=== PATIENT | male | born 1950 | race Caucasian/White ===

== ENCOUNTER 2017-06-11 06:19 | Day surgery (SDC) | payer MEDICARE ==
[2017-06-10 15:34] VITALS: BMI 42.7
[2017-06-11] MEDS ORDERED: CEFAZOLIN/Water 2 GM/20 ML SYRINGE ONE (08:14)
[2017-06-11 08:38] LABS: #Eosinphils 0.1 thou/uL (0.0-0.7); #Monocytes 0.7 thou/uL (0.11-0.59); #Neutrophils 8.6 thou/uL (1.40-6.50); %Basophils 0.1 % (0.0-1.0); %Eosinophils 1.2 % (0.0-10.0); %Monocytes 6.8 % (0.0-10.0); Hematocrit 22.7 % (42.0-52.0); Mean Platelet Volume 6.7 fL (7.4-10.4); Red Blood Cell (RBC) Count 2.61 mill/uL (4.70-6.10); White Blood Cell (WBC) Count 10.4 thou/uL (4.8-10.8)
[2017-06-11 08:41] LABS: Bilirubin Negative (Negative); Blood, Urine Moderate (Negative); Glucose, Urine (Dipstick) Negative (Negative); Ketone, Urine Trace mg/dL (Negative); Nitrite Negative (Negative); Protein, Urine (Dipstick) 100 mg/dL (Neg-Trace); Urobilinogen 0.2 mg/dL (0.2-1.0)
[2017-06-11 08:45] LABS: PTT 30.2 SEC (22.9-36.1); Prothrombin Time 15.7 SEC (12.0-14.7)
[2017-06-11 08:50] LABS: Anion Gap 12 mmol/L (10-20); BUN (Urea Nitrogen) 44 mg/dL (8.4-25.7); Calc. Creatinine Clearance 51 mL/min (70-130); Calcium 8.3 mg/dL (7.8-10.44); Carbon Dioxide 28 mmol/L (23-31); Chloride 105 mmol/L (98-107); Estimated GFR-MDRD 22
[2017-06-11] MEDS ORDERED: Promethazine HCl 25 MG/ML VIAL ONE (08:58)
[2017-06-11] MEDS ORDERED: Fentanyl 100 MCG/2 ML VIAL ONE (08:58)
[2017-06-11] MEDS ORDERED: Sodium Chloride 0.9% 10 ML ONE (08:59)
[2017-06-11 09:09] LABS: Bacteria/HPF 1+ HPF (None Seen); Hyaline Casts/LPF NONE SEEN LPF (0-3 Hyaline); RBC/HPF 0-3 HPF (0-3); Squamous Epithelial 0-3 HPF (0-3); WBC/HPF 0-3 HPF (0-3)
[2017-06-11] MEDS ORDERED: Glycopyrrolate 0.2 MG/ML 5 ML SYRINGE ONE (09:37)
[2017-06-11] MEDS ORDERED: ePHEDrine/0.9% NaCl/PF SYRINGE 50 mg/10 ml ONE (09:37)
[2017-06-11] MEDS ORDERED: Lidocaine 1% PF 5 ML VIAL ONE (09:37)
[2017-06-11] MEDS ORDERED: Ondansetron HCl/PF 4 MG/2 ML Vial ONE (09:37)
[2017-06-11] MEDS ORDERED: PHENYLEPHRINE-NS 100 MCG/ML 10 ML SYRINGE ONE (09:37)
[2017-06-11] MEDS ORDERED: Propofol 200 MG/20 ML VIAL ONE (09:37)
--- NOTE | 2017-06-11 09:45 | RAD ---
CHEST ONE VIEW: HISTORY: Preop. COMPARISON: 02/25/2017 FINDINGS: The cardiac silhouette is magnified and at the upper limits of normal in size. Pulmonary vasculatur e is at the upper limits of normal and accentuated by shallow inspiration. Mediastinum is midline w ith postoperative changes evident. Opacity at each costophrenic angle, greater on the right, has th e appearance of pleural fluid. IMPRESSION: Borderline pulmonary vascular congestion with small bilateral pleural effusions. POS: [facility]
[2017-06-11] MEDS ORDERED: Nystatin Cream 30 GM TUBE TOP SCH (10:00)
[2017-06-11] MEDS ORDERED: Bacitracin Zinc Ointment 30 gm TUBE ONE (10:10)
[2017-06-11] MEDS ORDERED: Furosemide 20 MG/2 ML VIAL ONE (10:37)
[2017-06-11] MEDS ORDERED: HYDROcodone/Acetaminophen 5/325 mg Tablet ONE (13:34)
--- NOTE | 2017-06-11 14:33 | OP ---
DATE OF SURGERY: 06/11/2017 PREOPERATIVE DIAGNOSIS: Right patellar tendon, 2 cm open wound with exposed tendon. FINDINGS: 1. Right patellar tendon, 2 cm open wound with exposed tendon. No gross infection. 2. Multiple fungal infection areas, perineum and distal two-thirds of the leg. COMPLICATIONS: None. TOURNIQUET TIME: None. ESTIMATED BLOOD LOSS: Less than or equal to 5 mL. PROCEDURE: 1. Debridement of wound. 2. Patellar tendon tenotomy. 3. Application of Integra graft, 2 inch x 2 inch to cover what really was a 1.5 inch diameter wound rectangular shaped. 4. Application of nystatin ointment to all the fungal areas of the right leg and the perineum at th e end of the procedure. COMPLICATIONS: At the end of the procedure after we had placed the dressings on the fungal portions of the leg and the patella operation, the patient began to have copious bowel movements requiring c hanges of dressing and perineal care. This occurred in the operating room. ANESTHESIA: Anesthesia by [facility]. PROCEDURE IN DETAIL: The limb prepped and draped. Timeout was done appropriately. The patient was large and had to be placed on the bed using a HoverMatt. HoverMatt had been deflated. We did tie lower extremity completely prepped and draped the ankle and foot covered with a sterile s tockinette, we then began a debridement. We used a tenotomy scissor, 11 blade knife, Adson's, and a curet. We debrided the wound edges down to include the fascia and patellar tendon. I then perform ed patellar tenotomy approximately 1-1.5 mm stick accomplished to get to fresh tendon as the remaini ng tendon seen was already exposed to the air. We then dissected around the tissue between the tend on and the subcutaneous tissue and the tendon and deep and we did not find a joint infection, both v isible or expressible. We irrigated the area with 500 mL normal saline. We obtained hemostasis. We then placed Integra gr aft on the wound, stapled it down appropriately, including stapled in the center. It was then bolst ered with bacitracin under Adaptic under soaked salt mineral oil cotton balls. All was stapled. Th ere was no gross motion at the bolstered area. This would be with the knee flexed 90 degrees, but t he patient does not ambulate. We then placed bacitracin on the patient's leg from the edge of the patella tendon dressing to the m edial malleolus and cover that with a Kerlix, and then placed [place] wrap on both. When we tried to pr epare the patient to leave the bed, he began to have a bowel movement described above which required cleaning, and eventually had to place him in a diaper. He left; however, with this cleaned with ev idence of an external hemorrhoid. Bacitracin was also applied in the scrotal area where he had some fungus as well. The patient went to recovery room without evidence of anesthetic or operative complication.
--- NOTE | 2017-06-11 16:13 | EKG ---
Test Reason : PREOP Blood Pressure : / mmHG Vent. Rate : 106 BPM Atrial Rate : 106 BPM P-R Int : 000 ms QRS Dur : 086 ms QT Int : 350 ms P-R-T Axes : 065 017 160 degrees QTc Int : 464 ms Sinus tachycardia Low voltage QRS Possible Inferior infarct (cited on or before 05-NOV-1996) Abnormal ECG When compared with ECG of 23-JAN-2017 09:43, Vent. rate has increased BY 44 BPM T wave inversion more evident in Lateral leads Confirmed by DR. Teetee VALDIVIA ([id number]) on 06/11/2017 4:13:02 PM Referred By: TAMI Confirmed By:DR. Teetee VALDIVIA
== END 2017-06-11 13:55 | disposition home or self-care (01) ==
LOC: SDC 06:19
PROVIDERS: ATTEND Orthopaedic Surgery Hand Surgery
DX: T81.4XXA Infection following a procedure, initial encounter (principal); S82.191G Other fracture of upper end of right tibia, subsequent encounter for closed fracture with delayed healing; E11.40 Type 2 diabetes mellitus with diabetic neuropathy, unspecified; E11.319 Type 2 diabetes mellitus with unspecified diabetic retinopathy without macular edema; E11.21 Type 2 diabetes mellitus with diabetic nephropathy; E78.5 Hyperlipidemia, unspecified; I11.0 Hypertensive heart disease with heart failure; I50.9 Heart failure, unspecified; I25.10 Atherosclerotic heart disease of native coronary artery without angina pectoris; K21.9 Gastro-esophageal reflux disease without esophagitis; E03.9 Hypothyroidism, unspecified; E66.9 Obesity, unspecified; Z88.2 Allergy status to sulfonamides; Z98.890 Other specified postprocedural states
CPT/HCPCS: 15273; 71010; 80048; 81001; 82962; 85025; 85610; 85730; 93005; C9363; 36416; 93010; A4216; J1170; J1940; J2001; J2405; J2550; J2704; J3010; J3490

== ENCOUNTER 2017-08-10 19:12 | Inpatient (IN) | payer MEDICARE ==
[2017-08-10 20:18] LABS: #Eosinphils 0.2 thou/uL (0.0-0.7); #Lymphocytes 1.3 thou/uL (1.20-3.40); #Monocytes 0.8 thou/uL (0.11-0.59); %Eosinophils 2.1 % (0.0-10.0); %Lymphocytes 12.4 % (21.0-51.0); %Monocytes 8.1 % (0.0-10.0); %Neutrophils 77.5 % (42.0-75.0); Hemoglobin 7.3 g/dL (14.0-18.0); Mean Corpuscular HGB CONC 31.6 g/dL (32.0-36.0); Mean Corpuscular Volume 88.6 fl (80.0-94.0); Mean Platelet Volume 6.5 fL (7.4-10.4); Platelet Count 440 thou/uL (130-400); RBC Distribution Width 15.8 % (11.5-14.5); Red Blood Cell (RBC) Count 2.62 mill/uL (4.70-6.10); White Blood Cell (WBC) Count 10.3 thou/uL (4.8-10.8)
[2017-08-10 20:42] LABS: ALT (SGPT) 16 U/L (8-55); AST (SGOT) 21 U/L (5-34); Albumin 2.6 g/dL (3.4-4.8); Alkaline Phosphatase 120 U/L (40-150); Anion Gap 15 mmol/L (10-20); BUN (Urea Nitrogen) 72 mg/dL (8.4-25.7); Bilirubin, Total 0.3 mg/dL (0.2-1.2); Calc. Creatinine Clearance 0 mL/min (70-130); Calcium 8.9 mg/dL (7.8-10.44); Carbon Dioxide 25 mmol/L (23-31); Chloride 102 mmol/L (98-107); Estimated GFR-MDRD 18; Globulin 4.6 g/dL (2.4-3.5); Glucose 144 mg/dL (80-115); Potassium 4.5 mmol/L (3.5-5.1); Protein, Total 7.2 g/dL (5.8-8.1); Sodium 137 mmol/L (136-145)
[2017-08-10] MEDS ORDERED: Fentanyl 100 MCG/2 ML VIAL ONE (21:14)
[2017-08-10 22:33] LABS: Bilirubin Negative (Negative); Blood, Urine Moderate (Negative); Clarity CLOUDY (Clear); Glucose, Urine (Dipstick) Negative (Negative); Leukocyte Moderate (Negative); Nitrite Positive (Negative); Protein, Urine (Dipstick) 300 mg/dL (Neg-Trace); Specific Gravity, Urine 1.014 (1.002-1.036); Urobilinogen 0.2 mg/dL (0.2-1.0)
[2017-08-10 22:34] LABS: Bacteria/HPF 1+ HPF (None Seen); Hyaline Casts/LPF 0-3 HYALINE CAST LPF (0-3 Hyaline); Pathc Cast-AUWi Flag 0.13 (0-2.49); RBC/HPF 21-50 HPF (0-3); Squamous Epithelial None Seen HPF (0-3)
--- NOTE | 2017-08-10 23:40 | RAD ---
EXAM: RIGHT KNEE THREE VIEWS 08/10/17 HISTORY: Cellulitis. COMPARISON: None. FINDINGS: There is a fracture and irregularity involving the proximal tibial extensive sclerosis is identified. The possibility of an incompletely healed fracture is raised. An underlying infectious process canno t be excluded. Extensive enthesopathic change and bony hypertrophy is noted. Incompletely evaluated internal fixation hardware is present. There is evidence of a suprapatellar effusion. IMPRESSION: Incompletely healed fracture. Acute fracture or osteomyelitis cannot be excluded. Comparison with tonja or radiographs would be beneficial. The only prior radiography available is a two views right tibia/f ibula on 01/23/17 at the time of fracture. POS: [facility]
--- NOTE | 2017-08-11 00:18 | ULT ---
EXAM: RIGHT LOWER EXTREMITY VENOUS ULTRASOUND AND DOPPLER HISTORY: Cellulitis. Pain. COMPARISON: 02/04/2017 TECHNIQUE: Bolanos scale, color flow, Doppler imaging, and spectral wave form analysis performed of the right lower extremity venous system. FINDINGS: There is compressibility, presence of flow and augmentation in the common femoral vein, femoral vein, and popliteal vein. There is flow in the greater saphenous veins, profunda vein, and posterior tibi al vein. In the region of the common femoral vein and greater saphenous vein, there is a mildly enlarged lymph node with a preserved fatty hilum measuring 1.5 x 0.9 cm. In the posterior medial right knee, there is a complex echotexture collection measuring 5.1 x 3.7 x 9 .4 cm. The possibility of a complex fluid collection cannot be excluded. Better interrogation with MRI may be beneficial. IMPRESSION: 1. No evidence of thrombus in the right lower extremity deep venous system. 2. Enlarged right lower extremity lymph nodes, presumably reactive. 3. Complex fluid in the right lower extremity is suspected. Better interrogation with MRI is recomme nded. POS: [facility]
[2017-08-11] MEDS ORDERED: hydrALAZINE 20 MG/ML VIAL SLOW IVP PRN (01:14)
[2017-08-11] MEDS ORDERED: Dextrose 50% Abboject 50 ML SYRINGE SLOW IVP PRN (01:14)
[2017-08-11] MEDS ORDERED: Ondansetron ODT 4 MG TAB PO PRN (01:14)
[2017-08-11] MEDS ORDERED: Dextrose 5% in Water 1,000 ML IV PRN (01:14)
[2017-08-11] MEDS ORDERED: Ondansetron HCl/PF 4 MG/2 ML Vial IVP PRN (01:14)
--- NOTE | 2017-08-11 02:37 | HP ---
PRIMARY CARE PHYSICIAN: Vince Morales MD CHIEF COMPLAINT: "My legs have been becoming more sore for the last 3 days." HISTORY OF PRESENT ILLNESS: Mr. Snow is a pleasant 66-year-old gentleman who has a history of di abetes mellitus as well as hypertension. The patient recently had surgery on his right knee in which he had some rods and pins placed as well as had some infected hardware removed. He was treated in [facility] facility and placed on vancomycin and cefepime in which he took until the end of March. He says that he was doing fine until about 3-4 days ago when he noticed that his right leg was becoming more and more sore. He lives at [facility] and the nurse there noted some drainage from the knee as we ll. He says he is unable to tell whether or not there was more redness because he is unable to look down to see his legs, but because of the drainage and the soreness, he was sent to the emergency room at the [facility]. He was evaluated and then transferred to our facility for further evaluation due to concern for cellulitis and possible infected joints. The patient denies any fevers or chills. No other significant complaints. He is basically nonambulatory, but says he was able to do some transferring in and out of bed on his own, but he says this has become more difficult due to the pain. REVIEW OF SYSTEMS: Constitutional: He denies any fevers or chills, no night sweats or weight loss. HEENT: No headaches, no dizziness, no visual changes, no sore throat, no rhinorrhea, neck pain, no adenopathy. Pulmonary: No hemoptysis, no cough, no wheezing. Cardiovascular: He denies any chest pain, no shortness of breath, no PND, no orthopnea. Gastrointestinal: No abdominal pain, no nausea, no vomiting, no change in bowels. Genitourinary: No urinary frequency, hematuria, no hesitancy. N eurologic: No focal weakness, numbness, no seizures. Psychiatric: No symptoms of anxiety or depres royer. Skin and Integument: As the history of present illness. PAST MEDICAL HISTORY: Significant for diabetes mellitus type 1. He says he has been diabetic for 50 years, chronic kidney disease stage 4, hypertension, and coronary artery disease. PAST SURGICAL HISTORY: He has had coronary artery bypass surgery, left ankle surgery, right elbow bruce rgery, fifth toe on the right foot amputated, as well as the knee surgery, and hardware removal. SOCIAL HISTORY: He resides at [facility]. He is a nonsmoker, nondrinker. He has 2 children. He is . His surrogate decision maker is Mr. Edison Rivera and he would like to be a FULL CODE . FAMILY HISTORY: Significant for diabetes in his mother as well as coronary artery disease in his fat her. ALLERGIES: SULFA. MEDICATIONS: Taken from the records from [facility] and include aspirin 81 mg daily, Lipitor 40 m g daily, bumetanide 0.5 mg twice a day, calcium acetate 667 mg 2 tablets t.i.d., docusate 100 mg p.r. n., Cymbalta 60 mg daily, fentanyl patch 25 mcg every 3 days, Gas-X p.r.n., hydralazine 25 mg q.i.d., Humalog insulin 5 units t.i.d. with meals, [place] 5/325 q.4 p.r.n., omeprazole 20 mg daily, Lantus in sulin 35 units twice a day, Zofran 4 mg p.r.n., MiraLax 17 grams daily, Synthroid 25 mcg daily, Floma x 0.4 mg daily, Xanax 0.5 mg as needed, vitamin C daily, and Crestor 20 mg daily. PHYSICAL EXAMINATION: GENERAL: He is alert and oriented. He appears to be in no acute distress. VITAL SIGNS: Blood pressure was 111/48, heart rate 91, respiratory rate of 16, temperature is 98.2. HEENT: Pupils are equal, round, and reactive. Extraocular muscles are intact. Sclerae are anicteri c. Throat: There is no erythema, no exudates. NECK: No adenopathy, no bruits. LUNGS: Clear. There is no wheezing, no rales. CARDIOVASCULAR: He has normal S1, S2. I did not appreciate an S3 or S4. No murmurs, clicks, or rub s. ABDOMEN: Obese, it is soft, it is nontender, nondistended. Positive for bowel sounds. No rebound o r guarding. EXTREMITIES: He has got chronic venous stasis changes bilaterally. On his right knee, he has some s erous drainage. There are approximately four ryanne that are still in place. The skin is thickened . He has got some scaling there on most of the calf as well as some erythema and mild warmth. His f ifth toes amputated on the right foot, he has got diminished, but palpable dorsalis pedis pulses. Al so, on the left leg, there is some excoriation and some erythema as well. NEUROLOGICALLY: The exam is grossly nonfocal. SIGNIFICANT LABORATORY: White blood cell count 10.3, hemoglobin 7.3, hematocrit is 23.2, platelet co unt is 440. Sodium 137, potassium 4.5, chloride is 102, CO2 is 25, BUN of 72, creatinine 3.41, gluco se is 144. C-reactive protein is elevated at 18.81. ASSESSMENT AND PLAN: 1. This is a pleasant 66-year-old gentleman who has developed some pain as well as redness and drain age from the right knee as well as an area that appears to be cellulitis in the right lower extremity . It is possible that he has recrudescence of the infection that he had treated back in March. The plan will be to place him in the hospital and we will start him on IV antibiotics. We will place jhony hawk on the antibiotics that he had been treated on his prior hospitalization and this included vancomyc in and cefepime. We will consult Infectious Disease for aid in antibiotic choice and length of thera py and we will also consult Orthopedic Surgery in the event that the joint is infected. 2. Diabetes mellitus. We will go ahead and continue his usual medications as well as sliding scale insulin. 3. Chronic kidney disease, stage 4. He appears to have some degree of acute renal failure on top of chronic kidney disease. This could be related to the infection. We will continue to monitor his cr eatinine and consult Nephrology if needed. 4. Coronary artery disease. This appears to be clinically stable. We will continue his medications regarding coronary artery disease. 5. The patient will be placed on deep venous thrombosis and gastrointestinal prophylaxis.
[2017-08-11] MEDS: Levothyroxine Sodium 25 MCG TAB PO SCH (06:04)
[2017-08-11] MEDS: Cefepime 1 GM, Admixture Fee 1 EACH in Sterile Water 10 ML SLOW IVP SCH (06:06)
[2017-08-11] MEDS: HYDROcodone/Acetaminophen 5/325 mg Tablet PO PRN ×4 (06:10→20:53)
[2017-08-11 06:34] LABS: #Eosinphils 0.2 thou/uL (0.0-0.7); #Monocytes 0.7 thou/uL (0.11-0.59); #Neutrophils 7.7 thou/uL (1.40-6.50); %Basophils 0.4 % (0.0-1.0); %Lymphocytes 10.1 % (21.0-51.0); %Monocytes 7.5 % (0.0-10.0); Hemoglobin 7.7 g/dL (14.0-18.0); Mean Corpuscular Hemoglobin 28.5 pg (27.0-31.0); Mean Platelet Volume 6.9 fL (7.4-10.4); Platelet Count 432 thou/uL (130-400); RBC Distribution Width 15.5 % (11.5-14.5); White Blood Cell (WBC) Count 9.6 thou/uL (4.8-10.8)
[2017-08-11 06:51] LABS: Anion Gap 16 mmol/L (10-20); BUN (Urea Nitrogen) 69 mg/dL (8.4-25.7); Calc. Creatinine Clearance 38 mL/min (70-130); Calcium 8.8 mg/dL (7.8-10.44); Carbon Dioxide 22 mmol/L (23-31); Chloride 104 mmol/L (98-107); Estimated GFR-MDRD 19; Glucose 182 mg/dL (80-115); Potassium 4.7 mmol/L (3.5-5.1); Sodium 137 mmol/L (136-145)
--- NOTE | 2017-08-11 08:47 | CON ---
DATE OF CONSULTATION: 08/11/2017 ORTHOPEDIC CONSULTATION REQUESTING PHYSICIAN: Dr. Kip Will. CONSULTING PHYSICIAN: Dr. Clem Hussein. REASON FOR CONSULTATION: Left knee recurrent cellulitis. BRIEF CLINICAL HISTORY: Rashad is a 66-year-old white male well known to our service for a closed red uction with intramedullary nail fixation of a proximal tibia fracture in 01/2017. The patient underw ent hardware removal in February of last year as well for skin breakdown and a wound infection. He was t reated aggressively with intravenous antibiotics and subsequent infection did resolve. Dr. Ordoñez took the patient back to surgery in 06/11/2017 where he underwent a patellar tendon graft using the I ntegra patch, then a primary closure of his knee wound which was the entry site for his original nail fixation. Since then, apparently patient lost to follow up. He lives at [facility] and I do not see any record of him returning to Dr. Ordoñez's clinic for subsequent evaluation and followup. Pl ain radiographs obtained in the emergency room yesterday showed hardware to be intact and he has good bony callus formation at the meta-diaphyseal fracture site, but also noted on this view was #7 stain less steel ryanne present, presumably these have replaced in June as I have read Dr. Ordoñez's operative report. He was admitted to Medicine Service, started on antibiotics. Our service was cons ulted for evaluation of the cellulitis and hardware status. Also of note, on his prior admission in February he had polymicrobial infection of the wound to include Staph epidermidis MRSA as well. Subjectively, the patient has been doing relatively well in the last couple of months. He has been a mbulating and transferring, but he does very short distances and requires maximal assist to do so. He has been essentially pain free until about 4 days ago when he started to have swelling and discomf ort in the right knee. He tells me that several people have enquired about ryanne in his right knee , but I believe his vision is poor and he is unaware of these. On exam, visual inspection of the right knee demonstrates him to have erythema extending down the kne e, circumferential all the way down to the foot. He has +1 to 2 pitting edema and this is chronic fo r him. He is neurovascularly intact, but his knee is stiff. He cannot fully extend and this is new for him. IMAGING STUDIES: Three views of right knee demonstrates intramedullary nail with some lysis noted ar ound both proximal screws. He also has some joint line changes consistent with periarticular erosion s best appreciated on AP view. A large callus formation is noted at meta-diaphyseal fracture site. LABORATORY DATA: White blood cell count was 9.6 this morning, it was 10.3 yesterday. Hemoglobin 7.7 , hematocrit 24.1, consistent with chronic anemia secondary to chronic renal disease. BUN 69, and cr eatinine is 3.24. C-reactive protein is 18.81. IMPRESSION: 1. Right knee and leg cellulitis secondary to retained chronic ryanne. 2. Chronic renal insufficiency. 3. Diabetes type 2. 4. Hyperglycemia. 5. Retained hardware tibia in the form of intramedullary nail. As to whether or not the joint itsel f is involved is unknown, this may be just a severe cellulitis in superficial. PLAN: 1. Treat conservatively with antibiotics. 2. Squires will be removed today. 3. We will follow along with medicine, but as to whether or not to explore the joint and explant the hardware, we will decide later this evening. No operative plans have been made at this point, but marlene cheung may post him for a later date if his cellulitis does not improve and his knee pain amplifies.
[2017-08-11] MEDS ORDERED: Cefepime 1 GM in Sodium Chloride 0.9% 100 ML IVPB SCH (09:00)
[2017-08-11] MEDS: Calcium Acetate 667 MG CAP PO SCH ×3 (09:55→17:36)
[2017-08-11] MEDS: Docusate 100 MG CAP PO SCH ×2 (09:56→20:54)
[2017-08-11] MEDS: Bumetanide 1 MG TAB PO SCH (09:56)
[2017-08-11] MEDS: Aspirin 81 mg Enteric Coated Tablet PO SCH (09:56)
[2017-08-11] MEDS: DULoxetine 60 MG CAP PO SCH (09:57)
[2017-08-11] MEDS: Famotidine 20 MG TAB PO SCH (09:57)
[2017-08-11] MEDS: hydrALAZINE 25 MG TAB PO SCH ×4 (09:57→20:55)
[2017-08-11] MEDS: Heparin 5,000 UNITS/ML VIAL SC SCH ×3 (09:58→20:56)
[2017-08-11] MEDS: Rosuvastatin 20 MG TAB PO SCH (09:58)
[2017-08-11] MEDS: Insulin Detemir 100 UNITS/ML 35 UNITS in Pre-Filled Syringe 1 EACH SC SCH ×2 (10:04→20:56)
[2017-08-11] MEDS: Polyethylene Glycol 3350 17 GM Packet PO SCH (10:05)
--- NOTE | 2017-08-11 10:34 | PDOC.PN ---
- Subjective Encounter Start Date: 08/11/17 Encounter Start Time: 09:30 -: old records requested/rev Patient seen and examined. No new complaints. No overnight events - Objective Resuscitation Status: Resuscitation Status FULL:Full Resuscitation MAR Reviewed: Yes Vital Signs & Weight: Vital Signs (12 hours) Temp Pulse Resp BP Pulse Ox 08/11/17 09:57 89 08/11/17 08:33 98.4 F 89 19 98/49 L 97 08/11/17 01:14 98.2 F 96 20 117/55 L 100 Weight Weight 264 lb 8.875 oz I&O: 08/10/17 08/11/17 08/12/17 06:59 06:59 06:59 Intake Total 450 Output Total 620 Balance -170 Result Diagrams: 08/11/17 06:03 08/11/17 06:03 Additional Labs: Accuchecks 08/11/17 06:20 POC Glucose 185 H Phys Exam - Physical Examination Constitutional: NAD HEENT: PERRLA, moist MMs, sclera anicteric Neck: no JVD, supple Respiratory: no wheezing, no rales, no rhonchi Cardiovascular: RRR, no significant murmur, no rub Gastrointestinal: soft, non-tender, no distention, positive bowel sounds Musculoskeletal: pulses present right leg cellulitis Neurological: non-focal, normal sensation Psychiatric: normal affect Skin: no rash, normal turgor Dx/Plan (1) Cellulitis of right lower extremity Code(s): L03.115 - CELLULITIS OF RIGHT LOWER LIMB Status: Acute (2) Anemia of renal disease Code(s): D63.1 - ANEMIA IN CHRONIC KIDNEY DISEASE Status: Chronic (3) CAD (coronary artery disease) Code(s): I25.10 - ATHSCL HEART DISEASE OF [place] CORONARY ARTERY W/O ANG PCTRS Status: Chronic Qualifiers: (4) DM2 (diabetes mellitus, type 2) Status: Chronic Qualifiers: (5) HTN (hypertension) Code(s): I10 - ESSENTIAL (PRIMARY) HYPERTENSION Status: Chronic (6) Neuropathy Code(s): G62.9 - POLYNEUROPATHY, UNSPECIFIED Status: Chronic (7) Obesity (BMI 30-39.9) Code(s): E66.9 - OBESITY, UNSPECIFIED Status: Chronic - Plan cont current plan of care, continue antibiotics * skin care * continue iv antibiotics as per below * ortho help appreciated * ryanne removed * medication reviewed as below * symptomatic treatment Review of Systems - Review of Systems Constitutional: negative: fever, chills, sweats, weakness, malaise, other ENT: negative: Ear Pain, Ear Discharge, Nose Pain, Nose Discharge, Nose Congestion, Mouth Pain, Mouth Swelling, Throat Pain, Throat Swelling, Other Respiratory: negative: Cough, Dry, Shortness of Breath, Hemoptysis, SOB with Excertion, Pleuritic Pain, Sputum, Wheezing Cardiovascular: negative: chest pain, palpitations, orthopnea, paroxysmal nocturnal dyspnea, edema, light headedness, other Gastrointestinal: negative: Nausea, Vomiting, Abdominal Pain, Diarrhea, Constipation, Melena, Hematochezia, Other Genitourinary: negative: Dysuria, Frequency, Incontinence, Hematuria, Retention , Other Musculoskeletal: Leg Pain. negative: Neck Pain, Shoulder Pain, Arm Pain, Back Pain, Hand Pain, Foot Pain, Other - Medications/Allergies Allergies/Adverse Reactions: Allergies Allergy/AdvReac Type Severity Reaction Status Date / Time Sulfa (Sulfonamide Allergy Verified 06/10/17 15:34 Antibiotics) Medications: Current Medications Acetaminophen (Tylenol) 650 mg PO Q4H PRN PRN Reason: Headache/Fever or Pain Hydrocodone Bitart/Acetaminophen ([place] 5/325) 1 tab PO Q4H PRN PRN Reason: Moderate Pain (4-6) Last Admin: 08/11/17 09:53 Dose: 1 tab Aspirin (Ecotrin) 81 mg PO DAILY [facility] Last Admin: 08/11/17 09:56 Dose: 81 mg Bumetanide (Bumex) 0.5 mg PO DAILY [facility] Last Admin: 08/11/17 09:56 Dose: 0.5 mg Calcium Acetate (Phoslo) 1,334 mg PO TID-[facility] Last Admin: 08/11/17 09:55 Dose: 1,334 mg Dextrose/Water (Dextrose 50%) 25 gm SLOW IVP PRN PRN PRN Reason: Hypoglycemia Docusate Sodium (Colace) 100 mg PO BID [facility] Last Admin: 08/11/17 09:56 Dose: 100 mg Duloxetine HCl (Cymbalta) 60 mg PO DAILY [facility] Last Admin: 08/11/17 09:57 Dose: 60 mg Famotidine (Pepcid) 20 mg PO DAILY [facility] Last Admin: 08/11/17 09:57 Dose: 20 mg Glucagon (Glucagon) 1 mg IM PRN PRN PRN Reason: Hypoglycemia Heparin Sodium (Porcine) (Heparin) 5,000 units SC TID [facility] Last Admin: 08/11/17 09:58 Dose: 5,000 units Hydralazine HCl (Apresoline) 10 mg SLOW IVP Q4H PRN PRN Reason: Systolic BP > 180 Hydralazine HCl (Apresoline) 25 mg PO QID [facility] Last Admin: 08/11/17 09:57 Dose: 25 mg Dextrose/Water (D5w) 1,000 mls @ 0 mls/hr IV .Q0M PRN; As Directed PRN Reason: Hypoglycemia Insulin Detemir 35 units/ (Miscellaneous Medication) 0.35 mls @ 0 mls/hr SC HS CROW Insulin Detemir 35 units/ (Miscellaneous Medication) 0.35 mls @ 0 mls/hr SC QAM [facility] Last Admin: 08/11/17 10:04 Dose: 0.35 mls Vancomycin HCl 1.25 gm/ Sodium (Chloride) 250 mls @ 166.667 mls/hr IVPB 2000 [facility] Cefepime HCl 1 gm/Miscellaneous Medication 1 each/ Sterile Water 10 mls @ 120 mls/hr SLOW IVP 0600 [facility] Last Admin: 08/11/17 06:06 Dose: 10 mls Insulin Human Lispro (Humalog) 0 units SC .BEDTIME SLIDING SC PRN PRN Reason: Bedtime Correctional Scale Insulin Human Lispro (Humalog) 0 units SC .MODERATE SLIDING SC PRN PRN Reason: Moderate Correctional Scale Levothyroxine Sodium (Synthroid) 25 mcg PO 0600 [facility] Last Admin: 08/11/17 06:04 Dose: Not Given Magnesium Hydroxide (Milk Of Magnesium) 30 ml PO DAILYPRN PRN PRN Reason: Constipation Miscellaneous Medication (Pharmacy To Dose) 1 each IVPB PRN PRN PRN Reason: Pharmacy to dose Ondansetron HCl (Zofran Odt) 4 mg PO Q6H PRN PRN Reason: Nausea/Vomiting Ondansetron HCl (Zofran) 4 mg IVP Q6H PRN PRN Reason: Nausea/Vomiting Polyethylene Glycol (Miralax) 17 gm PO DAILY [facility] Last Admin: 08/11/17 10:05 Dose: 17 gm Rosuvastatin Calcium (Crestor) 20 mg PO QAM CROW Last Admin: 08/11/17 09:58 Dose: 20 mg Sodium Chloride (Flush - Normal Saline) 10 ml IVF Q12HR CROW Last Admin: 08/11/17 06:06 Dose: 10 ml Sodium Chloride (Flush - Normal Saline) 10 ml IVF PRN PRN PRN Reason: Saline Flush Tamsulosin HCl (Flomax) 0.4 mg PO HS CROW
--- NOTE | 2017-08-11 12:54 | CON ---
DATE OF CONSULTATION: 08/11/2017 REASON FOR CONSULTATION: Inflammatory process of right lower extremity. HISTORY OF PRESENT ILLNESS: A 66-year-old whom I had seen at end of January last year when he presented with a history of type 2 diabetes, hypertension, stage III renal insufficiency who sustained a fall and had a tibia fibula fracture in January of last year. The patient had intramedullary nailing with lo cking screws and then he was given Omnicef for some indication probably cellulitis, then developed in flammatory changes in the right leg with pain, admitted with hypotension. Patient was given IV vanco mycin. At that time, Pseudomonas mendocina was isolated from the site and he was continued on vancom ycin and cefepime. Because of concern with deeper infection, he was continued on cefepime and vancom ycin till the end of March. In June of last year, he had a procedure to manage nonhealing wound in the right patellar tendon area with an area of exposed tendon and he underwent debridement of wou nd in patellar tenotomy application of a skin graft. At that point, we do not have any microbiology information. At this time, patient was brought in because of worsening inflammatory changes in the r ight lower extremity around the knee and some drainage in the anterior segment associated with rednes s. Initial laboratory data includes; white cell count of 10.3, hemoglobin 7.3, MCV 88, platelets 440 wit h 77% neutrophils and C-reactive protein was 18.81 and creatinine was a little bit higher than baseli ne at 3.41. There is x-ray of the knee, which showed incompletely healed fracture with irregularity involving the proximal tibial with extensive sclerosis identified. Currently, Mr. Rivera is awake. He does not have a lot of sensation in the right lower extremity. No headaches, no sore throat, marcos nophagia, dysphagia, no dyspnea, no cough or chest pain, no abdominal pain or diarrhea. He is able t o void without difficulty. PAST MEDICAL HISTORY: Includes obesity, type 2 diabetes, renal insufficiency stage 3, hypertension, neuropathy, fracture right lower extremity with open reduction and internal fixation which had to be removed, protracted treatment with cefepime and vancomycin and then a skin graft for persistent wound area in the right patellar region on the right side. ALLERGIES: SULFA DRUGS with rash. CURRENT MEDICATIONS: Includes Tylenol, Neoga, Ecotrin, Bumex, PhosLo, cefepime, dextrose, Cymbalta, Pepcid, glucagon, Apresoline, insulin, levothyroxine, ondansetron, Crestor, tamsulosin, and vancomyci n. FAMILY HISTORY: Noncontributory. PHYSICAL EXAMINATION: VITAL SIGNS: Essentially normal. SKIN: Examination shows the areas of venous insufficiency, stasis dermatitis, hyperkeratosis in the legs. An area of erythema in the circumferential distribution with the epicenter right in the anteri or knee area, there is a depression at the center of the prepatellar region. A little bit of dried b lood. No purulence. The erythema extends from that area towards the entire anterior prepatellar reg ion extending almost circumferentially around the knee and lower to the upper segment of the right le g. The patient has peripheral IV access and no Knight catheter. No lymphadenopathy. HEENT: Ocular movements are conjugate. Patient has only a few remaining teeth in marked decay. NECK: Supple, no jugular vein distention. LUNGS: With symmetric clear breath sounds. HEART: S1, S2. No S3 or S4. ABDOMEN: Soft, not distended or tender. No ascites. No bladder distention. EXTREMITIES: Pulses are faintly palpable in dorsalis pedis. Capillary refill was normal. He has qu ite a bit of mobility impairment in lower extremities with stiffness, weakness. Plantar responses ar e indifferent in the upper extremities. He is able to move a little bit better, but he does have atr ophy of the interosseous muscles in the right hand, which is a chronic finding. NEUROLOGIC: His cognitive function is about the same. He is awake, follows commands. Fairly decent recollection. LABORATORY DATA: The latest creatinine down to 3.24, glucose 185, CO2 22. Liver profile normal. Al bumin 2.6 and again reviewing the cultures from February last year with MRSA from tibia tissue, Staph epi dermides, Staph aureus, MRSA, vancomycin MUSTAPHA was 1. ASSESSMENT: Diabetes type 2, renal insufficiency stage 4, hypertension, coronary artery disease, fra ctured right tibia and knee now with inflammatory process, removal of hardware and protracted treatme nt with antimicrobial therapy, now with recrudescence of inflammatory process following June proc edu. DISCUSSION: The concern is with osteomyelitis of the tibia including the possibility of chronic oste omyelitis versus a more superficial process. We will proceed with an MRI without contrast and contin ue antimicrobial therapy. We may need to request Orthopedic Surgery assistance to biopsy the area fo r cultures. It is likely that the same organisms involved in Denice process would be involved. We cou ld therefore potentially treat empirically as well. I believe blood cultures have been submitted. Fidel cheung will follow those.
[2017-08-11] MEDS: HumaLOG 300 UNITS/3 ML VIAL SC PRN (12:57)
[2017-08-11] MEDS: Acetaminophen 325 MG TAB PO PRN (17:37)
[2017-08-11] MEDS: Vancomycin HCl 1.25 GM in Sodium Chloride 0.9% 250 ML 250 ML IVPB SCH (20:51)
[2017-08-11] MEDS: Nystatin Ointment 15 GM TUBE TOP SCH (20:52)
[2017-08-11] MEDS: Tamsulosin HCl 0.4 MG CAP PO SCH (20:53)
[2017-08-12 05:19] VITALS: BMI 37.8
[2017-08-12] MEDS: HumaLOG 300 UNITS/3 ML VIAL SC PRN (06:26)
[2017-08-12] MEDS: Levothyroxine Sodium 25 MCG TAB PO SCH (06:28)
[2017-08-12] MEDS: HYDROcodone/Acetaminophen 5/325 mg Tablet PO PRN ×4 (06:28→20:09)
[2017-08-12] MEDS: Cefepime 1 GM, Admixture Fee 1 EACH in Sterile Water 10 ML SLOW IVP SCH (06:29)
[2017-08-12] MEDS: Calcium Acetate 667 MG CAP PO SCH ×3 (09:42→16:04)
[2017-08-12] MEDS: Rosuvastatin 20 MG TAB PO SCH (09:42)
[2017-08-12] MEDS: Docusate 100 MG CAP PO SCH ×2 (09:42→19:59)
[2017-08-12] MEDS: hydrALAZINE 25 MG TAB PO SCH ×4 (09:42→20:01)
[2017-08-12] MEDS: Famotidine 20 MG TAB PO SCH (09:42)
[2017-08-12] MEDS: DULoxetine 60 MG CAP PO SCH (09:42)
[2017-08-12] MEDS: Insulin Detemir 100 UNITS/ML 35 UNITS in Pre-Filled Syringe 1 EACH SC SCH ×2 (09:43→19:59)
[2017-08-12] MEDS: Acetaminophen 325 MG TAB PO PRN (09:43)
[2017-08-12] MEDS: Aspirin 81 mg Enteric Coated Tablet PO SCH (09:43)
[2017-08-12] MEDS: Bumetanide 1 MG TAB PO SCH (09:46)
[2017-08-12] MEDS: Heparin 5,000 UNITS/ML VIAL SC SCH ×3 (09:46→19:59)
[2017-08-12] MEDS: Nystatin Ointment 15 GM TUBE TOP SCH ×2 (09:46→09:47)
[2017-08-12] MEDS: Polyethylene Glycol 3350 17 GM Packet PO SCH (09:47)
--- NOTE | 2017-08-12 10:22 | PDOC.PN ---
- Subjective Encounter Start Date: 08/12/17 Encounter Start Time: 09:10 Patient seen and examined. No new complaints. No overnight events pt is adament about going for MRI, as he has back pain and he can not tolerate MRI - Objective Resuscitation Status: Resuscitation Status FULL:Full Resuscitation MAR Reviewed: Yes Vital Signs & Weight: Vital Signs (12 hours) Temp Pulse Resp BP Pulse Ox 08/12/17 09:42 85 08/12/17 07:35 98.5 F 85 20 112/61 99 08/12/17 03:45 98.0 F 80 16 104/60 100 08/12/17 00:09 97.9 F 78 16 108/62 98 Weight Admit Weight 264 lb 8.864 oz Weight 264 lb I&O: 08/11/17 08/12/17 08/13/17 06:59 06:59 06:59 Intake Total 450 600 Output Total 620 Balance -170 600 Result Diagrams: 08/11/17 06:03 08/11/17 06:03 Additional Labs: Accuchecks 08/12/17 08/11/17 08/11/17 05:36 21:01 12:10 POC Glucose 165 H 225 H 219 H Phys Exam - Physical Examination Constitutional: NAD HEENT: PERRLA, moist MMs, sclera anicteric Neck: no JVD, supple Respiratory: no wheezing, no rales, no rhonchi Cardiovascular: RRR, no significant murmur, no rub Gastrointestinal: soft, non-tender, no distention, positive bowel sounds right lower extrimity swelling Neurological: non-focal, normal sensation Psychiatric: normal affect, A&O x 3 Skin: no rash, normal turgor Dx/Plan (1) Cellulitis of right lower extremity Code(s): L03.115 - CELLULITIS OF RIGHT LOWER LIMB Status: Acute (2) Anemia of renal disease Code(s): D63.1 - ANEMIA IN CHRONIC KIDNEY DISEASE Status: Chronic (3) CAD (coronary artery disease) Code(s): I25.10 - ATHSCL HEART DISEASE OF [place] CORONARY ARTERY W/O ANG PCTRS Status: Chronic Qualifiers: (4) DM2 (diabetes mellitus, type 2) Status: Chronic Qualifiers: (5) HTN (hypertension) Code(s): I10 - ESSENTIAL (PRIMARY) HYPERTENSION Status: Chronic (6) Neuropathy Code(s): G62.9 - POLYNEUROPATHY, UNSPECIFIED Status: Chronic (7) Obesity (BMI 30-39.9) Code(s): E66.9 - OBESITY, UNSPECIFIED Status: Chronic - Plan cont current plan of care, continue antibiotics * ID and ortho following * continue iv antibiotics * medication reviewed as below * symptomatic treatment * follow culture * will try to get MRI if pt agrees. Review of Systems - Review of Systems Constitutional: negative: fever, chills, sweats, weakness, malaise, other ENT: negative: Ear Pain, Ear Discharge, Nose Pain, Nose Discharge, Nose Congestion, Mouth Pain, Mouth Swelling, Throat Pain, Throat Swelling, Other Respiratory: negative: Cough, Dry, Shortness of Breath, Hemoptysis, SOB with Excertion, Pleuritic Pain, Sputum, Wheezing Cardiovascular: negative: chest pain, palpitations, orthopnea, paroxysmal nocturnal dyspnea, edema, light headedness, other Gastrointestinal: negative: Nausea, Vomiting, Abdominal Pain, Diarrhea, Constipation, Melena, Hematochezia, Other Genitourinary: negative: Dysuria, Frequency, Incontinence, Hematuria, Retention , Other Musculoskeletal: Back Pain, Leg Pain. negative: Neck Pain, Shoulder Pain, Arm Pain, Hand Pain, Foot Pain, Other - Medications/Allergies Allergies/Adverse Reactions: Allergies Allergy/AdvReac Type Severity Reaction Status Date / Time Sulfa (Sulfonamide Allergy Verified 06/10/17 15:34 Antibiotics) Medications: Current Medications Acetaminophen (Tylenol) 650 mg PO Q4H PRN PRN Reason: Headache/Fever or Pain Last Admin: 08/12/17 09:43 Dose: 650 mg Hydrocodone Bitart/Acetaminophen ([place] 5/325) 1 tab PO Q4H PRN PRN Reason: Moderate Pain (4-6) Last Admin: 08/12/17 06:28 Dose: 1 tab Alprazolam (Xanax) 0.25 mg PO TID PRN PRN Reason: Anxiety Aspirin (Ecotrin) 81 mg PO DAILY [facility] Last Admin: 08/12/17 09:43 Dose: 81 mg Bumetanide (Bumex) 0.5 mg PO DAILY [facility] Last Admin: 08/12/17 09:46 Dose: 0.5 mg Calcium Acetate (Phoslo) 1,334 mg PO TID-[facility] Last Admin: 08/12/17 09:42 Dose: 1,334 mg Dextrose/Water (Dextrose 50%) 25 gm SLOW IVP PRN PRN PRN Reason: Hypoglycemia Docusate Sodium (Colace) 100 mg PO BID [facility] Last Admin: 08/12/17 09:42 Dose: 100 mg Duloxetine HCl (Cymbalta) 60 mg PO DAILY [facility] Last Admin: 08/12/17 09:42 Dose: 60 mg Famotidine (Pepcid) 20 mg PO DAILY [facility] Last Admin: 08/12/17 09:42 Dose: 20 mg Glucagon (Glucagon) 1 mg IM PRN PRN PRN Reason: Hypoglycemia Heparin Sodium (Porcine) (Heparin) 5,000 units SC TID [facility] Last Admin: 08/12/17 09:46 Dose: 5,000 units Hydralazine HCl (Apresoline) 10 mg SLOW IVP Q4H PRN PRN Reason: Systolic BP > 180 Hydralazine HCl (Apresoline) 25 mg PO QID [facility] Last Admin: 08/12/17 09:42 Dose: 25 mg Dextrose/Water (D5w) 1,000 mls @ 0 mls/hr IV .Q0M PRN; As Directed PRN Reason: Hypoglycemia Insulin Detemir 35 units/ (Miscellaneous Medication) 0.35 mls @ 0 mls/hr SC HS [facility] Last Admin: 08/11/17 20:56 Dose: 0.35 mls Insulin Detemir 35 units/ (Miscellaneous Medication) 0.35 mls @ 0 mls/hr SC QAM [facility] Last Admin: 08/12/17 09:43 Dose: 0.35 mls Vancomycin HCl 1.25 gm/ Sodium (Chloride) 250 mls @ 166.667 mls/hr IVPB 2000 [facility] Last Admin: 08/11/17 20:51 Dose: 250 mls Cefepime HCl 1 gm/Miscellaneous Medication 1 each/ Sterile Water 10 mls @ 120 mls/hr SLOW IVP 0600 [facility] Last Admin: 08/12/17 06:29 Dose: 10 mls Insulin Human Lispro (Humalog) 0 units SC .BEDTIME SLIDING SC PRN PRN Reason: Bedtime Correctional Scale Insulin Human Lispro (Humalog) 0 units SC .MODERATE SLIDING SC PRN PRN Reason: Moderate Correctional Scale Last Admin: 08/12/17 06:26 Dose: 2 unit Levothyroxine Sodium (Synthroid) 25 mcg PO 0600 [facility] Last Admin: 08/12/17 06:28 Dose: 25 mcg Magnesium Hydroxide (Milk Of Magnesium) 30 ml PO DAILYPRN PRN PRN Reason: Constipation Miscellaneous Medication (Pharmacy To Dose) 1 each IVPB PRN PRN PRN Reason: Pharmacy to dose Nystatin (Mycostatin Ointment) 0 gm TOP DAILY [facility] Last Admin: 08/12/17 09:47 Dose: 1 applic Ondansetron HCl (Zofran Odt) 4 mg PO Q6H PRN PRN Reason: Nausea/Vomiting Ondansetron HCl (Zofran) 4 mg IVP Q6H PRN PRN Reason: Nausea/Vomiting Polyethylene Glycol (Miralax) 17 gm PO DAILY [facility] Last Admin: 08/12/17 09:47 Dose: 17 gm Rosuvastatin Calcium (Crestor) 20 mg PO QAM [facility] Last Admin: 08/12/17 09:42 Dose: 20 mg Sodium Chloride (Flush - Normal Saline) 10 ml IVF Q12HR [facility] Last Admin: 08/11/17 20:52 Dose: 10 ml Sodium Chloride (Flush - Normal Saline) 10 ml IVF PRN PRN PRN Reason: Saline Flush Tamsulosin HCl (Flomax) 0.4 mg PO HS [facility] Last Admin: 08/11/17 20:53 Dose: 0.4 mg
[2017-08-12] MEDS: ALPRAZolam 0.25 MG TAB PO PRN ×2 (11:34→20:57)
--- NOTE | 2017-08-12 13:15 | PQF ---
PRETTY HUNTLEY, AMIE PERALTA MD [id number] [id number] CLINICAL DOCUMENTATION IMPROVEMENT CLARIFICATION FORM: ICD-10 Updated PLEASE DO AN ADDENDUM TO THE PROGRESS NOTE WITH ANY DOCUMENTATION UPDATES OR ADDITIONS AND CARRY THROUGH TO DC SUMMARY. THANK YOU. DATE: 08-12-17 ATTN: DR. COLE Please exercise your independent, professional judgment in responding to the clarification form. Clinical indicators are provided on the bottom of this form for your review Please check appropriate box(s): [ ] UTI [ X ] Contaminated urine specimen without UTI [ ] Other diagnosis [ ] Unable to determine For continuity of documentation, please document condition throughout progress notes and discharge summary. Thank You. CLINICAL INDICATORS - SIGNS / SYMPTOMS / LABS ER: UTI 1-2 UA - MODERATE LEUKOCYTES BACTERIA - 1+ WBC - > 50 RISK FACTORS H&P DM CKD TREATMENT: MAR - IV VANCOMYCIN 1-3 IV MAXIPIME 1-3 THANK YOU, OPAL (This form is maintained as a part of the permanent medical record) 2014 [employer] All Rights Reserved Opal Costello, RN, BS [email or web address] [facility]
--- NOTE | 2017-08-12 13:48 | CON ---
DATE OF CONSULTATION: 08/12/2017 CHIEF COMPLAINT: Right lower extremity swelling and cellulitis. HISTORY OF PRESENT ILLNESS: Mr. Snow is a pleasant 66-year-old male who has been well known to o service. He recently had a tibia nail performed in 01/2017, had recurrent admission to the hospit al for drainage, had what appeared to be an infection and had hardware removed leaving the nail in pl kim with IV antibiotics for infection resolution. The patient was taken by Dr. Ordoñez on 06/2017 f or an Integra patch with primary closure of the original site. Patient stated up until a week ago he was doing well, at which time he noted to have increasing pain. The patient had admission to [facility] recently in the last couple of months. The patient walks short distances. He is able to t [employer] and ambulate short distances. PHYSICAL EXAMINATION: VITAL SIGNS: Today 98, 88, 20, 99 ON 1.5 liters, 124/66 for blood pressure. GENERAL: Alert and oriented male in no acute distress. EXTREMITIES: Right lower extremity; scab healed over the incision line anteriorly, di edema noted with some erythema anterior in entire leg. The patient has sensation diminished right lower extremi ty consistent with neuropathy. He will weakly flex and extend his toes. The patient has pain to li ght touch. He has got swollen, compressible compartments. LABORATORY AND X-RAY FINDINGS: White count 9.6, 7.7 and 24.1 H&H and platelets 432. The patient has a CRP of 18. The patient's cultures are still pending. Blood cultures are still pending final resu lts. IMPRESSION: Right lower extremity cellulitis, history of chronic infection, possible osteo with hist ory of intramedullary nailing for right tibial nail, diabetic uncontrolled. ASSESSMENT AND PLAN: The patient has a better healing on x-ray at this point. I feel that removal o f hardware with definitive treatment with antibiotics after deep cultures are taken. I would like th e patient to undergo a period of IV antibiotics to help with swelling and edema in the leg to help wi th our closure. The patient will be elevated. Will plan to do this early next week for hardware rem oval. At that time we will discuss the option of antibiotic spacer, antibiotic nail for his infectio n.
--- NOTE | 2017-08-12 16:04 | NM ---
TRIPLE PHASE BONE SCAN OF THE KNEES 08/12/17 HISTORY: 66-year-old male with cellulitis of the right lower extremity. RADIOPHARMACEUTICAL: 33 millicuries technetium 99m MDP injected intravenously. FINDINGS: Correlation is made with the right knee radiographs of 08/10/17. There is increased blood flow and blood pooling to the right knee compared to the left. These images demonstrate increased uptake in the proximal right tibia. There is increased uptake is also seen in t he patella and the distal right femur. IMPRESSION: Findings are suspicious for right proximal tibial osteomyelitis. The other possibility is an acute/he aling fracture. POS: NAVARRO
[2017-08-12 19:39] LABS: Vancomycin, Trough 17.3 ug/mL
[2017-08-12] MEDS: Vancomycin HCl 1.25 GM in Sodium Chloride 0.9% 250 ML 250 ML IVPB SCH (19:59)
[2017-08-12] MEDS: Milk Of Magnesia 30 ML UDCUP PO PRN (19:59)
[2017-08-12] MEDS: Tamsulosin HCl 0.4 MG CAP PO SCH (19:59)
[2017-08-12] MEDS ORDERED: Diabetic Tussin 200 MG/10 ML UDCUP PO PRN (22:41)
[2017-08-13] MEDS: HYDROcodone/Acetaminophen 5/325 mg Tablet PO PRN ×3 (05:50→20:22)
[2017-08-13] MEDS: Levothyroxine Sodium 25 MCG TAB PO SCH (05:51)
[2017-08-13] MEDS: ALPRAZolam 0.25 MG TAB PO PRN ×2 (05:52→20:23)
[2017-08-13] MEDS: Cefepime 1 GM, Admixture Fee 1 EACH in Sterile Water 10 ML SLOW IVP SCH (05:52)
[2017-08-13] MEDS: Polyethylene Glycol 3350 17 GM Packet PO SCH (08:22)
[2017-08-13] MEDS: Rosuvastatin 20 MG TAB PO SCH (08:22)
[2017-08-13] MEDS: DULoxetine 60 MG CAP PO SCH (08:22)
[2017-08-13] MEDS: Calcium Acetate 667 MG CAP PO SCH ×3 (08:22→16:34)
[2017-08-13] MEDS: Docusate 100 MG CAP PO SCH ×2 (08:23→20:12)
[2017-08-13] MEDS: Heparin 5,000 UNITS/ML VIAL SC SCH ×3 (08:23→20:12)
[2017-08-13] MEDS: Aspirin 81 mg Enteric Coated Tablet PO SCH (08:23)
[2017-08-13] MEDS: Famotidine 20 MG TAB PO SCH (08:23)
[2017-08-13] MEDS: hydrALAZINE 25 MG TAB PO SCH ×4 (08:41→20:19)
[2017-08-13] MEDS: Insulin Detemir 100 UNITS/ML 25 UNITS in Pre-Filled Syringe 1 EACH SC SCH (08:41)
[2017-08-13] MEDS: Nystatin Ointment 15 GM TUBE TOP SCH (08:42)
[2017-08-13] MEDS: Bumetanide 1 MG TAB PO SCH (08:42)
--- NOTE | 2017-08-13 10:25 | PDOC.PN ---
- Subjective Encounter Start Date: 08/13/17 Encounter Start Time: 07:50 Patient seen and examined. No new complaints. No overnight events - Objective Resuscitation Status: Resuscitation Status FULL:Full Resuscitation MAR Reviewed: Yes Vital Signs & Weight: Vital Signs (12 hours) Temp Pulse Resp BP Pulse Ox 08/13/17 08:41 83 08/13/17 04:35 98.2 F 83 18 111/66 94 L 08/13/17 00:00 98.4 F 78 16 128/68 97 Weight Admit Weight 264 lb 8.864 oz Weight 264 lb I&O: 08/12/17 08/13/17 08/14/17 06:59 06:59 06:59 Intake Total 600 770 Output Total 750 Balance 600 20 Result Diagrams: 08/11/17 06:03 08/11/17 06:03 Additional Labs: Accuchecks 08/13/17 08/12/17 08/12/17 06:16 20:07 16:04 POC Glucose 50 L* 133 H 155 H 08/12/17 11:46 POC Glucose 147 H Phys Exam - Physical Examination Constitutional: NAD HEENT: PERRLA, moist MMs, sclera anicteric Neck: no JVD, supple Respiratory: no wheezing, no rales, no rhonchi Cardiovascular: RRR, no significant murmur, no rub Gastrointestinal: soft, non-tender, no distention, positive bowel sounds Musculoskeletal: no edema, pulses present right leg cellulitis Neurological: moves all 4 limbs Psychiatric: normal affect, A&O x 3 Skin: no rash, normal turgor Dx/Plan (1) Cellulitis of right lower extremity Code(s): L03.115 - CELLULITIS OF RIGHT LOWER LIMB Status: Acute (2) Anemia of renal disease Code(s): D63.1 - ANEMIA IN CHRONIC KIDNEY DISEASE Status: Chronic (3) CAD (coronary artery disease) Code(s): I25.10 - ATHSCL HEART DISEASE OF [place] CORONARY ARTERY W/O ANG PCTRS Status: Chronic Qualifiers: (4) DM2 (diabetes mellitus, type 2) Status: Chronic Qualifiers: (5) HTN (hypertension) Code(s): I10 - ESSENTIAL (PRIMARY) HYPERTENSION Status: Chronic (6) Neuropathy Code(s): G62.9 - POLYNEUROPATHY, UNSPECIFIED Status: Chronic (7) Obesity (BMI 30-39.9) Code(s): E66.9 - OBESITY, UNSPECIFIED Status: Chronic - Plan cont current plan of care, continue antibiotics * medication reviewed as below * symptomatic treatment * continue iv antibiotics as per ID as ordered below * add fentanyl for pain control * ortho and ID following Review of Systems - Review of Systems Constitutional: negative: fever, chills, sweats, weakness, malaise, other Eyes: negative: Pain, Vision Change, Conjunctivae Inflammation, Eyelid Inflammation, Redness, Other ENT: negative: Ear Pain, Ear Discharge, Nose Pain, Nose Discharge, Nose Congestion, Mouth Pain, Mouth Swelling, Throat Pain, Throat Swelling, Other Respiratory: negative: Cough, Dry, Shortness of Breath, Hemoptysis, SOB with Excertion, Pleuritic Pain, Sputum, Wheezing Cardiovascular: negative: chest pain, palpitations, orthopnea, paroxysmal nocturnal dyspnea, edema, light headedness, other Gastrointestinal: negative: Nausea, Vomiting, Abdominal Pain, Diarrhea, Constipation, Melena, Hematochezia, Other Genitourinary: negative: Dysuria, Frequency, Incontinence, Hematuria, Retention , Other Musculoskeletal: Back Pain, Leg Pain. negative: Neck Pain, Shoulder Pain, Arm Pain, Hand Pain, Foot Pain, Other - Medications/Allergies Allergies/Adverse Reactions: Allergies Allergy/AdvReac Type Severity Reaction Status Date / Time Sulfa (Sulfonamide Allergy Verified 06/10/17 15:34 Antibiotics) Medications: Current Medications Acetaminophen (Tylenol) 650 mg PO Q4H PRN PRN Reason: Headache/Fever or Pain Last Admin: 08/12/17 09:43 Dose: 650 mg Hydrocodone Bitart/Acetaminophen ([place] 5/325) 1 tab PO Q4H PRN PRN Reason: Moderate Pain (4-6) Last Admin: 08/13/17 05:50 Dose: 1 tab Alprazolam (Xanax) 0.25 mg PO TID PRN PRN Reason: Anxiety Last Admin: 08/13/17 05:52 Dose: 0.25 mg Aspirin (Ecotrin) 81 mg PO DAILY [facility] Last Admin: 08/13/17 08:23 Dose: 81 mg Bumetanide (Bumex) 0.5 mg PO DAILY [facility] Last Admin: 08/13/17 08:42 Dose: 0.5 mg Calcium Acetate (Phoslo) 1,334 mg PO TID-[facility] Last Admin: 08/13/17 08:22 Dose: 1,334 mg Dextrose/Water (Dextrose 50%) 25 gm SLOW IVP PRN PRN PRN Reason: Hypoglycemia Docusate Sodium (Colace) 100 mg PO BID [facility] Last Admin: 08/13/17 08:23 Dose: 100 mg Duloxetine HCl (Cymbalta) 60 mg PO DAILY [facility] Last Admin: 08/13/17 08:22 Dose: 60 mg Famotidine (Pepcid) 20 mg PO DAILY [facility] Last Admin: 08/13/17 08:23 Dose: 20 mg Fentanyl (Duragesic) 25 mcg TD Q3D [facility] Glucagon (Glucagon) 1 mg IM PRN PRN PRN Reason: Hypoglycemia Guaifenesin (Robitussin Sf) 200 mg PO TIDPRN PRN PRN Reason: Cough Last Admin: 08/12/17 22:53 Dose: 200 mg Heparin Sodium (Porcine) (Heparin) 5,000 units SC TID [facility] Last Admin: 08/13/17 08:23 Dose: 5,000 units Hydralazine HCl (Apresoline) 10 mg SLOW IVP Q4H PRN PRN Reason: Systolic BP > 180 Hydralazine HCl (Apresoline) 25 mg PO QID [facility] Last Admin: 08/13/17 08:41 Dose: Not Given Dextrose/Water (D5w) 1,000 mls @ 0 mls/hr IV .Q0M PRN; As Directed PRN Reason: Hypoglycemia Vancomycin HCl 1.25 gm/ Sodium (Chloride) 250 mls @ 166.667 mls/hr IVPB 2000 [facility] Last Admin: 08/12/17 19:59 Dose: 250 mls Cefepime HCl 1 gm/Miscellaneous Medication 1 each/ Sterile Water 10 mls @ 120 mls/hr SLOW IVP 0600 [facility] Last Admin: 08/13/17 05:52 Dose: 10 mls Insulin Detemir 20 units/ (Miscellaneous Medication) 0.2 mls @ 0 mls/hr SC HS [facility] Insulin Detemir 25 units/ (Miscellaneous Medication) 0.25 mls @ 0 mls/hr SC QAM [facility] Last Admin: 08/13/17 08:41 Dose: Not Given Insulin Human Lispro (Humalog) 0 units SC .BEDTIME SLIDING SC PRN PRN Reason: Bedtime Correctional Scale Insulin Human Lispro (Humalog) 0 units SC .MODERATE SLIDING SC PRN PRN Reason: Moderate Correctional Scale Last Admin: 08/12/17 06:26 Dose: 2 unit Levothyroxine Sodium (Synthroid) 25 mcg PO 0600 [facility] Last Admin: 08/13/17 05:51 Dose: 25 mcg Magnesium Hydroxide (Milk Of Magnesium) 30 ml PO DAILYPRN PRN PRN Reason: Constipation Last Admin: 08/12/17 19:59 Dose: 30 ml Miscellaneous Medication (Pharmacy To Dose) 1 each IVPB PRN PRN PRN Reason: Pharmacy to dose Nystatin (Mycostatin Ointment) 0 gm TOP DAILY [facility] Last Admin: 08/13/17 08:42 Dose: 1 applic Ondansetron HCl (Zofran Odt) 4 mg PO Q6H PRN PRN Reason: Nausea/Vomiting Ondansetron HCl (Zofran) 4 mg IVP Q6H PRN PRN Reason: Nausea/Vomiting Polyethylene Glycol (Miralax) 17 gm PO DAILY [facility] Last Admin: 08/13/17 08:22 Dose: 17 gm Rosuvastatin Calcium (Crestor) 20 mg PO QAM [facility] Last Admin: 08/13/17 08:22 Dose: 20 mg Sodium Chloride (Flush - Normal Saline) 10 ml IVF Q12HR [facility] Last Admin: 08/13/17 08:43 Dose: Not Given Sodium Chloride (Flush - Normal Saline) 10 ml IVF PRN PRN PRN Reason: Saline Flush Last Admin: 08/13/17 05:50 Dose: 10 ml Tamsulosin HCl (Flomax) 0.4 mg PO HS [facility] Last Admin: 08/12/17 19:59 Dose: 0.4 mg
[2017-08-13] MEDS: Vancomycin HCl 1.25 GM in Sodium Chloride 0.9% 250 ML 250 ML IVPB SCH (20:10)
[2017-08-13] MEDS: Tamsulosin HCl 0.4 MG CAP PO SCH (20:12)
[2017-08-13] MEDS: HumaLOG 300 UNITS/3 ML VIAL SC PRN (20:25)
[2017-08-13] MEDS: Insulin Detemir 100 UNITS/ML 20 UNITS in Pre-Filled Syringe 1 EACH SC SCH (20:29)
[2017-08-14] MEDS: HYDROcodone/Acetaminophen 5/325 mg Tablet PO PRN ×3 (03:37→21:38)
[2017-08-14] MEDS: ALPRAZolam 0.25 MG TAB PO PRN (03:38)
[2017-08-14] MEDS: Cefepime 1 GM, Admixture Fee 1 EACH in Sterile Water 10 ML SLOW IVP SCH (06:36)
[2017-08-14] MEDS: Levothyroxine Sodium 25 MCG TAB PO SCH (06:37)
[2017-08-14] MEDS: HumaLOG 300 UNITS/3 ML VIAL SC PRN ×4 (07:13→21:47)
[2017-08-14] MEDS: hydrALAZINE 25 MG TAB PO SCH ×4 (09:38→21:44)
[2017-08-14] MEDS: Calcium Acetate 667 MG CAP PO SCH ×3 (09:38→17:10)
[2017-08-14] MEDS: Docusate 100 MG CAP PO SCH ×2 (09:38→21:44)
[2017-08-14] MEDS: Aspirin 81 mg Enteric Coated Tablet PO SCH (09:38)
[2017-08-14] MEDS: Famotidine 20 MG TAB PO SCH (09:38)
[2017-08-14] MEDS: DULoxetine 60 MG CAP PO SCH (09:38)
[2017-08-14] MEDS: Rosuvastatin 20 MG TAB PO SCH (09:38)
[2017-08-14] MEDS: Bumetanide 1 MG TAB PO SCH (09:39)
[2017-08-14] MEDS: Heparin 5,000 UNITS/ML VIAL SC SCH ×3 (09:39→22:10)
[2017-08-14] MEDS: Nystatin Ointment 15 GM TUBE TOP SCH (09:39)
[2017-08-14] MEDS: Insulin Detemir 100 UNITS/ML 25 UNITS in Pre-Filled Syringe 1 EACH SC SCH (09:39)
[2017-08-14] MEDS: Polyethylene Glycol 3350 17 GM Packet PO SCH (09:39)
--- NOTE | 2017-08-14 13:46 | PDOC.PN ---
- Subjective Encounter Start Date: 08/14/17 Encounter Start Time: 13:44 Patient seen and examined, no new issues, all questions answered. - Objective Resuscitation Status: Resuscitation Status FULL:Full Resuscitation Vital Signs & Weight: Vital Signs (12 hours) Temp Pulse Resp BP Pulse Ox 08/14/17 12:34 98 F 87 20 136/72 100 08/14/17 09:38 84 08/14/17 09:05 97.4 F L 84 16 114/69 99 08/14/17 08:00 98.2 F 84 16 08/14/17 04:00 98.0 F 83 19 132/70 99 Weight Admit Weight 264 lb 8.864 oz Weight 264 lb I&O: 08/13/17 08/14/17 08/15/17 06:59 06:59 06:59 Intake Total 770 650 Output Total 750 2300 Balance 20 -1650 Result Diagrams: 08/11/17 06:03 08/11/17 06:03 Additional Labs: Accuchecks 08/14/17 08/14/17 08/13/17 11:17 05:46 19:40 POC Glucose 377 H 376 H 377 H Phys Exam - Physical Examination Constitutional: NAD HEENT: PERRLA, moist MMs Neck: no nodes, no JVD Respiratory: no wheezing, no rales Cardiovascular: RRR, no significant murmur Gastrointestinal: soft, non-tender Musculoskeletal: pulses present RLE in bandages Neurological: non-focal, normal sensation Dx/Plan (1) Cellulitis of right lower extremity Code(s): L03.115 - CELLULITIS OF RIGHT LOWER LIMB Status: Acute (2) Hypoglycemia associated with type 2 diabetes mellitus Code(s): E11.649 - TYPE 2 DIABETES MELLITUS WITH HYPOGLYCEMIA WITHOUT COMA Status: Acute (3) Osteomyelitis of right tibia Code(s): M86.9 - OSTEOMYELITIS, UNSPECIFIED Status: Acute (4) Anemia of renal disease Code(s): D63.1 - ANEMIA IN CHRONIC KIDNEY DISEASE Status: Chronic (5) HTN (hypertension) Code(s): I10 - ESSENTIAL (PRIMARY) HYPERTENSION Status: Chronic (6) Neuropathy Code(s): G62.9 - POLYNEUROPATHY, UNSPECIFIED Status: Chronic (7) Obesity (BMI 30-39.9) Code(s): E66.9 - OBESITY, UNSPECIFIED Status: Chronic - Plan * cont w/ current plan of care * possible hardware removal early next week * no other changes
[2017-08-14] MEDS: Vancomycin HCl 1.25 GM in Sodium Chloride 0.9% 250 ML 250 ML IVPB SCH (21:43)
[2017-08-14] MEDS: Tamsulosin HCl 0.4 MG CAP PO SCH (21:44)
[2017-08-14] MEDS: Insulin Detemir 100 UNITS/ML 20 UNITS in Pre-Filled Syringe 1 EACH SC SCH (21:45)
[2017-08-15] MEDS: HYDROcodone/Acetaminophen 5/325 mg Tablet PO PRN ×4 (03:24→23:40)
[2017-08-15] MEDS: ALPRAZolam 0.25 MG TAB PO PRN ×2 (03:25→21:31)
[2017-08-15] MEDS: Cefepime 1 GM, Admixture Fee 1 EACH in Sterile Water 10 ML SLOW IVP SCH (05:42)
[2017-08-15] MEDS: Levothyroxine Sodium 25 MCG TAB PO SCH (05:42)
[2017-08-15] MEDS: HumaLOG 300 UNITS/3 ML VIAL SC PRN ×4 (05:52→21:33)
[2017-08-15] MEDS: Calcium Acetate 667 MG CAP PO SCH ×3 (09:08→16:23)
[2017-08-15] MEDS: Famotidine 20 MG TAB PO SCH (09:09)
[2017-08-15] MEDS: Bumetanide 1 MG TAB PO SCH (09:10)
[2017-08-15] MEDS: Aspirin 81 mg Enteric Coated Tablet PO SCH (09:10)
[2017-08-15] MEDS: DULoxetine 60 MG CAP PO SCH (09:11)
[2017-08-15] MEDS: Docusate 100 MG CAP PO SCH ×2 (09:11→21:32)
[2017-08-15] MEDS: Heparin 5,000 UNITS/ML VIAL SC SCH ×3 (09:11→21:31)
[2017-08-15] MEDS: Polyethylene Glycol 3350 17 GM Packet PO SCH (09:12)
[2017-08-15] MEDS: hydrALAZINE 25 MG TAB PO SCH ×4 (09:12→21:31)
[2017-08-15] MEDS: Rosuvastatin 20 MG TAB PO SCH (09:12)
[2017-08-15] MEDS: Insulin Detemir 100 UNITS/ML 25 UNITS in Pre-Filled Syringe 1 EACH SC SCH ×2 (09:41→21:32)
[2017-08-15] MEDS: Nystatin Ointment 15 GM TUBE TOP SCH (09:57)
[2017-08-15 10:18] LABS: Hemoglobin 9.3 g/dL (14.0-18.0); Mean Corpuscular HGB CONC 32.2 g/dL (32.0-36.0); Mean Corpuscular Hemoglobin 28.7 pg (27.0-31.0); Mean Corpuscular Volume 89.2 fl (80.0-94.0); Mean Platelet Volume 6.8 fL (7.4-10.4); Platelet Count 532 thou/uL (130-400); RBC Distribution Width 15.2 % (11.5-14.5); Red Blood Cell (RBC) Count 3.25 mill/uL (4.70-6.10); White Blood Cell (WBC) Count 9.8 thou/uL (4.8-10.8)
[2017-08-15 10:31] LABS: Anion Gap 15 mmol/L (10-20); BUN (Urea Nitrogen) 52 mg/dL (8.4-25.7); Calc. Creatinine Clearance 46 mL/min (70-130); Calcium 9.7 mg/dL (7.8-10.44); Carbon Dioxide 24 mmol/L (23-31); Chloride 101 mmol/L (98-107); Estimated GFR-MDRD 24; Glucose 443 mg/dL (80-115); Sodium 135 mmol/L (136-145)
--- NOTE | 2017-08-15 13:29 | PDOC.PN ---
- Subjective Encounter Start Date: 08/15/17 Encounter Start Time: 13:27 Patient seen and examined, no new issues or complaints - Objective Resuscitation Status: Resuscitation Status FULL:Full Resuscitation Vital Signs & Weight: Vital Signs (12 hours) Temp Pulse Resp BP BP Pulse Ox 08/15/17 12:07 90 143/69 H 08/15/17 12:00 97.9 F 89 21 H 143/69 H 93 L 08/15/17 09:12 85 128/78 08/15/17 08:00 97.8 F 85 21 H 128/70 97 08/15/17 04:38 97.9 F 79 16 129/67 99 Weight Admit Weight 264 lb 8.864 oz Weight 264 lb I&O: 08/14/17 08/15/17 08/16/17 06:59 06:59 06:59 Intake Total 650 480 Output Total 2300 1975 Balance -3465 -5905 Result Diagrams: 08/15/17 09:54 08/15/17 09:54 Additional Labs: Accuchecks 08/15/17 08/15/17 08/15/17 12:12 12:06 05:52 POC Glucose 461 H 438 H 399 H 08/14/17 08/14/17 21:12 16:58 POC Glucose 439 H 419 H Phys Exam - Physical Examination Constitutional: NAD HEENT: PERRLA, moist MMs Neck: no nodes, no JVD Respiratory: no wheezing, no rales Cardiovascular: RRR, no significant murmur Gastrointestinal: soft, non-tender, no distention Musculoskeletal: pulses present, edema present RLE bandaged Neurological: non-focal, normal sensation Psychiatric: normal affect, A&O x 3 Dx/Plan (1) Cellulitis of right lower extremity Code(s): L03.115 - CELLULITIS OF RIGHT LOWER LIMB Status: Acute (2) Hypoglycemia associated with type 2 diabetes mellitus Code(s): E11.649 - TYPE 2 DIABETES MELLITUS WITH HYPOGLYCEMIA WITHOUT COMA Status: Acute (3) Osteomyelitis of right tibia Code(s): M86.9 - OSTEOMYELITIS, UNSPECIFIED Status: Acute (4) Anemia of renal disease Code(s): D63.1 - ANEMIA IN CHRONIC KIDNEY DISEASE Status: Chronic (5) HTN (hypertension) Code(s): I10 - ESSENTIAL (PRIMARY) HYPERTENSION Status: Chronic (6) Neuropathy Code(s): G62.9 - POLYNEUROPATHY, UNSPECIFIED Status: Chronic (7) Obesity (BMI 30-39.9) Code(s): E66.9 - OBESITY, UNSPECIFIED Status: Chronic - Plan * pending hardware removal * blood sugars elevated, will increase levemir to 25 units BID for now * will also increase sliding scale to high dose * continue abx * no other changes in plan for now * case and plan d/w patient at length, he understands and agrees with this plan
[2017-08-15 19:41] LABS: Vancomycin, Trough 28.3 ug/mL
[2017-08-15] MEDS ORDERED: Vancomycin HCl 1.25 GM in Sodium Chloride 0.9% 250 ML 250 ML IVPB SCH (20:00)
[2017-08-15] MEDS: Tamsulosin HCl 0.4 MG CAP PO SCH (21:31)
[2017-08-16] MEDS: HYDROcodone/Acetaminophen 5/325 mg Tablet PO PRN ×3 (04:19→19:40)
[2017-08-16] MEDS: Cefepime 1 GM, Admixture Fee 1 EACH in Sterile Water 10 ML SLOW IVP SCH (06:23)
[2017-08-16] MEDS: HumaLOG 300 UNITS/3 ML VIAL SC PRN ×3 (06:23→20:32)
[2017-08-16] MEDS: Levothyroxine Sodium 25 MCG TAB PO SCH (06:23)
[2017-08-16] MEDS ORDERED: Chloraseptic Spray 180 ml Bottle PO PRN (08:11)
[2017-08-16] MEDS ORDERED: Sodium Chloride 0.65% Nasal 44 ML BOT EA NARE PRN (08:11)
[2017-08-16] MEDS ORDERED: Mag-Al 1200 mg/1200 mg/30 ML UDCUP PO PRN (08:11)
[2017-08-16] MEDS ORDERED: Loratadine 10 MG TAB PO PRN (08:11)
[2017-08-16] MEDS ORDERED: Artificial Tear Sol 15 ML BOT EA EYE PRN (08:11)
[2017-08-16] MEDS ORDERED: Eucerin (Mineral Oil/Petrolatum,White) 30 gm Jar TOP PRN (08:11)
[2017-08-16] MEDS: Rosuvastatin 20 MG TAB PO SCH (09:27)
[2017-08-16] MEDS: hydrALAZINE 25 MG TAB PO SCH ×4 (09:27→20:30)
[2017-08-16] MEDS: Calcium Acetate 667 MG CAP PO SCH ×3 (09:27→17:51)
[2017-08-16] MEDS: Docusate 100 MG CAP PO SCH ×2 (09:27→20:31)
[2017-08-16] MEDS: Aspirin 81 mg Enteric Coated Tablet PO SCH (09:27)
[2017-08-16] MEDS: DULoxetine 60 MG CAP PO SCH (09:28)
[2017-08-16] MEDS: Famotidine 20 MG TAB PO SCH (09:28)
[2017-08-16] MEDS: Nystatin Ointment 15 GM TUBE TOP SCH (09:28)
[2017-08-16] MEDS: Polyethylene Glycol 3350 17 GM Packet PO SCH (09:28)
[2017-08-16] MEDS: Insulin Detemir 100 UNITS/ML 25 UNITS in Pre-Filled Syringe 1 EACH SC SCH ×2 (09:28→20:32)
[2017-08-16] MEDS: Bumetanide 1 MG TAB PO SCH (09:52)
[2017-08-16] MEDS: Heparin 5,000 UNITS/ML VIAL SC SCH ×3 (09:52→22:59)
--- NOTE | 2017-08-16 12:09 | PDOC.PN ---
- Subjective Encounter Start Date: 08/16/17 Encounter Start Time: 08:15 -: old records requested/rev Patient seen and examined. No new complaints. No overnight events - Objective Resuscitation Status: Resuscitation Status FULL:Full Resuscitation MAR Reviewed: Yes Vital Signs & Weight: Vital Signs (12 hours) Temp Pulse Resp BP Pulse Ox 08/16/17 09:27 86 08/16/17 08:00 97.6 F 86 18 131/69 97 08/16/17 04:00 98.3 F 83 16 135/72 95 Weight Admit Weight 264 lb 8.864 oz Weight 264 lb I&O: 08/15/17 08/16/17 08/17/17 06:59 06:59 06:59 Intake Total 480 1600 Output Total 1975 1999 Balance -1495 -400 Result Diagrams: 08/15/17 09:54 08/15/17 09:54 Additional Labs: Accuchecks 08/16/17 08/15/17 08/15/17 05:34 20:11 12:12 POC Glucose 216 H 315 H 461 H 08/15/17 12:06 POC Glucose 438 H Phys Exam - Physical Examination Constitutional: NAD HEENT: PERRLA, moist MMs, sclera anicteric Neck: no JVD, supple Respiratory: no wheezing, no rales, no rhonchi Cardiovascular: RRR, no significant murmur, no rub Gastrointestinal: soft, non-tender, no distention, positive bowel sounds Musculoskeletal: no edema, pulses present Neurological: non-focal, normal sensation, moves all 4 limbs Lymphatic: no nodes Psychiatric: normal affect, A&O x 3 Skin: no rash, normal turgor Dx/Plan (1) Cellulitis of right lower extremity Code(s): L03.115 - CELLULITIS OF RIGHT LOWER LIMB Status: Acute (2) Anemia of renal disease Code(s): D63.1 - ANEMIA IN CHRONIC KIDNEY DISEASE Status: Chronic (3) CAD (coronary artery disease) Code(s): I25.10 - ATHSCL HEART DISEASE OF [place] CORONARY ARTERY W/O ANG PCTRS Status: Chronic Qualifiers: (4) DM2 (diabetes mellitus, type 2) Status: Chronic Qualifiers: (5) HTN (hypertension) Code(s): I10 - ESSENTIAL (PRIMARY) HYPERTENSION Status: Chronic (6) Neuropathy Code(s): G62.9 - POLYNEUROPATHY, UNSPECIFIED Status: Chronic (7) Obesity (BMI 30-39.9) Code(s): E66.9 - OBESITY, UNSPECIFIED Status: Chronic - Plan cont current plan of care, continue antibiotics * tomorrow plan for hardware removal * continue iv antibiotics as per ID as ordered below * medication reviewed as below * symptomatic treatment. Review of Systems - Review of Systems ENT: negative: Ear Pain, Ear Discharge, Nose Pain, Nose Discharge, Nose Congestion, Mouth Pain, Mouth Swelling, Throat Pain, Throat Swelling, Other Respiratory: negative: Cough, Dry, Shortness of Breath, Hemoptysis, SOB with Excertion, Pleuritic Pain, Sputum, Wheezing Cardiovascular: negative: chest pain, palpitations, orthopnea, paroxysmal nocturnal dyspnea, edema, light headedness, other Gastrointestinal: negative: Nausea, Vomiting, Abdominal Pain, Diarrhea, Constipation, Melena, Hematochezia, Other Genitourinary: negative: Dysuria, Frequency, Incontinence, Hematuria, Retention , Other Musculoskeletal: negative: Neck Pain, Shoulder Pain, Arm Pain, Back Pain, Hand Pain, Leg Pain, Foot Pain, Other Skin: negative: Rash, Lesions, Rahat, Bruising, Other - Medications/Allergies Allergies/Adverse Reactions: Allergies Allergy/AdvReac Type Severity Reaction Status Date / Time Sulfa (Sulfonamide Allergy Verified 06/10/17 15:34 Antibiotics) Medications: Current Medications Acetaminophen (Tylenol) 650 mg PO Q4H PRN PRN Reason: Headache/Fever or Pain Last Admin: 08/12/17 09:43 Dose: 650 mg Hydrocodone Bitart/Acetaminophen ([place] 5/325) 1 tab PO Q4H PRN PRN Reason: Moderate Pain (4-6) Last Admin: 08/16/17 04:19 Dose: 1 tab Al Hydroxide/Mg Hydroxide (Maalox) 15 ml PO Q4H PRN PRN Reason: Heartburn or Indigestion Alprazolam (Xanax) 0.25 mg PO TID PRN PRN Reason: Anxiety Last Admin: 08/15/17 21:31 Dose: 0.25 mg Artificial Tears (Tears Renewed 15ml Bottle) 0 drop EA EYE PRN PRN PRN Reason: Dry Eyes Aspirin (Ecotrin) 81 mg PO DAILY [facility] Last Admin: 08/16/17 09:27 Dose: 81 mg Bumetanide (Bumex) 0.5 mg PO DAILY [facility] Last Admin: 08/16/17 09:52 Dose: 0.5 mg Calcium Acetate (Phoslo) 1,334 mg PO TID-[facility] Last Admin: 08/16/17 09:27 Dose: 1,334 mg Dextrose/Water (Dextrose 50%) 25 gm SLOW IVP PRN PRN PRN Reason: Hypoglycemia Docusate Sodium (Colace) 100 mg PO BID [facility] Last Admin: 08/16/17 09:27 Dose: 100 mg Duloxetine HCl (Cymbalta) 60 mg PO DAILY [facility] Last Admin: 08/16/17 09:28 Dose: 60 mg Famotidine (Pepcid) 20 mg PO DAILY [facility] Last Admin: 08/16/17 09:28 Dose: 20 mg Fentanyl (Duragesic) 25 mcg TD Q3D [facility] Last Admin: 08/13/17 11:02 Dose: 25 mcg Glucagon (Glucagon) 1 mg IM PRN PRN PRN Reason: Hypoglycemia Guaifenesin (Robitussin Sf) 200 mg PO TIDPRN PRN PRN Reason: Cough Last Admin: 08/12/17 22:53 Dose: 200 mg Heparin Sodium (Porcine) (Heparin) 5,000 units SC TID [facility] Last Admin: 08/16/17 09:52 Dose: 5,000 units Hydralazine HCl (Apresoline) 10 mg SLOW IVP Q4H PRN PRN Reason: Systolic BP > 180 Hydralazine HCl (Apresoline) 25 mg PO QID [facility] Last Admin: 08/16/17 09:27 Dose: 25 mg Dextrose/Water (D5w) 1,000 mls @ 0 mls/hr IV .Q0M PRN; As Directed PRN Reason: Hypoglycemia Cefepime HCl 1 gm/Miscellaneous Medication 1 each/ Sterile Water 10 mls @ 120 mls/hr SLOW IVP 0600 [facility] Last Admin: 08/16/17 06:23 Dose: 10 mls Insulin Detemir 25 units/ (Miscellaneous Medication) 0.25 mls @ 0 mls/hr SC QAM [facility] Last Admin: 08/16/17 09:28 Dose: 0.25 mls Insulin Detemir 25 units/ (Miscellaneous Medication) 0.25 mls @ 0 mls/hr SC HS [facility] Last Admin: 08/15/17 21:32 Dose: 0.25 mls Vancomycin HCl 1 gm/ Device 200 mls @ 200 mls/hr IVPB 2100 [facility] Insulin Human Lispro (Humalog) 0 units SC .BEDTIME SLIDING SC PRN PRN Reason: Bedtime Correctional Scale Last Admin: 08/15/17 21:33 Dose: 4 unit Insulin Human Lispro (Humalog) 0 units SC .AGGRESSIVE SLIDING PRN; Protocol PRN Reason: AGGRESSIVE SLIDING SCALE Last Admin: 08/16/17 06:23 Dose: 6 unit Levothyroxine Sodium (Synthroid) 25 mcg PO 0600 [facility] Last Admin: 08/16/17 06:23 Dose: 25 mcg Loratadine (Claritin) 10 mg PO DAILYPRN PRN PRN Reason: Sinus Symptoms Magnesium Hydroxide (Milk Of Magnesium) 30 ml PO DAILYPRN PRN PRN Reason: Constipation Last Admin: 08/12/17 19:59 Dose: 30 ml Mineral Oil/White Petrolatum (Eucerin Cream) 0 gm TOP BIDPRN PRN PRN Reason: Dry Skin Miscellaneous Medication (Pharmacy To Dose) 1 each IVPB PRN PRN PRN Reason: Pharmacy to dose Nystatin (Mycostatin Ointment) 0 gm TOP DAILY [facility] Last Admin: 08/16/17 09:28 Dose: 1 applic Ondansetron HCl (Zofran Odt) 4 mg PO Q6H PRN PRN Reason: Nausea/Vomiting Ondansetron HCl (Zofran) 4 mg IVP Q6H PRN PRN Reason: Nausea/Vomiting Phenol (Chloraseptic [place] 180 Ml Bot) 0 ml PO PRN PRN PRN Reason: Sore Throat Polyethylene Glycol (Miralax) 17 gm PO DAILY [facility] Last Admin: 08/16/17 09:28 Dose: 17 gm Rosuvastatin Calcium (Crestor) 20 mg PO QAM [facility] Last Admin: 08/16/17 09:27 Dose: 20 mg Sodium Chloride (Flush - Normal Saline) 10 ml IVF Q12HR [facility] Last Admin: 08/16/17 09:52 Dose: 10 ml Sodium Chloride (Flush - Normal Saline) 10 ml IVF PRN PRN PRN Reason: Saline Flush Last Admin: 08/13/17 05:50 Dose: 10 ml Sodium Chloride ([place] Nasal [place] 0.65%) 0 ml EA NARE QIDPRN PRN PRN Reason: Nasal Congestion Tamsulosin HCl (Flomax) 0.4 mg PO HS [facility] Last Admin: 08/15/17 21:31 Dose: 0.4 mg
--- NOTE | 2017-08-16 15:31 | PRG ---
HISTORY OF PRESENT ILLNESS: Mr. Rivera is a 66-year-old male who has a long history of treatment to include hardware placement followed by hardware removal and patient has history of diabetes. The patient presents with right leg cellulitis. The patient was also been treated at [facility] prior to this. The patient has done a skin grafting by Dr. Ordoñez and allograft from Dr. Ordoñez for draining sinus. The patient now presents with minimal pain with cellulitis. The patient has had hardware in place, but has showed signs of healing. I have planned to try to wait as long as possible to remove it. Given this, the patient is being planned for a hardware removal. PHYSICAL EXAMINATION: VITAL SIGNS: Afebrile. Stable. GENERAL: Alert and oriented, in no acute distress. EXTREMITIES: eschar anterior knee, he has got unchanged sensory changes of the right lower extremity. The patient has minimal range of motion of his knee and tibia. The patient has no gross instability of his proximal tibia fracture. LABORATORY DATA AND IMAGING: Radiographs of his knee shows a woven bone callus formation healing with previous ryanne in place and no signs of failure. The patient's labs had elevated CRP, normal white blood cell count. The patient had a bone scan, which concerned for possible acute healing of the fracture versus osteomyelitis. I did not see any obvious sequestrum or involucrum. ASSESSMENT AND PLAN: The patient will be taken to the OR tomorrow to have his hardware removed and reaming the canal. I have placed antibiotic spacer versus removing it, allowing the wound heal secondary intent with long-term IV antibiotics. Take cultures at that time with the bone biopsy. Patient understands the risks and benefits and elected to proceed. OMI
[2017-08-16] MEDS: ALPRAZolam 0.25 MG TAB PO PRN (15:45)
[2017-08-16 19:08] LABS: Vancomycin, Random 22.8 ug/mL (See Comment)
[2017-08-16] MEDS: Tamsulosin HCl 0.4 MG CAP PO SCH (20:31)
[2017-08-16] MEDS ORDERED: Vancomycin HCl 1 GM in Premix Bag 1 BAG IVPB SCH (21:00)
[2017-08-17] MEDS: HYDROcodone/Acetaminophen 5/325 mg Tablet PO PRN ×3 (00:06→19:45)
[2017-08-17] MEDS: ALPRAZolam 0.25 MG TAB PO PRN ×2 (00:49→19:46)
[2017-08-17] MEDS: Cefepime 1 GM, Admixture Fee 1 EACH in Sterile Water 10 ML SLOW IVP SCH (06:10)
[2017-08-17] MEDS: Levothyroxine Sodium 25 MCG TAB PO SCH (06:11)
[2017-08-17 06:44] LABS: #Eosinphils 0.2 thou/uL (0.0-0.7); #Lymphocytes 1.9 thou/uL (1.20-3.40); #Monocytes 0.5 thou/uL (0.11-0.59); #Neutrophils 6.3 thou/uL (1.40-6.50); %Basophils 0.3 % (0.0-1.0); %Eosinophils 2.3 % (0.0-10.0); %Monocytes 5.9 % (0.0-10.0); %Neutrophils 70.5 % (42.0-75.0); Hemoglobin 8.9 g/dL (14.0-18.0); Mean Corpuscular HGB CONC 31.7 g/dL (32.0-36.0); Mean Corpuscular Hemoglobin 27.9 pg (27.0-31.0); Mean Corpuscular Volume 88.1 fl (80.0-94.0); Mean Platelet Volume 6.6 fL (7.4-10.4); Platelet Count 498 thou/uL (130-400); RBC Distribution Width 15.4 % (11.5-14.5)
[2017-08-17 07:03] LABS: ALT (SGPT) 8 U/L (8-55); AST (SGOT) 10 U/L (5-34); Albumin 2.5 g/dL (3.4-4.8); Alkaline Phosphatase 110 U/L (40-150); Anion Gap 14 mmol/L (10-20); BUN (Urea Nitrogen) 42 mg/dL (8.4-25.7); Bilirubin, Total 0.3 mg/dL (0.2-1.2); CRP (Inflammatory) 4.55 mg/dL (= or < 0.5); Calc. Creatinine Clearance 51 mL/min (70-130); Calcium 9.3 mg/dL (7.8-10.44); Carbon Dioxide 24 mmol/L (23-31); Chloride 100 mmol/L (98-107); Estimated GFR-MDRD 27; Globulin 4.4 g/dL (2.4-3.5); Glucose 291 mg/dL (80-115); Potassium 4.4 mmol/L (3.5-5.1); Protein, Total 6.9 g/dL (5.8-8.1); Sodium 134 mmol/L (136-145)
[2017-08-17] MEDS ORDERED: CEFAZOLIN/Water 2 GM/20 ML SYRINGE ONE (08:41)
[2017-08-17] MEDS ORDERED: Tobramycin Sulfate 1.2 GM VIAL ONE ×2 (08:54→11:07)
[2017-08-17] MEDS: Calcium Acetate 667 MG CAP PO SCH ×4 (08:57→17:24)
[2017-08-17] MEDS: hydrALAZINE 25 MG TAB PO SCH ×4 (08:58→21:19)
[2017-08-17] MEDS: Docusate 100 MG CAP PO SCH ×2 (08:58→21:18)
[2017-08-17] MEDS: Heparin 5,000 UNITS/ML VIAL SC SCH ×3 (08:58→21:18)
--- NOTE | 2017-08-17 10:31 | PDOC.PN ---
- Subjective Encounter Start Date: 08/17/17 Encounter Start Time: 08:20 Patient seen and examined. No new complaints. No overnight events - Objective Resuscitation Status: Resuscitation Status FULL:Full Resuscitation MAR Reviewed: Yes Vital Signs & Weight: Vital Signs (12 hours) Temp Pulse Resp BP Pulse Ox 08/17/17 08:58 82 08/17/17 07:45 97.8 F 79 16 99 08/17/17 07:40 97.8 F 79 16 138/64 99 08/17/17 03:43 98.4 F 82 16 99 Weight Admit Weight 264 lb 8.864 oz Weight 264 lb I&O: 08/16/17 08/17/17 08/18/17 06:59 06:59 06:59 Intake Total 1600 Output Total 1999 700 Balance -400 -700 Result Diagrams: 08/17/17 06:31 08/17/17 06:31 Additional Labs: Accuchecks 08/17/17 08/16/17 08/16/17 05:21 19:32 16:11 POC Glucose 287 H 503 H 375 H 08/16/17 12:07 POC Glucose 300 H Phys Exam - Physical Examination Constitutional: NAD HEENT: PERRLA, moist MMs, sclera anicteric Neck: no JVD, supple Respiratory: no wheezing, no rales, no rhonchi Cardiovascular: RRR, no significant murmur, no rub Gastrointestinal: soft, non-tender, no distention, positive bowel sounds Musculoskeletal: no edema, pulses present right leg cellulitis improving Neurological: non-focal, normal sensation, moves all 4 limbs Psychiatric: normal affect, A&O x 3 Skin: no rash, normal turgor Dx/Plan (1) Cellulitis of right lower extremity Code(s): L03.115 - CELLULITIS OF RIGHT LOWER LIMB Status: Acute (2) Anemia of renal disease Code(s): D63.1 - ANEMIA IN CHRONIC KIDNEY DISEASE Status: Chronic (3) CAD (coronary artery disease) Code(s): I25.10 - ATHSCL HEART DISEASE OF [place] CORONARY ARTERY W/O ANG PCTRS Status: Chronic Qualifiers: (4) DM2 (diabetes mellitus, type 2) Status: Chronic Qualifiers: (5) HTN (hypertension) Code(s): I10 - ESSENTIAL (PRIMARY) HYPERTENSION Status: Chronic (6) Neuropathy Code(s): G62.9 - POLYNEUROPATHY, UNSPECIFIED Status: Chronic (7) Obesity (BMI 30-39.9) Code(s): E66.9 - OBESITY, UNSPECIFIED Status: Chronic (8) Hypoglycemia associated with type 2 diabetes mellitus Code(s): E11.649 - TYPE 2 DIABETES MELLITUS WITH HYPOGLYCEMIA WITHOUT COMA Status: Acute (9) Osteomyelitis of right tibia Code(s): M86.9 - OSTEOMYELITIS, UNSPECIFIED Status: Acute - Plan cont current plan of care, plan discussed w/ family * his blood sugar is very labile, will monitor today and if high accuchek will increase long acting insulin * today plan for hardware removal * medication reviewed as below * symptomatic treatment * continue iv antibiotics as per dr martinez * pain controlled * post op care as per ortho. Review of Systems - Review of Systems Eyes: negative: Pain, Vision Change, Conjunctivae Inflammation, Eyelid Inflammation, Redness, Other ENT: negative: Ear Pain, Ear Discharge, Nose Pain, Nose Discharge, Nose Congestion, Mouth Pain, Mouth Swelling, Throat Pain, Throat Swelling, Other Respiratory: negative: Cough, Dry, Shortness of Breath, Hemoptysis, SOB with Excertion, Pleuritic Pain, Sputum, Wheezing Cardiovascular: negative: chest pain, palpitations, orthopnea, paroxysmal nocturnal dyspnea, edema, light headedness, other Gastrointestinal: negative: Nausea, Vomiting, Abdominal Pain, Diarrhea, Constipation, Melena, Hematochezia, Other Genitourinary: negative: Dysuria, Frequency, Incontinence, Hematuria, Retention , Other Musculoskeletal: negative: Neck Pain, Shoulder Pain, Arm Pain, Back Pain, Hand Pain, Leg Pain, Foot Pain, Other Skin: negative: Rash, Lesions, Rahat, Bruising, Other - Medications/Allergies Allergies/Adverse Reactions: Allergies Allergy/AdvReac Type Severity Reaction Status Date / Time Sulfa (Sulfonamide Allergy Verified 06/10/17 15:34 Antibiotics) Medications: Current Medications Acetaminophen (Tylenol) 650 mg PO Q4H PRN PRN Reason: Headache/Fever or Pain Last Admin: 08/12/17 09:43 Dose: 650 mg Hydrocodone Bitart/Acetaminophen ([place] 5/325) 1 tab PO Q4H PRN PRN Reason: Moderate Pain (4-6) Last Admin: 08/17/17 00:06 Dose: 1 tab Al Hydroxide/Mg Hydroxide (Maalox) 15 ml PO Q4H PRN PRN Reason: Heartburn or Indigestion Alprazolam (Xanax) 0.25 mg PO TID PRN PRN Reason: Anxiety Last Admin: 08/17/17 00:49 Dose: 0.25 mg Artificial Tears (Tears Renewed 15ml Bottle) 0 drop EA EYE PRN PRN PRN Reason: Dry Eyes Aspirin (Ecotrin) 81 mg PO DAILY [facility] Last Admin: 08/16/17 09:27 Dose: 81 mg Bumetanide (Bumex) 0.5 mg PO DAILY [facility] Last Admin: 08/16/17 09:52 Dose: 0.5 mg Calcium Acetate (Phoslo) 1,334 mg PO TID-[facility] Last Admin: 08/17/17 08:57 Dose: Not Given Dextrose/Water (Dextrose 50%) 25 gm SLOW IVP PRN PRN PRN Reason: Hypoglycemia Docusate Sodium (Colace) 100 mg PO BID [facility] Last Admin: 08/17/17 08:58 Dose: Not Given Duloxetine HCl (Cymbalta) 60 mg PO DAILY [facility] Last Admin: 08/16/17 09:28 Dose: 60 mg Famotidine (Pepcid) 20 mg PO DAILY [facility] Last Admin: 08/16/17 09:28 Dose: 20 mg Fentanyl (Duragesic) 25 mcg TD Q3D [facility] Last Admin: 08/16/17 15:43 Dose: 25 mcg Glucagon (Glucagon) 1 mg IM PRN PRN PRN Reason: Hypoglycemia Guaifenesin (Robitussin Sf) 200 mg PO TIDPRN PRN PRN Reason: Cough Last Admin: 08/12/17 22:53 Dose: 200 mg Heparin Sodium (Porcine) (Heparin) 5,000 units SC TID [facility] Last Admin: 08/17/17 08:58 Dose: Not Given Hydralazine HCl (Apresoline) 10 mg SLOW IVP Q4H PRN PRN Reason: Systolic BP > 180 Hydralazine HCl (Apresoline) 25 mg PO QID [facility] Last Admin: 08/17/17 08:58 Dose: Not Given Dextrose/Water (D5w) 1,000 mls @ 0 mls/hr IV .Q0M PRN; As Directed PRN Reason: Hypoglycemia Cefepime HCl 1 gm/Miscellaneous Medication 1 each/ Sterile Water 10 mls @ 120 mls/hr SLOW IVP 0600 [facility] Last Admin: 08/17/17 06:10 Dose: 10 mls Insulin Detemir 25 units/ (Miscellaneous Medication) 0.25 mls @ 0 mls/hr SC QAM [facility] Last Admin: 08/16/17 09:28 Dose: 0.25 mls Insulin Detemir 25 units/ (Miscellaneous Medication) 0.25 mls @ 0 mls/hr SC HS [facility] Last Admin: 08/16/17 20:32 Dose: 0.25 mls Vancomycin HCl 1 gm/ Device 200 mls @ 200 mls/hr IVPB 2100 [facility] Insulin Human Lispro (Humalog) 0 units SC .BEDTIME SLIDING SC PRN PRN Reason: Bedtime Correctional Scale Last Admin: 08/16/17 20:32 Dose: 5 unit Insulin Human Lispro (Humalog) 0 units SC .AGGRESSIVE SLIDING PRN; Protocol PRN Reason: AGGRESSIVE SLIDING SCALE Last Admin: 08/16/17 18:05 Dose: 13 unit Levothyroxine Sodium (Synthroid) 25 mcg PO 0600 [facility] Last Admin: 08/17/17 06:11 Dose: 25 mcg Loratadine (Claritin) 10 mg PO DAILYPRN PRN PRN Reason: Sinus Symptoms Magnesium Hydroxide (Milk Of Magnesium) 30 ml PO DAILYPRN PRN PRN Reason: Constipation Last Admin: 08/12/17 19:59 Dose: 30 ml Mineral Oil/White Petrolatum (Eucerin Cream) 0 gm TOP BIDPRN PRN PRN Reason: Dry Skin Miscellaneous Medication (Pharmacy To Dose) 1 each IVPB PRN PRN PRN Reason: Pharmacy to dose Nystatin (Mycostatin Ointment) 0 gm TOP DAILY [facility] Last Admin: 08/16/17 09:28 Dose: 1 applic Ondansetron HCl (Zofran Odt) 4 mg PO Q6H PRN PRN Reason: Nausea/Vomiting Ondansetron HCl (Zofran) 4 mg IVP Q6H PRN PRN Reason: Nausea/Vomiting Phenol (Chloraseptic [place] 180 Ml Bot) 0 ml PO PRN PRN PRN Reason: Sore Throat Polyethylene Glycol (Miralax) 17 gm PO DAILY [facility] Last Admin: 08/16/17 09:28 Dose: 17 gm Rosuvastatin Calcium (Crestor) 20 mg PO QAM [facility] Last Admin: 08/16/17 09:27 Dose: 20 mg Sodium Chloride (Flush - Normal Saline) 10 ml IVF Q12HR [facility] Last Admin: 08/17/17 08:58 Dose: Not Given Sodium Chloride (Flush - Normal Saline) 10 ml IVF PRN PRN PRN Reason: Saline Flush Last Admin: 08/17/17 06:11 Dose: 10 ml Sodium Chloride ([place] Nasal [place] 0.65%) 0 ml EA NARE QIDPRN PRN PRN Reason: Nasal Congestion Tamsulosin HCl (Flomax) 0.4 mg PO HS [facility] Last Admin: 08/16/17 20:31 Dose: 0.4 mg
[2017-08-17 10:42] LABS: INR-International Normal Ratio 1.1; PTT 29.7 SEC (22.9-36.1); Prothrombin Time 14.4 SEC (12.0-14.7)
[2017-08-17] MEDS ORDERED: Fentanyl 100 MCG/2 ML VIAL ONE (11:56)
[2017-08-17] MEDS ORDERED: HYDROmorphone 0.5 MG/0.5 ML SYRINGE ONE ×2 (12:26→12:42)
[2017-08-17] MEDS ORDERED: HYDROmorphone 2 MG/ML VIAL SLOW IVP PRN (12:30)
[2017-08-17] MEDS ORDERED: Promethazine HCl 25 MG/ML VIAL SLOW IVP PRN (12:30)
[2017-08-17] MEDS ORDERED: Promethazine HCl 25 MG/ML VIAL IM PRN (12:30)
[2017-08-17] MEDS ORDERED: Ondansetron HCl/PF 4 MG/2 ML Vial IVP PRN (12:30)
[2017-08-17] MEDS: Polyethylene Glycol 3350 17 GM Packet PO SCH (14:15)
[2017-08-17] MEDS: Bumetanide 1 MG TAB PO SCH (14:17)
[2017-08-17] MEDS: Aspirin 81 mg Enteric Coated Tablet PO SCH (14:17)
[2017-08-17] MEDS: Nystatin Ointment 15 GM TUBE TOP SCH (14:18)
[2017-08-17] MEDS: Famotidine 20 MG TAB PO SCH (14:18)
[2017-08-17] MEDS: DULoxetine 60 MG CAP PO SCH (14:18)
[2017-08-17] MEDS: Rosuvastatin 20 MG TAB PO SCH (14:19)
[2017-08-17] MEDS: Insulin Detemir 100 UNITS/ML 25 UNITS in Pre-Filled Syringe 1 EACH SC SCH (14:20)
[2017-08-17] MEDS ORDERED: Lidocaine 1% PF 5 ML VIAL ONE (15:23)
[2017-08-17] MEDS ORDERED: Dexamethasone 20 MG/5 ML VIAL ONE (15:23)
[2017-08-17] MEDS ORDERED: PHENYLEPHRINE-NS 100 MCG/ML 10 ML SYRINGE ONE (15:23)
[2017-08-17] MEDS ORDERED: Propofol 200 MG/20 ML VIAL ONE (15:23)
[2017-08-17] MEDS ORDERED: Ondansetron HCl/PF 4 MG/2 ML Vial ONE (15:23)
[2017-08-17] MEDS ORDERED: Glycopyrrolate 0.2 MG/ML 5 ML SYRINGE ONE (15:23)
[2017-08-17] MEDS ORDERED: HumaLOG 300 UNITS/3 ML VIAL SC SCH (17:00)
[2017-08-17] MEDS ORDERED: Insulin Detemir 100 UNITS/ML 15 UNITS in Pre-Filled Syringe SC SCH (17:00)
[2017-08-17] MEDS: HumaLOG 300 UNITS/3 ML VIAL SC PRN ×2 (17:25→22:41)
--- NOTE | 2017-08-17 19:18 | PRG ---
DATE OF SERVICE: 08/17/2017 SUBJECTIVE: He had washout and removal of hardware by Dr. Hussein and having some moderate pain at t he site. Having some abdominal cramps and wants to have a bowel movement. Has not had any voiding f or the past 4 hours since surgery. PHYSICAL EXAMINATION: VITAL SIGNS: T-max 98.4, blood pressure 130/70, pulse 82, respirations 16-20. HEENT: Ocular movements are conjugate. LUNGS: Symmetric air entry. S1 and S2, regular rate. ABDOMEN: Soft, question of bladder distention. EXTREMITIES: Right lower extremity with splint. LABORATORY DATA: White cell count 9.0, hemoglobin 8.9, platelets 498 and creatinine 2.40. We have 2 or 3 wound samples from the leg pending. The Gram stain of all 3 did not show any organisms, but th e cultures are obviously pending. ASSESSMENT AND DISCUSSION: Type 2 diabetes, renal insufficiency stage 4, hypertension, coronary chio ry disease, and fractured right tibia and knee, now with inflammatory process. Removal of hardware a nd protracted treatment with antimicrobial therapy now with recrudescence of inflammatory process fol lowing June procedure and with evidence of osteomyelitis. The patient had more hardware removed and I&D and cultures are pending and we will see what the results are and go from there. Most likely , we will need to go back on protracted treatment again for at least another 6-8 weeks.
[2017-08-17] MEDS: INSULIN DETEMIR SC SCH (21:17)
[2017-08-17] MEDS: PRE FILLED SC SCH (21:17)
[2017-08-17] MEDS: Tamsulosin HCl 0.4 MG CAP PO SCH (21:20)
[2017-08-18] MEDS: HYDROcodone/Acetaminophen 5/325 mg Tablet PO PRN ×4 (00:20→21:10)
[2017-08-18 06:03] LABS: Hemoglobin 7.9 g/dL (14.0-18.0); Mean Corpuscular HGB CONC 31.7 g/dL (32.0-36.0); Mean Corpuscular Hemoglobin 28.3 pg (27.0-31.0); Mean Corpuscular Volume 89.3 fl (80.0-94.0); Mean Platelet Volume 6.9 fL (7.4-10.4); Platelet Count 459 thou/uL (130-400); RBC Distribution Width 15.5 % (11.5-14.5); Red Blood Cell (RBC) Count 2.79 mill/uL (4.70-6.10); White Blood Cell (WBC) Count 13.9 thou/uL (4.8-10.8)
[2017-08-18] MEDS: Levothyroxine Sodium 25 MCG TAB PO SCH (06:55)
[2017-08-18] MEDS: HumaLOG 300 UNITS/3 ML VIAL SC PRN ×4 (06:56→21:14)
[2017-08-18] MEDS: Calcium Acetate 667 MG CAP PO SCH ×3 (07:02→16:11)
[2017-08-18] MEDS: Cefepime 1 GM, Admixture Fee 1 EACH in Sterile Water 10 ML SLOW IVP SCH (07:03)
--- NOTE | 2017-08-18 07:11 | OP ---
DATE OF SURGERY: 08/17/2017 ADMITTING DIAGNOSES: Right lower extremity cellulitis with possible osteomyelitis, history of right tibia fracture united, previous incision and drainage of wound and Integra grafting. POSTOPERATIVE DIAGNOSES: Right tibia nail stable and healed proximal tibia with possible osteomyelitis. PROCEDURES PERFORMED: 1. Removal of hardware deep, three locking screws and nail. 2. Bone biopsy with irrigation and debridement of osteomylitis of the intramedullary canal. 3. Placement of intramedullary nailing antibiotic spacer. STAFF: Clem Hussein M.D. CRYSTALLOGRAPHER: None. ANESTHESIA: Marcin Hanson M.D. The patient received general endotracheal intubation. ESTIMATED BLOOD LOSS: 100 mL. TOURNIQUET TIME: None. IMPLANTS: A ball-tip guidewire with an antibiotic nail made with 4 grams of vancomycin and 3.6 grams of tobramycin. EXPLANTS: x3, 5-0 locking screws and a size 12 tibial nail. CULTURES: x3 1. Right anterior lateral screw hole soft tissue. 2. Intramedullary canal proximal metaphysis. 3. Tissue within cannulated screws of nails sent for culture and path. ANTIBIOTICS: Scheduled cefepime, Ancef preoperatively. COMPLICATIONS: None. HISTORY OF PRESENT ILLNESS: Mr. Snow is a 66-year-old male who is well known to my service. The patient initially broke his leg back in 01/2017. The patient underwent urgent nailing of his right tibia. The patient then had a repeat I and D of his leg, was on IV antibiotics for suppression to allow the tibia to heal. The patient continued to have wound VAC and could not continue to heal. The patient was then switched and sent for Integra grafting by Dr. Ordoñez. That has healed. The patient actually was pain free and was doing pretty well up until about a week ago when his right knee flared up. The patient had elevated CRP, bone scan concerning for healing fracture versus osteomyelitis. I was concerned given the patient's history of severe diabetes and has been trying to get the patient to heal through the site for hardware removal and planned for explant of the tissue. The patient was admitted with a cellulitis and given this, I elected to discuss the patient's removal of hardware nail for I and D, possible antibiotic spacer. I discussed with patient the bone biopsy for osteomyelitis. I discussed with the patient the risks and benefits of surgery to include pain, scar, bleeding, infection, damage to vital structures, decreased range of motion, strength, need for further surgeries, failure of procedure, damage to skin needing further soft tissue coverage, loss of life or limb. The patient understood the risks and benefits and elected to proceed. PROCEDURE IN DETAIL: Time out was performed designating the patient's right lower extremity as the operative site based on sight, consents, and markings. After completion of timeout, the patient's right lower extremity was prepped and draped in a sterile fashion using chlorhexidine and Betadine over some of the small excoriated areas. We allowed that to dry and then started our procedure, moved distally, made a skin incision, got into probably the patient' s saphenous vessels, cauterized them and came down on the screw, removed it, cleaned out the site distally. I then moved proximally. Anterior midline incision through what would appeared the old scar incision, came down with probably portion of the Integra graft and down to the skin, came down through Integra graft to find the patient's tendon and moved proximally to help me define a plane and created skin flaps medially and laterally. I then moved fluoroscopic guidance, found and visualized my screw holes. I made a little bit longer a stab incision about 2 cm incision that was difficult to perfectly find the previous scar incision. I made my incision, dissected down, found my screws, removed my anterior medial and anterior lateral oblique screws, my anterolateral I took a soft tissue biopsy from. I then moved back to my knee and split my tendon and taken some of the tendon down to expose, placed the guidepin into place to bony curet into place. I curetted the patient's bone into place. I curetted to expose and took out the patient's screw proximally to help position my screw, passed it and removed the nail. I then curetted the bone out of the patient's proximal tibia. Under fluoroscopic AP and lateral radiographs did not show any gross movement of the nail of the tibia. Given this and the previous x-rays showing bone healing, I placed my Pulsavac canal instrument and positioned it in the patient's canal. I washed about 2 liters through the canal. At completion of this, I then moved back to the patient. I allowed it to escape distally through the distal incision and sucking it all out. I had taken two other previous specimens, one from the proximal tibia and one from the nail. After this, I started reaming, placed my ball-tip guidewire and reamed up to size 14. I then took a 32 Ecuadorean chest tube with mineral oil filled inside, cut a ball-tip guidewire to length and placed cement with about 3.6 grams of tobramycin and 4 grams of vancomycin with cement and made a nice smooth nail, cut it off, placed it down the canal with a bit proximal and a little hubcap over the top to keep it from sliding distally. I then washed the rest of the joint, I did not penetrate into the joint. I then washed, closed the tendon with #0 Prolene for the skin. I then washed, closed with prolene . I will see the patient back in 2 weeks have to come back to have this removed. Antibiotics for suppression for life. MTDD
--- NOTE | 2017-08-18 07:58 | PRG ---
DATE OF SERVICE: 08/18/2016 DICTATION TIME: 0798 HISTORY OF PRESENT ILLNESS: Mr. Snow is a 66-year-old male with history of right tibia nail who underwent a hardware removal with I&D, cultures and biopsy of soft tissue with the tibia with placem ent of antibiotic spacer nail yesterday. The patient is comfortably resting in bed. Currently he giang s a knee immobilizer, no pain. The patient is back to his previous level of control. PHYSICAL EXAMINATION: VITAL SIGNS: Afebrile, blood pressure elevated, vital signs are otherwise stable. GENERAL: Alert and oriented male in no acute distress. EXTREMITIES: Extremity knee immobilizer in place, no strike through. The patient has unchanged exam with very limited flexion plantar flexion of his right foot. The patient's sensation is diminished. He has got sluggish refill. IMPRESSION: Right proximal tibia fracture, acute on chronic infection, possible osteomyelitis. ASSESSMENT AND PLAN: The patient had 3 cultures sent from deep tissues within the patient's proximal tibia, which are pending pathology. The patient likely needs 6-8 weeks of IV antibiotics. I feel t hat he likely would require at least 1 year of antibiotic suppression. The patient's antibiotic nail will be required to be removed in 2 weeks. At this point, once he has his PICC line and IV Meloxica m he can be transferred to an outlying facility for bed space. He can return for removal of the nail in 2-3 weeks. The patient understands the plan of care and we will continue from here.
--- NOTE | 2017-08-18 08:45 | RAD ---
INTRAOPERATIVE RADIOGRAPH RIGHT TIBIA AND FIBULA: Date: 08/17/17 HISTORY: Hardware removal. FINDINGS: Three intraoperative images are provided. Osseous detail is limited on intraoperative imaging. Metall ic tray traverses the proximal tibial shaft, incompletely imaged proximally and distally. Poorly asses sed fracture with cortical and medullary irregularity noted within proximal tibia. IMPRESSION: Limited intraoperative imaging as detailed above. POS: [facility]
[2017-08-18] MEDS: Polyethylene Glycol 3350 17 GM Packet PO SCH (09:03)
[2017-08-18] MEDS: Bumetanide 1 MG TAB PO SCH (09:04)
[2017-08-18] MEDS: Aspirin 81 mg Enteric Coated Tablet PO SCH (09:04)
[2017-08-18] MEDS: DULoxetine 60 MG CAP PO SCH (09:05)
[2017-08-18] MEDS: Docusate 100 MG CAP PO SCH ×2 (09:05→21:12)
[2017-08-18] MEDS: hydrALAZINE 25 MG TAB PO SCH ×4 (09:06→21:12)
[2017-08-18] MEDS: Famotidine 20 MG TAB PO SCH (09:06)
[2017-08-18] MEDS: Heparin 5,000 UNITS/ML VIAL SC SCH ×3 (09:06→21:15)
[2017-08-18] MEDS: Insulin Detemir 100 UNITS/ML 25 UNITS in Pre-Filled Syringe 1 EACH SC SCH (09:07)
[2017-08-18] MEDS: Nystatin Ointment 15 GM TUBE TOP SCH (09:07)
[2017-08-18] MEDS: Rosuvastatin 20 MG TAB PO SCH (09:07)
[2017-08-18] MEDS: ALPRAZolam 0.25 MG TAB PO PRN ×2 (13:32→21:10)
[2017-08-18] MEDS: Vancomycin HCl 750 MG in Sodium Chloride 0.9% 250 ML 250 ML IVPB SCH (14:51)
--- NOTE | 2017-08-18 18:47 | PDOC.PN ---
- Subjective Encounter Start Date: 08/18/17 Encounter Start Time: 15:00 Patient seen and examined. No new complaints. No fever. Pain controlled. No overnight events - Objective Resuscitation Status: Resuscitation Status FULL:Full Resuscitation MAR Reviewed: Yes Vital Signs & Weight: Vital Signs (12 hours) Temp Pulse Pulse Pulse Pulse Resp BP 08/18/17 16:22 97.7 F 79 16 08/18/17 16:12 79 116/71 08/18/17 13:42 82 93 93 08/18/17 13:07 98.0 F 79 18 08/18/17 12:18 94 08/18/17 09:07 97.5 F L 94 18 08/18/17 09:06 83 152/73 H 08/18/17 07:45 98 F 83 18 BP BP BP BP Pulse Ox Pulse Ox Pulse Ox 08/18/17 16:22 116/71 100 08/18/17 16:12 08/18/17 13:42 126/53 L 130/66 144/69 H 99 99 08/18/17 13:07 124/62 100 08/18/17 12:18 08/18/17 09:07 152/73 H 100 08/18/17 09:06 08/18/17 07:45 100 Pulse Ox 08/18/17 16:22 08/18/17 16:12 08/18/17 13:42 100 08/18/17 13:07 08/18/17 12:18 08/18/17 09:07 08/18/17 09:06 08/18/17 07:45 Weight Admit Weight 264 lb 8.864 oz Weight 264 lb I&O: 08/17/17 08/18/17 08/19/17 06:59 06:59 06:59 Intake Total 1320 1840 Output Total 700 1255 500 Balance -505 35 8883 Result Diagrams: 08/18/17 05:30 08/17/17 06:31 Additional Labs: Accuchecks 08/18/17 08/18/17 08/18/17 15:37 10:34 05:34 POC Glucose 469 H 448 H 470 H 08/17/17 08/15/17 20:46 16:31 POC Glucose 469 H 380 H Phys Exam - Physical Examination Constitutional: NAD Respiratory: no wheezing, no rhonchi Cardiovascular: RRR, no rub Gastrointestinal: soft, non-tender, positive bowel sounds Neurological: moves all 4 limbs Dx/Plan - Plan DVT proph w/heparin, DVT proph w/SCDs IMPRESSION: 1. RLE Cellulitis with Osteomyelitis s/p hardware removal 08/17 2. DM1-labile 3. CKD 4 4. CAD 5. Obesity BMI 37/Anemia due to renal disease/Diabetic neuropathy PLAN: * PICC line per ID * Atbx per ID * DC planning * Cont to monitor * Cont current meds as below * AM labs * Await sensitivities on cultures below * Increase Levemir to 30 QAM and cont 35 HS Microbiology 08/17/17 10:54 Leg - Tissue Bacterial Culture - Preliminary 08/17/17 10:54 Leg - Tissue Staphylococcus aureus 08/17/17 10:52 Leg - Tissue Bacterial Culture - Preliminary 08/17/17 10:52 Leg - Tissue Staphylococcus aureus 08/17/17 10:37 Leg - Wound Bacterial Culture - Preliminary Review of Systems - Review of Systems Respiratory: negative: Cough, Dry, Shortness of Breath, Hemoptysis, SOB with Excertion, Pleuritic Pain, Sputum, Wheezing Cardiovascular: negative: chest pain, palpitations, orthopnea, paroxysmal nocturnal dyspnea, edema, light headedness Gastrointestinal: negative: Nausea, Vomiting, Abdominal Pain, Diarrhea, Constipation, Melena, Hematochezia - Medications/Allergies Allergies/Adverse Reactions: Allergies Allergy/AdvReac Type Severity Reaction Status Date / Time Sulfa (Sulfonamide Allergy Verified 06/10/17 15:34 Antibiotics) Medications: Current Medications Acetaminophen (Tylenol) 650 mg PO Q4H PRN PRN Reason: Headache/Fever or Pain Last Admin: 08/12/17 09:43 Dose: 650 mg Hydrocodone Bitart/Acetaminophen ([place] 5/325) 1 tab PO Q4H PRN PRN Reason: Moderate Pain (4-6) Last Admin: 08/17/17 00:06 Dose: 1 tab Hydrocodone Bitart/Acetaminophen ([place] 5/325) 2 tab PO Q4H PRN PRN Reason: Severe Pain (7-10) Last Admin: 08/18/17 13:31 Dose: 2 tab Al Hydroxide/Mg Hydroxide (Maalox) 15 ml PO Q4H PRN PRN Reason: Heartburn or Indigestion Alprazolam (Xanax) 0.25 mg PO TID PRN PRN Reason: Anxiety Last Admin: 08/18/17 13:32 Dose: 0.25 mg Artificial Tears (Tears Renewed 15ml Bottle) 0 drop EA EYE PRN PRN PRN Reason: Dry Eyes Aspirin (Ecotrin) 81 mg PO DAILY [facility] Last Admin: 08/18/17 09:04 Dose: 81 mg Bumetanide (Bumex) 0.5 mg PO DAILY [facility] Last Admin: 08/18/17 09:04 Dose: 0.5 mg Calcium Acetate (Phoslo) 1,334 mg PO TID-[facility] Last Admin: 08/18/17 16:11 Dose: 1,334 mg Dextrose/Water (Dextrose 50%) 25 gm SLOW IVP PRN PRN PRN Reason: Hypoglycemia Docusate Sodium (Colace) 100 mg PO BID [facility] Last Admin: 08/18/17 09:05 Dose: 100 mg Duloxetine HCl (Cymbalta) 60 mg PO DAILY [facility] Last Admin: 08/18/17 09:05 Dose: 60 mg Famotidine (Pepcid) 20 mg PO DAILY [facility] Last Admin: 08/18/17 09:06 Dose: 20 mg Fentanyl (Duragesic) 25 mcg TD Q3D [facility] Last Admin: 08/16/17 15:43 Dose: 25 mcg Glucagon (Glucagon) 1 mg IM PRN PRN PRN Reason: Hypoglycemia Guaifenesin (Robitussin Sf) 200 mg PO TIDPRN PRN PRN Reason: Cough Last Admin: 08/12/17 22:53 Dose: 200 mg Heparin Sodium (Porcine) (Heparin) 5,000 units SC TID [facility] Last Admin: 08/18/17 14:52 Dose: 5,000 units Hydralazine HCl (Apresoline) 10 mg SLOW IVP Q4H PRN PRN Reason: Systolic BP > 180 Hydralazine HCl (Apresoline) 25 mg PO QID [facility] Last Admin: 08/18/17 16:12 Dose: Not Given Dextrose/Water (D5w) 1,000 mls @ 0 mls/hr IV .Q0M PRN; As Directed PRN Reason: Hypoglycemia Cefepime HCl 1 gm/Miscellaneous Medication 1 each/ Sterile Water 10 mls @ 120 mls/hr SLOW IVP 0600 [facility] Last Admin: 08/18/17 07:03 Dose: 10 mls Insulin Detemir 35 units/ (Miscellaneous Medication) 0.35 mls @ 0 mls/hr SC HS [facility] Last Admin: 08/17/17 21:17 Dose: 0.35 mls Vancomycin HCl 750 mg/ Sodium (Chloride) 250 mls @ 250 mls/hr IVPB 1500 [facility] Last Admin: 08/18/17 14:51 Dose: 250 mls Insulin Detemir 30 units/ (Miscellaneous Medication) 0.3 mls @ 0 mls/hr SC QAM [facility] Insulin Human Lispro (Humalog) 0 units SC .BEDTIME SLIDING SC PRN PRN Reason: Bedtime Correctional Scale Last Admin: 08/17/17 22:41 Dose: 5 unit Insulin Human Lispro (Humalog) 0 units SC .AGGRESSIVE SLIDING PRN; Protocol PRN Reason: AGGRESSIVE SLIDING SCALE Last Admin: 08/18/17 16:07 Dose: 13 unit Levothyroxine Sodium (Synthroid) 25 mcg PO 0600 [facility] Last Admin: 08/18/17 06:55 Dose: 25 mcg Loratadine (Claritin) 10 mg PO DAILYPRN PRN PRN Reason: Sinus Symptoms Magnesium Hydroxide (Milk Of Magnesium) 30 ml PO DAILYPRN PRN PRN Reason: Constipation Last Admin: 08/12/17 19:59 Dose: 30 ml Mineral Oil/White Petrolatum (Eucerin Cream) 0 gm TOP BIDPRN PRN PRN Reason: Dry Skin Miscellaneous Medication (Pharmacy To Dose) 1 each IVPB PRN PRN PRN Reason: Pharmacy to dose Nystatin (Mycostatin Ointment) 0 gm TOP DAILY [facility] Last Admin: 08/18/17 09:07 Dose: 1 applic Ondansetron HCl (Zofran Odt) 4 mg PO Q6H PRN PRN Reason: Nausea/Vomiting Ondansetron HCl (Zofran) 4 mg IVP Q6H PRN PRN Reason: Nausea/Vomiting Phenol (Chloraseptic [place] 180 Ml Bot) 0 ml PO PRN PRN PRN Reason: Sore Throat Polyethylene Glycol (Miralax) 17 gm PO DAILY [facility] Last Admin: 08/18/17 09:03 Dose: 17 gm Rosuvastatin Calcium (Crestor) 20 mg PO QAM [facility] Last Admin: 08/18/17 09:07 Dose: 20 mg Sodium Chloride (Flush - Normal Saline) 10 ml IVF Q12HR CROW Last Admin: 08/18/17 10:06 Dose: 10 ml Sodium Chloride (Flush - Normal Saline) 10 ml IVF PRN PRN PRN Reason: Saline Flush Last Admin: 08/17/17 06:11 Dose: 10 ml Sodium Chloride ([place] Nasal [place] 0.65%) 0 ml EA NARE QIDPRN PRN PRN Reason: Nasal Congestion Tamsulosin HCl (Flomax) 0.4 mg PO HS [facility] Last Admin: 08/17/17 21:20 Dose: 0.4 mg
[2017-08-18] MEDS: Tamsulosin HCl 0.4 MG CAP PO SCH (21:12)
[2017-08-18] MEDS: INSULIN DETEMIR SC SCH (21:13)
[2017-08-18] MEDS: PRE FILLED SC SCH (21:13)
[2017-08-19] MEDS: HYDROcodone/Acetaminophen 5/325 mg Tablet PO PRN ×3 (03:56→15:05)
[2017-08-19 05:49] LABS: #Eosinphils 0.1 thou/uL (0.0-0.7); #Lymphocytes 1.8 thou/uL (1.20-3.40); #Monocytes 0.4 thou/uL (0.11-0.59); #Neutrophils 5.2 thou/uL (1.40-6.50); %Basophils 0.4 % (0.0-1.0); %Eosinophils 1.5 % (0.0-10.0); %Lymphocytes 23.3 % (21.0-51.0); %Monocytes 5.5 % (0.0-10.0); %Neutrophils 69.4 % (42.0-75.0); Hemoglobin 7.2 g/dL (14.0-18.0); Mean Corpuscular HGB CONC 31.6 g/dL (32.0-36.0); Mean Corpuscular Hemoglobin 28.2 pg (27.0-31.0); Mean Corpuscular Volume 89.2 fl (80.0-94.0); Platelet Count 364 thou/uL (130-400); RBC Distribution Width 15.8 % (11.5-14.5); Red Blood Cell (RBC) Count 2.55 mill/uL (4.70-6.10); White Blood Cell (WBC) Count 7.6 thou/uL (4.8-10.8)
[2017-08-19 05:56] LABS: Anion Gap 11 mmol/L (10-20); BUN (Urea Nitrogen) 50 mg/dL (8.4-25.7); Calc. Creatinine Clearance 48 mL/min (70-130); Calcium 8.4 mg/dL (7.8-10.44); Carbon Dioxide 27 mmol/L (23-31); Chloride 97 mmol/L (98-107); Estimated GFR-MDRD 25; Glucose 431 mg/dL (80-115); Magnesium 1.8 mg/dL (1.6-2.6); Potassium 4.7 mmol/L (3.5-5.1); Sodium 130 mmol/L (136-145)
[2017-08-19] MEDS: HumaLOG 300 UNITS/3 ML VIAL SC PRN ×4 (06:10→21:13)
[2017-08-19] MEDS: Cefepime 1 GM, Admixture Fee 1 EACH in Sterile Water 10 ML SLOW IVP SCH (06:10)
[2017-08-19] MEDS: Levothyroxine Sodium 25 MCG TAB PO SCH (06:10)
[2017-08-19] MEDS: ALPRAZolam 0.25 MG TAB PO PRN ×2 (08:14→16:46)
[2017-08-19] MEDS: Heparin 5,000 UNITS/ML VIAL SC SCH ×3 (08:15→21:11)
[2017-08-19] MEDS: Calcium Acetate 667 MG CAP PO SCH ×3 (08:16→16:45)
[2017-08-19] MEDS: Aspirin 81 mg Enteric Coated Tablet PO SCH (08:16)
[2017-08-19] MEDS: hydrALAZINE 25 MG TAB PO SCH ×4 (08:18→21:12)
[2017-08-19] MEDS: Famotidine 20 MG TAB PO SCH (08:19)
[2017-08-19] MEDS: Docusate 100 MG CAP PO SCH (08:19)
[2017-08-19] MEDS: Rosuvastatin 20 MG TAB PO SCH (08:19)
[2017-08-19] MEDS: DULoxetine 60 MG CAP PO SCH (08:19)
[2017-08-19] MEDS: Polyethylene Glycol 3350 17 GM Packet PO SCH ×2 (08:19→21:23)
[2017-08-19] MEDS ORDERED: Insulin Detemir 100 UNITS/ML 30 UNITS in Pre-Filled Syringe SC SCH (09:00)
[2017-08-19] MEDS: Bumetanide 1 MG TAB PO SCH (11:00)
[2017-08-19] MEDS: Nystatin Ointment 15 GM TUBE TOP SCH (11:02)
--- NOTE | 2017-08-19 12:33 | SPC ---
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 TECHNIQUE: Catheter caliber: 5 Icelandic Catheter trim length: 49 cm Catheter lumen number: Single Catheter tip location: Superior vena cava/right atrial junction Signed, informed consent was obtained. A tourniquet was applied at the proximal aspect of the arm. The arm was prepared and draped in the usual sterile fashion. A 25 gauge needle was used to apply bu ffered lidocaine superficially. The vein was punctured with a 21 gauge micropuncture needle under ul trasound guidance. A 0.018 inch guide wire was advanced through the micropuncture needle and into th e vein. Under fluoroscopic guidance, the guide wire was advanced to the right atrium. The PICC (per ipherally inserted central catheter) was flushed and trimmed to the appropriate length. The skin pun cture hole was widened with a blade. The micropuncture needle was exchanged over the guide wire for a 5 Icelandic peel-away dilator sheath. The dilator was exchanged over the guide wire for the PICC, whi ch was then further advanced under fluoroscopy. The sheath and guide wire were removed. The PICC wa s flushed again and secured in place at the arm. The patient tolerated the procedure well. There wa s no complication. IMPRESSION: Successful placement of PICC (peripherally inserted central catheter) nemo POS: [facility]
[2017-08-19] MEDS: HumaLOG 300 UNITS/3 ML VIAL SC SCH ×2 (13:48→16:47)
--- NOTE | 2017-08-19 14:28 | CON ---
DATE OF CONSULTATION: 08/19/2017 HISTORY OF PRESENT ILLNESS: Mr. Solorzano is a 66-year-old male with a right tibia nail, now with a conf irmed diagnosis of osteomyelitis with Staph. Inside the shaft from cultures taken deep. The patient has antibiotics nail in place. Resting in bed, otherwise comfortable. Using his knee immobilizer. Dressing clean, dry, and intact. PHYSICAL EXAMINATION: VITAL SIGNS: The patient is afebrile. His vitals are stable. GENERAL: Alert and oriented male, no acute distress, resting comfortably in bed. NEUROLOGIC: His sensory exam is unchanged. Cultures positive for MRSA and Staph aureus, these cultures are pending. IMPRESSION: Right tibia fracture with osteomyelitis, status post hardware exchange. ASSESSMENT AND PLAN: The patient will need removal antibiotic now in about 2 weeks as well as chroni c antibiotic suppression. The patient can be transferred to outlying facility. Return to the hospit al and given bed utilization as long as his IV antibiotics are in place. The patient will keep knee bars in place for a week. He may start bending his knee unless there is any breakdown of the wounds. We will take the sutures out in the OR and wound VAC or do what the wound as needed at that time. The patient will follow up and the patient will be admitted to Medicine Service. He will be discharg ed him when they have his disposition in place. He will come back to hospital in 2 weeks to have the antibiotic nail removed.
[2017-08-19 14:40] LABS: Vancomycin, Random 18.6 ug/mL (See Comment)
[2017-08-19] MEDS: Vancomycin HCl 750 MG in Sodium Chloride 0.9% 250 ML 250 ML IVPB SCH (15:01)
[2017-08-19] MEDS ORDERED: Eucerin (Mineral Oil/Petrolatum,White) 30 gm Jar TOP PRN (19:24)
[2017-08-19] MEDS: Senokot S 8.6-50 MG TAB PO SCH (21:11)
[2017-08-19] MEDS: Tamsulosin HCl 0.4 MG CAP PO SCH (21:11)
[2017-08-19] MEDS: PRE FILLED SC SCH (21:12)
[2017-08-19] MEDS: INSULIN DETEMIR SC SCH (21:12)
--- NOTE | 2017-08-19 21:47 | PDOC.PN ---
- Subjective Encounter Start Date: 08/19/17 Encounter Start Time: 19:30 Patient seen and examined. No new complaints. No overnight events. Pain controlled. - Objective Resuscitation Status: Resuscitation Status FULL:Full Resuscitation MAR Reviewed: Yes Vital Signs & Weight: Vital Signs (12 hours) Temp Pulse Resp BP BP Pulse Ox 08/19/17 21:12 79 108/53 L 08/19/17 21:09 98.0 F 79 18 125/66 100 08/19/17 20:17 85 111/65 08/19/17 15:46 98.3 F 85 16 111/65 100 08/19/17 13:45 80 111/56 L 08/19/17 12:03 98.0 F 80 16 111/56 L 96 Weight Admit Weight 264 lb 8.864 oz Weight 264 lb I&O: 08/18/17 08/19/17 08/20/17 06:59 06:59 06:59 Intake Total 1320 2800 Output Total 1255 1100 Balance 65 1700 Result Diagrams: 08/19/17 04:54 08/19/17 04:54 Additional Labs: Accuchecks 08/19/17 08/19/17 08/19/17 15:34 10:55 05:56 POC Glucose 391 H 374 H 408 H Phys Exam - Physical Examination Constitutional: NAD Respiratory: no wheezing, no rhonchi Cardiovascular: RRR, no rub Gastrointestinal: soft, non-tender, positive bowel sounds Neurological: moves all 4 limbs Dx/Plan - Plan continue antibiotics, PT/OT, DVT proph w/heparin, DVT proph w/SCDs IMPRESSION: 1. RLE Cellulitis with Osteomyelitis s/p hardware removal 08/17 2. DM1-labile 3. CKD 4 4. CAD 5. Obesity BMI 37/Anemia due to renal disease/Diabetic neuropathy PLAN: * s/p PICC * DC Cefepime * CM consulted for Atbx setup * Cont current meds as below * AM labs * Increase Levemir to 35 QAM and cont 35 HS * Add insulin to meal coverage with aggressive scale * Treat constipation Review of Systems - Review of Systems Respiratory: negative: Cough, Dry, Shortness of Breath, Hemoptysis, SOB with Excertion, Pleuritic Pain, Sputum, Wheezing Cardiovascular: negative: chest pain, palpitations, orthopnea, paroxysmal nocturnal dyspnea, edema, light headedness Gastrointestinal: Constipation. negative: Nausea, Vomiting, Abdominal Pain, Diarrhea, Melena, Hematochezia - Medications/Allergies Allergies/Adverse Reactions: Allergies Allergy/AdvReac Type Severity Reaction Status Date / Time Sulfa (Sulfonamide Allergy Verified 06/10/17 15:34 Antibiotics) Medications: Current Medications Acetaminophen (Tylenol) 650 mg PO Q4H PRN PRN Reason: Headache/Fever or Pain Last Admin: 08/12/17 09:43 Dose: 650 mg Hydrocodone Bitart/Acetaminophen ([place] 5/325) 1 tab PO Q4H PRN PRN Reason: Moderate Pain (4-6) Last Admin: 08/17/17 00:06 Dose: 1 tab Hydrocodone Bitart/Acetaminophen ([place] 5/325) 2 tab PO Q4H PRN PRN Reason: Severe Pain (7-10) Last Admin: 08/19/17 15:05 Dose: 2 tab Al Hydroxide/Mg Hydroxide (Maalox) 15 ml PO Q4H PRN PRN Reason: Heartburn or Indigestion Alprazolam (Xanax) 0.25 mg PO TID PRN PRN Reason: Anxiety Last Admin: 08/19/17 16:46 Dose: 0.25 mg Artificial Tears (Tears Renewed 15ml Bottle) 0 drop EA EYE PRN PRN PRN Reason: Dry Eyes Aspirin (Ecotrin) 81 mg PO DAILY [facility] Last Admin: 08/19/17 08:16 Dose: 81 mg Bumetanide (Bumex) 0.5 mg PO DAILY [facility] Last Admin: 08/19/17 11:00 Dose: 0.5 mg Calcium Acetate (Phoslo) 1,334 mg PO TID-[facility] Last Admin: 08/19/17 16:45 Dose: 1,334 mg Dextrose/Water (Dextrose 50%) 25 gm SLOW IVP PRN PRN PRN Reason: Hypoglycemia Duloxetine HCl (Cymbalta) 60 mg PO DAILY [facility] Last Admin: 08/19/17 08:19 Dose: 60 mg Famotidine (Pepcid) 20 mg PO DAILY [facility] Last Admin: 08/19/17 08:19 Dose: 20 mg Fentanyl (Duragesic) 25 mcg TD Q3D [facility] Last Admin: 08/19/17 14:05 Dose: 25 mcg Glucagon (Glucagon) 1 mg IM PRN PRN PRN Reason: Hypoglycemia Guaifenesin (Robitussin Sf) 200 mg PO TIDPRN PRN PRN Reason: Cough Last Admin: 08/12/17 22:53 Dose: 200 mg Heparin Sodium (Porcine) (Heparin) 5,000 units SC TID [facility] Last Admin: 08/19/17 21:11 Dose: 5,000 units Hydralazine HCl (Apresoline) 10 mg SLOW IVP Q4H PRN PRN Reason: Systolic BP > 180 Hydralazine HCl (Apresoline) 25 mg PO QID [facility] Last Admin: 08/19/17 21:12 Dose: Not Given Dextrose/Water (D5w) 1,000 mls @ 0 mls/hr IV .Q0M PRN; As Directed PRN Reason: Hypoglycemia Cefepime HCl 1 gm/Miscellaneous Medication 1 each/ Sterile Water 10 mls @ 120 mls/hr SLOW IVP 0600 [facility] Last Admin: 08/19/17 06:10 Dose: 10 mls Insulin Detemir 35 units/ (Miscellaneous Medication) 0.35 mls @ 0 mls/hr SC HS [facility] Last Admin: 08/19/17 21:12 Dose: 0.35 mls Vancomycin HCl 750 mg/ Sodium (Chloride) 250 mls @ 250 mls/hr IVPB 1500 [facility] Last Admin: 08/19/17 15:01 Dose: 250 mls Insulin Detemir 35 units/ (Miscellaneous Medication) 0.35 mls @ 0 mls/hr SC QAM [facility] Insulin Human Lispro (Humalog) 0 units SC .BEDTIME SLIDING SC PRN PRN Reason: Bedtime Correctional Scale Last Admin: 08/19/17 21:13 Dose: 5 unit Insulin Human Lispro (Humalog) 0 units SC .AGGRESSIVE SLIDING PRN; Protocol PRN Reason: AGGRESSIVE SLIDING SCALE Last Admin: 08/19/17 19:36 Dose: 13 unit Insulin Human Lispro (Humalog) 4 units SC 1200 [facility] Last Admin: 08/19/17 13:48 Dose: 4 unit Insulin Human Lispro (Humalog) 4 units SC 1700 [facility] Last Admin: 08/19/17 16:47 Dose: 4 unit Levothyroxine Sodium (Synthroid) 25 mcg PO 0600 [facility] Last Admin: 08/19/17 06:10 Dose: 25 mcg Loratadine (Claritin) 10 mg PO DAILYPRN PRN PRN Reason: Sinus Symptoms Magnesium Hydroxide (Milk Of Magnesium) 30 ml PO DAILYPRN PRN PRN Reason: Constipation Last Admin: 08/12/17 19:59 Dose: 30 ml Mineral Oil/White Petrolatum (Eucerin Cream) 0 gm TOP BIDPRN PRN PRN Reason: Dry Skin Mineral Oil/White Petrolatum (Eucerin Cream) 0 gm TOP BIDPRN PRN PRN Reason: Dry Skin Miscellaneous Medication (Pharmacy To Dose) 1 each IVPB PRN PRN PRN Reason: Pharmacy to dose Nystatin (Mycostatin Ointment) 0 gm TOP DAILY [facility] Last Admin: 08/19/17 11:02 Dose: 1 applic Ondansetron HCl (Zofran Odt) 4 mg PO Q6H PRN PRN Reason: Nausea/Vomiting Ondansetron HCl (Zofran) 4 mg IVP Q6H PRN PRN Reason: Nausea/Vomiting Phenol (Chloraseptic [place] 180 Ml Bot) 0 ml PO PRN PRN PRN Reason: Sore Throat Polyethylene Glycol (Miralax) 17 gm PO [facility] Last Admin: 08/19/17 21:23 Dose: 17 gm Rosuvastatin Calcium (Crestor) 20 mg PO QAM [facility] Last Admin: 08/19/17 08:19 Dose: 20 mg Senna/Docusate Sodium (Senokot S) 1 tab PO BID [facility] Last Admin: 08/19/17 21:11 Dose: 1 tab Sodium Chloride (Flush - Normal Saline) 10 ml IVF Q12HR [facility] Last Admin: 08/19/17 21:23 Dose: 10 ml Sodium Chloride (Flush - Normal Saline) 10 ml IVF PRN PRN PRN Reason: Saline Flush Last Admin: 08/17/17 06:11 Dose: 10 ml Sodium Chloride ([place] Nasal [place] 0.65%) 0 ml EA NARE QIDPRN PRN PRN Reason: Nasal Congestion Tamsulosin HCl (Flomax) 0.4 mg PO [facility] Last Admin: 08/19/17 21:11 Dose: 0.4 mg
[2017-08-20] MEDS: HYDROcodone/Acetaminophen 5/325 mg Tablet PO PRN ×4 (03:24→20:37)
[2017-08-20 04:30] LABS: Anion Gap 15 mmol/L (10-20); BUN (Urea Nitrogen) 45 mg/dL (8.4-25.7); Calc. Creatinine Clearance 51 mL/min (70-130); Carbon Dioxide 23 mmol/L (23-31); Chloride 99 mmol/L (98-107); Estimated GFR-MDRD 27; Glucose 356 mg/dL (80-115); Sodium 132 mmol/L (136-145)
[2017-08-20 05:12] LABS: Eosinophils 1 % (0-10); Hemoglobin 8.2 g/dL (14.0-18.0); Lymphocytes 17 % (21-51); MDiff Complete? YES; Mean Corpuscular Hemoglobin 30.2 pg (27.0-31.0); Mean Corpuscular Volume 88.8 fl (80.0-94.0); Mean Platelet Volume 7.5 fL (7.4-10.4); Monocytes 2 % (0-10); Neutrophil 79 % (42-75); PLT Morphology Comment Appears Adequate; Platelet Count 342 thou/uL (130-400); RBC Distribution Width 15.9 % (11.5-14.5); RBC Morphology Normal; Reactive Lymphocytes 1 % (0-10); White Blood Cell (WBC) Count 8.7 thou/uL (4.8-10.8)
[2017-08-20] MEDS: Levothyroxine Sodium 25 MCG TAB PO SCH (05:23)
[2017-08-20] MEDS: ALPRAZolam 0.25 MG TAB PO PRN ×2 (05:23→20:36)
[2017-08-20] MEDS: HumaLOG 300 UNITS/3 ML VIAL SC PRN ×3 (05:54→21:35)
[2017-08-20] MEDS: Calcium Acetate 667 MG CAP PO SCH ×3 (08:55→17:45)
[2017-08-20] MEDS: Aspirin 81 mg Enteric Coated Tablet PO SCH (08:55)
[2017-08-20] MEDS: Bumetanide 1 MG TAB PO SCH (08:56)
[2017-08-20] MEDS: Famotidine 20 MG TAB PO SCH (08:56)
[2017-08-20] MEDS: DULoxetine 60 MG CAP PO SCH (08:57)
[2017-08-20] MEDS: Heparin 5,000 UNITS/ML VIAL SC SCH ×3 (08:57→20:36)
[2017-08-20] MEDS: Insulin Detemir 100 UNITS/ML 35 UNITS in Pre-Filled Syringe 1 EACH SC SCH (08:57)
[2017-08-20] MEDS: Senokot S 8.6-50 MG TAB PO SCH ×2 (08:57→20:36)
[2017-08-20] MEDS: hydrALAZINE 25 MG TAB PO SCH ×4 (08:57→20:39)
[2017-08-20] MEDS: Rosuvastatin 20 MG TAB PO SCH (08:57)
[2017-08-20] MEDS: Nystatin Ointment 15 GM TUBE TOP SCH (08:58)
--- NOTE | 2017-08-20 09:07 | PDOC.PN ---
- Subjective Encounter Start Date: 08/20/17 Encounter Start Time: 09:00 No complaint expressed. - Objective Resuscitation Status: Resuscitation Status FULL:Full Resuscitation MAR Reviewed: Yes Vital Signs & Weight: Vital Signs (12 hours) Temp Pulse Resp BP BP Pulse Ox 08/20/17 08:00 98.1 F 81 17 139/66 95 08/20/17 04:42 98.3 F 79 16 133/71 100 08/20/17 00:38 97.9 F 74 16 131/67 100 08/19/17 21:12 79 108/53 L 08/19/17 21:10 98.0 F 79 18 100 08/19/17 21:09 98.0 F 79 18 125/66 100 Weight Admit Weight 264 lb 8.864 oz Weight 264 lb I&O: 08/19/17 08/20/17 08/21/17 06:59 06:59 06:59 Intake Total 2800 1950 Output Total 1100 750 Balance 1700 1200 Result Diagrams: 08/20/17 03:47 08/20/17 03:47 Additional Labs: Accuchecks 08/20/17 08/19/17 08/19/17 05:34 20:41 15:34 POC Glucose 371 H 368 H 391 H 08/19/17 10:55 POC Glucose 374 H Radiology Reviewed by me: Yes Phys Exam - Physical Examination HEENT: sclera anicteric Neck: no JVD Respiratory: clear to auscultation bilateral Cardiovascular: RRR Gastrointestinal: soft, non-tender, no distention, positive bowel sounds Musculoskeletal: edema present (Dressing over right leg..) Dx/Plan (1) Cellulitis of right lower extremity Code(s): L03.115 - CELLULITIS OF RIGHT LOWER LIMB Status: Acute Plan: On Antibiotics. (2) Osteomyelitis of right tibia Code(s): M86.9 - OSTEOMYELITIS, UNSPECIFIED Status: Acute Comment: Seen by orthopedic surgery. On antibiotics. (3) Anemia of renal disease Code(s): D63.1 - ANEMIA IN CHRONIC KIDNEY DISEASE Status: Chronic Comment: Hemoglobin has decreased, most likely blood loss from surgical procedure. Is not symptomatic. Check stools occult blood. (4) DM2 (diabetes mellitus, type 2) Status: Chronic Qualifiers: Comment: BS is elevated. Increase sliding scale. (5) HTN (hypertension) Code(s): I10 - ESSENTIAL (PRIMARY) HYPERTENSION Status: Chronic Comment: stable. (6) CAD (coronary artery disease) Code(s): I25.10 - ATHSCL HEART DISEASE OF [place] CORONARY ARTERY W/O ANG PCTRS Status: Chronic Qualifiers: Comment: Stable. - Plan * .
[2017-08-20] MEDS: HumaLOG 300 UNITS/3 ML VIAL SC SCH ×2 (13:22→17:45)
[2017-08-20] MEDS: Vancomycin HCl 750 MG in Sodium Chloride 0.9% 250 ML 250 ML IVPB SCH (15:26)
[2017-08-20] MEDS: Tamsulosin HCl 0.4 MG CAP PO SCH (20:36)
[2017-08-20] MEDS: Polyethylene Glycol 3350 17 GM Packet PO SCH (20:36)
[2017-08-20] MEDS: INSULIN DETEMIR SC SCH (21:35)
[2017-08-20] MEDS: PRE FILLED SC SCH (21:35)
[2017-08-21] MEDS: Levothyroxine Sodium 25 MCG TAB PO SCH (05:19)
[2017-08-21] MEDS: Milk Of Magnesia 30 ML UDCUP PO PRN (05:19)
[2017-08-21] MEDS: HumaLOG 300 UNITS/3 ML VIAL SC PRN (06:15)
[2017-08-21] MEDS: Rosuvastatin 20 MG TAB PO SCH (08:57)
[2017-08-21] MEDS: Famotidine 20 MG TAB PO SCH (08:57)
[2017-08-21] MEDS: DULoxetine 60 MG CAP PO SCH (08:57)
[2017-08-21] MEDS: Heparin 5,000 UNITS/ML VIAL SC SCH ×3 (08:57→20:39)
[2017-08-21] MEDS: Calcium Acetate 667 MG CAP PO SCH ×3 (08:57→17:38)
[2017-08-21] MEDS: hydrALAZINE 25 MG TAB PO SCH ×4 (08:57→20:44)
[2017-08-21] MEDS: Bumetanide 1 MG TAB PO SCH (08:57)
[2017-08-21] MEDS: Senokot S 8.6-50 MG TAB PO SCH ×2 (08:57→20:42)
[2017-08-21] MEDS: Aspirin 81 mg Enteric Coated Tablet PO SCH (08:57)
[2017-08-21] MEDS: Insulin Detemir 100 UNITS/ML 35 UNITS in Pre-Filled Syringe 1 EACH SC SCH (08:58)
[2017-08-21] MEDS: Nystatin Ointment 15 GM TUBE TOP SCH (09:07)
--- NOTE | 2017-08-21 09:47 | PDOC.PN ---
- Subjective Encounter Start Date: 08/21/17 Encounter Start Time: 09:30 Subjective: Expresses no specific complaint. - Objective Resuscitation Status: Resuscitation Status FULL:Full Resuscitation MAR Reviewed: Yes Vital Signs & Weight: Vital Signs (12 hours) Temp Pulse Resp BP Pulse Ox 08/21/17 08:15 98.3 F 86 18 171/74 H 100 08/21/17 08:00 98.3 F 86 18 100 08/21/17 04:06 98.1 F 81 16 128/65 100 08/20/17 23:48 98.0 F 81 17 122/64 100 Weight Admit Weight 264 lb 8.864 oz Weight 264 lb I&O: 08/20/17 08/21/17 08/22/17 06:59 06:59 06:59 Intake Total 1950 800 Output Total 750 1400 Balance 1200 -600 Result Diagrams: 08/20/17 03:47 08/20/17 03:47 Additional Labs: Accuchecks 08/21/17 08/20/17 08/20/17 05:49 20:54 16:45 POC Glucose 290 H 251 H 237 H 08/20/17 10:33 POC Glucose 242 H Radiology Reviewed by me: Yes Phys Exam - Physical Examination HEENT: sclera anicteric Neck: no JVD Respiratory: no rales Cardiovascular: RRR Gastrointestinal: soft Musculoskeletal: edema present (Right leg cellulitis.) Neurological: moves all 4 limbs Psychiatric: normal affect, A&O x 3 Dx/Plan (1) Cellulitis of right lower extremity Code(s): L03.115 - CELLULITIS OF RIGHT LOWER LIMB Status: Acute (2) Osteomyelitis of right tibia Code(s): M86.9 - OSTEOMYELITIS, UNSPECIFIED Status: Acute Comment: Seen by orthopedic surgery. On antibiotics. (3) Anemia of renal disease Code(s): D63.1 - ANEMIA IN CHRONIC KIDNEY DISEASE Status: Chronic Comment: Hemoglobin has decreased, most likely blood loss from surgical procedure. Is not symptomatic. Check stools occult blood. (4) DM2 (diabetes mellitus, type 2) Status: Chronic Qualifiers: Comment: BS is elevated. Increase levemir. Continue slidind scale. (5) HTN (hypertension) Code(s): I10 - ESSENTIAL (PRIMARY) HYPERTENSION Status: Chronic Comment: stable. (6) CAD (coronary artery disease) Code(s): I25.10 - ATHSCL HEART DISEASE OF [place] CORONARY ARTERY W/O ANG PCTRS Status: Chronic Qualifiers: Comment: Stable. - Plan -: Continue current therapy. -: follow up stools occult blood. * .
[2017-08-21] MEDS: HumaLOG 300 UNITS/3 ML VIAL SC SCH ×2 (12:38→17:39)
[2017-08-21] MEDS: HYDROcodone/Acetaminophen 5/325 mg Tablet PO PRN ×2 (13:56→20:43)
--- NOTE | 2017-08-21 14:01 | CON ---
DATE OF CONSULTATION: 08/21/2017 HISTORY OF PRESENT ILLNESS: Mr. Snow is a pleasant 66-year-old male with a right tibia osteomyel itis status post tibia fracture. Antibiotics nail exchange, positive MRSA cultures. PHYSICAL EXAMINATION: VITAL SIGNS: Afebrile, vital signs stable except for blood pressure 131/74. EXTREMITIES: Right lower extremity dressing clean, dry, and intact. Knee immobilizer in place. Sen sate unchanged. Motor unchanged. LABORATORY DATA: Microbiology positive for MRSA. IMPRESSION: Right tibial osteomyelitis, status post intermedullary nail exchange nailing with antibi otic spacer. PLAN: The patient will need antibiotic nail removed in 2-3 weeks. The patient is currently pending transfer to another facility to come back for removal of the nail and continue IV antibiotics. The p atient will be followed in-house.
[2017-08-21 14:48] LABS: Vancomycin, Trough 24.4 ug/mL
--- NOTE | 2017-08-21 14:58 | RAD ---
RIGHT TIBIA AND FIBULA 2 VIEWS: Date: 08/21/17 HISTORY: 66-year-old male with history of osteomyelitis and prior fracture. Status post hardware removal. COMPARISON: 08/17/17. FINDINGS: There has been removal of the previously noted large intramedullary tray from the tibia. In its place, there is a small caliber tray with what appears to be possibly a surrounding plastic sheath or some methacrylate. Again noted is a chronic fracture of the proximal tibia and fibula with extensive callu s. No significant change in alignment from the 08/17/17 study. IMPRESSION: Removal of the previously noted large caliber intramedullary tray with replacement with a small calibe r tray. No change in alignment. POS: AMBIKA
[2017-08-21] MEDS: Vancomycin HCl 750 MG in Sodium Chloride 0.9% 250 ML 250 ML IVPB SCH (15:15)
--- NOTE | 2017-08-21 17:40 | CON ---
DATE OF CONSULTATION: 08/21/2017 CONSULTING PHYSICIAN: Dr. Myles OLIVEIRA. REASON FOR CONSULTATION: Chronic kidney disease. REASON FOR ADMISSION: Leg pain. HISTORY OF PRESENT ILLNESS: This is a 66-year-old male with history of type 2 diabetes, chronic kidney disease stage 4, hypertension, who came to the hospital with above complaints and kidney was found to be weak and Nephrology was consulted. No fever or chills. No nausea, vomiting. The patient is feeling better. The patient was also anemic. No chest pain or palpitation reported to me. His last creatinine was 2.4, which is better than his admission. PAST MEDICAL HISTORY: Positive for chronic kidney disease stage 4, type 2 diabetes, hypertension, and coronary artery disease. PAST SURGICAL HISTORY: CABG, left knee surgery, right elbow surgery, and knee surgery. HOME MEDICATIONS: Include calcium acetate, bumetanide, Lipitor, docusate, Cymbalta, fentanyl, hydralazine, Humalog, Lantus, Zofran, MiraLax, Synthroid, Flomax, Xanax, vitamin C, and Crestor. ALLERGIES: SULFA. FAMILY HISTORY: No history of any kidney disease. REVIEW OF SYSTEMS: The following complete review of systems was negative, unless otherwise mentioned in the HPI or below. Constitutional: Weight loss or gain, ability to conduct usual activities. Skin: Rash, itching. Eyes: Double vision, pain. Ent/mouth: Nose bleeding, neck stiffness, pain, tenderness. Cardiovascular: Palpitations, dyspnea on exertion, orthopnea. Respiratory: Shortness of breath, wheezing, cough, hemoptysis, fever or night sweats. Gastrointestinal: Poor appetite, abdominal pain, heartburn, nausea,vomiting, constipation, or diarrhea. Genitourinary: Urgency, frequency, dysuria, nocturia. Musculoskeletal: Pain, swelling. Neurologic/psychiatric: Anxiety, depression. Allergy/immunologic: Skin rash, bleeding tendency. PHYSICAL EXAMINATION: GENERAL: This is an obese male in no apparent distress. VITAL SIGNS: Temperature 98.1, pulse 85, respiratory rate 18, and blood pressure 128/60. HEENT: Atraumatic, normocephalic. Oral mucosa is moist. NECK: Supple. CARDIOVASCULAR: S1 and S2 heard. Rate and rhythm regular. RESPIRATORY: Clear. ABDOMEN: Soft. MUSCULOSKELETAL: 1+ edema. DERMATOLOGIC: No skin rash. NEUROLOGIC: Alert and awake. PSYCHIATRIC: Mood and affect normal. LABORATORY AND X-RAY FINDINGS: Potassium is 5.0, BUN is 2.4. ASSESSMENT AND PLAN: 1. Acute kidney injury on chronic kidney disease stage 4. Renal function is actually better. No acute indication for dialysis. No fever and avoid nephrotoxic. 2. Hyperkalemia, mild. Limit potassium. 3. Hyponatremia. 4. Anemia, which is chronic, may need Epogen. 5. Hypertension. Titrate medication. 6. Continue pain control. 7. We will monitor renal function. MTDD
[2017-08-21] MEDS: Tamsulosin HCl 0.4 MG CAP PO SCH (20:42)
[2017-08-21] MEDS: Polyethylene Glycol 3350 17 GM Packet PO SCH (20:45)
[2017-08-21] MEDS: ALPRAZolam 0.25 MG TAB PO PRN (20:54)
[2017-08-21] MEDS ORDERED: Insulin Detemir 100 UNITS/ML 40 UNITS in Pre-Filled Syringe 1 EACH SC SCH (21:00)
[2017-08-22] MEDS: Levothyroxine Sodium 25 MCG TAB PO SCH (06:24)
[2017-08-22] MEDS: HumaLOG 300 UNITS/3 ML VIAL SC PRN ×3 (06:25→18:11)
--- NOTE | 2017-08-22 08:00 | PDOC.PN ---
- Subjective Encounter Start Date: 08/22/17 Encounter Start Time: 07:50 +constipation.. - Objective Resuscitation Status: Resuscitation Status FULL:Full Resuscitation MAR Reviewed: Yes Vital Signs & Weight: Vital Signs (12 hours) Temp Pulse Resp BP BP Pulse Ox 08/22/17 04:00 97.9 F 88 18 152/82 H 97 08/22/17 00:37 97.8 F 83 16 130/68 96 08/21/17 21:09 98.2 F 83 18 139/72 96 08/21/17 20:44 83 139/72 08/21/17 20:00 98.2 F 83 18 96 Weight Admit Weight 264 lb 8.864 oz Weight 264 lb I&O: 08/21/17 08/22/17 08/23/17 06:59 06:59 06:59 Intake Total 800 1990 Output Total 1400 1350 Balance -600 640 Result Diagrams: 08/20/17 03:47 08/20/17 03:47 Additional Labs: Accuchecks 08/22/17 08/21/17 08/21/17 05:53 20:20 16:22 POC Glucose 388 H 174 H 171 H 08/21/17 11:16 POC Glucose 186 H Phys Exam - Physical Examination Constitutional: NAD HEENT: sclera anicteric Neck: no JVD Respiratory: no rales, clear to auscultation bilateral Cardiovascular: RRR Gastrointestinal: soft Musculoskeletal: edema present (Right leg cellulitis..) Neurological: moves all 4 limbs Psychiatric: A&O x 3 Dx/Plan (1) Cellulitis of right lower extremity Code(s): L03.115 - CELLULITIS OF RIGHT LOWER LIMB Status: Acute Plan: Continue antibiotics, f/u with ortho. (2) Osteomyelitis of right tibia Code(s): M86.9 - OSTEOMYELITIS, UNSPECIFIED Status: Acute Comment: Seen by orthopedic surgery. On antibiotics. (3) Anemia of renal disease Code(s): D63.1 - ANEMIA IN CHRONIC KIDNEY DISEASE Status: Chronic Comment: Hemoglobin has decreased, most likely blood loss from surgical procedure. Is not symptomatic. Check stools occult blood. (4) DM2 (diabetes mellitus, type 2) Status: Chronic Qualifiers: Comment: BS is elevated. Increase levemir. Continue sliding scale. Sales Commissions Analyst to see. (5) HTN (hypertension) Code(s): I10 - ESSENTIAL (PRIMARY) HYPERTENSION Status: Chronic Comment: stable. (6) CAD (coronary artery disease) Code(s): I25.10 - ATHSCL HEART DISEASE OF [place] CORONARY ARTERY W/O ANG PCTRS Status: Chronic Qualifiers: Comment: Stable. (7) Renal insufficiency Status: Acute Comment: Seen by nephrology. - Plan -: Continue current therapy. -: Increase vinsulin. -: Sales Commissions Analyst to see. * .
[2017-08-22] MEDS ORDERED: Insulin Detemir 100 UNITS/ML 40 UNITS in Pre-Filled Syringe 1 EACH SC SCH (09:00)
[2017-08-22] MEDS: Rosuvastatin 20 MG TAB PO SCH (10:00)
[2017-08-22] MEDS: DULoxetine 60 MG CAP PO SCH (10:00)
[2017-08-22] MEDS: Calcium Acetate 667 MG CAP PO SCH ×3 (10:00→18:13)
[2017-08-22] MEDS: Famotidine 20 MG TAB PO SCH (10:01)
[2017-08-22] MEDS: Senokot S 8.6-50 MG TAB PO SCH ×2 (10:01→21:16)
[2017-08-22] MEDS: Aspirin 81 mg Enteric Coated Tablet PO SCH (10:01)
[2017-08-22] MEDS: hydrALAZINE 25 MG TAB PO SCH ×4 (10:01→21:16)
[2017-08-22] MEDS: Heparin 5,000 UNITS/ML VIAL SC SCH ×3 (10:01→21:17)
[2017-08-22] MEDS: Insulin Detemir 100 UNITS/ML 45 UNITS in Pre-Filled Syringe SC SCH ×2 (10:02→21:17)
[2017-08-22] MEDS: Bumetanide 1 MG TAB PO SCH (10:02)
[2017-08-22] MEDS: Nystatin Ointment 15 GM TUBE TOP SCH (10:09)
[2017-08-22] MEDS: HYDROcodone/Acetaminophen 5/325 mg Tablet PO PRN ×2 (11:50→18:14)
[2017-08-22] MEDS: HumaLOG 300 UNITS/3 ML VIAL SC SCH ×2 (11:57→18:11)
--- NOTE | 2017-08-22 14:04 | PRG ---
DATE OF SERVICE: 08/22/2017 SUBJECTIVE: Patient was seen and examined at bedside and overnight events noted. Patient denies any shortness of breath or chest pain or palpitation. No history of nausea or vomiting or diarrhea or f ever or chills or cramps. OBJECTIVE: GENERAL: This is an obese male in no apparent distress. VITAL SIGNS: Temperature 97.8, pulse 82, respiratory 18, blood pressure 130/68. HEENT: Atraumatic, normocephalic. Oral mucosa is moist. Neck: Supple Cardiovascular: S1 and S2 heard. Rate and rhythm regular. Respiratory: Clear to auscultation. Gastrointestinal: Abdomen is soft. Musculoskeletal: No tenderness, no edema. Dermatologic: No skin rash. Neurologic: Alert and awake and oriented x3. No focal neurologic deficits. Moving all the extremit ies. Psychiatric: Mood and affect normal. LABORATORY DATA: Not done today. ASSESSMENT AND PLAN: 1. Acute kidney injury on chronic kidney disease. We will check labs in the morning. 2. Hyperkalemia, limit potassium. 3. Hyponatremia. 4. Anemia. 5. Hypertension. 6. Edema. Plan is to check labs in the morning. We will follow renal function. Avoid nephrotoxins.
[2017-08-22] MEDS ORDERED: ALPRAZolam 0.25 MG TAB PO SCH (16:45)
[2017-08-22] MEDS: Tamsulosin HCl 0.4 MG CAP PO SCH (21:16)
[2017-08-22] MEDS: Vancomycin HCl 500 MG in Sodium Chloride 0.9% 100 ML IVPB SCH (21:18)
[2017-08-22] MEDS: Polyethylene Glycol 3350 17 GM Packet PO SCH (21:36)
[2017-08-23] MEDS: HYDROcodone/Acetaminophen 5/325 mg Tablet PO PRN ×3 (01:46→13:33)
[2017-08-23 05:15] LABS: Anion Gap 12 mmol/L (10-20); BUN (Urea Nitrogen) 33 mg/dL (8.4-25.7); Calc. Creatinine Clearance 54 mL/min (70-130); Calcium 9.4 mg/dL (7.8-10.44); Carbon Dioxide 27 mmol/L (23-31); Chloride 102 mmol/L (98-107); Estimated GFR-MDRD 29; Glucose 148 mg/dL (80-115); Potassium 4.7 mmol/L (3.5-5.1); Sodium 136 mmol/L (136-145)
[2017-08-23] MEDS: Levothyroxine Sodium 25 MCG TAB PO SCH (05:54)
[2017-08-23] MEDS: HumaLOG 300 UNITS/3 ML VIAL SC PRN (06:52)
[2017-08-23] MEDS: hydrALAZINE 25 MG TAB PO SCH ×4 (09:08→21:52)
[2017-08-23] MEDS: Aspirin 81 mg Enteric Coated Tablet PO SCH (09:08)
[2017-08-23] MEDS: Calcium Acetate 667 MG CAP PO SCH ×3 (09:08→17:59)
[2017-08-23] MEDS: Famotidine 20 MG TAB PO SCH (09:09)
[2017-08-23] MEDS: Bumetanide 1 MG TAB PO SCH (09:09)
[2017-08-23] MEDS: Senokot S 8.6-50 MG TAB PO SCH ×2 (09:09→21:52)
[2017-08-23] MEDS: DULoxetine 60 MG CAP PO SCH (09:09)
[2017-08-23] MEDS: Rosuvastatin 20 MG TAB PO SCH (09:09)
[2017-08-23] MEDS: Heparin 5,000 UNITS/ML VIAL SC SCH ×3 (09:14→21:55)
[2017-08-23] MEDS: Insulin Detemir 100 UNITS/ML 45 UNITS in Pre-Filled Syringe SC SCH ×2 (09:18→21:56)
--- NOTE | 2017-08-23 09:24 | PRG ---
DATE OF SERVICE: 08/23/2017 SUBJECTIVE: This is a 66-year-old gentleman being seen for acute kidney injury. The patient denies any nausea, vomiting or chest pain. PHYSICAL EXAMINATION: GENERAL: Patient is awake, alert. VITAL SIGNS: Afebrile, pulse 93, breathing at 16, blood pressure 132/69. HEAD/NECK: Normocephalic. Atraumatic. EYES: EOMI. No deformity. EARS: Clear. No ulcers. NOSE: Intact. No lesions. MOUTH: Clear. No discharge. THROAT: Clear. No exudate. LUNGS: Clear. No crackles. CARDIAC: S1, S2. No rub. ABDOMEN: Benign. BS+. GENITALIA/RECTUM: Knight absent. BACK/EXTREMITIES: Edema 0+ Ulcer- NEUROLOGICAL: Alert and motor intact. SKIN: Rash- Bruise- LYMPHATICS: Edema- Ulcer- LABORATORY DATA: Show hemoglobin 8.2, creatinine 2.2. ASSESSMENT AND RECOMMENDATIONS: 1. Chronic kidney disease stage 4 with acute kidney injury, stable. We will plan renal ultrasound. 2. Hypertension, stable. 3. Anemia, stable. We will need Epogen as an outpatient.
--- NOTE | 2017-08-23 10:41 | ULT ---
RENAL ULTRASOUND: CLINICAL HISTORY: Chronic renal disease. FINDINGS: There is incomplete assessment of the left kidney as there is persistent shadowing from bowel content s limiting assessment. No evidence of hydronephrosis or suspicious renal lesion of the right kidney. The demonstrated right renal length is approximately 11 cm. Mild distention of the urinary bladder present. IMPRESSION: 1. Incomplete assessment of the left kidney due to persistent areas of shadowing artifact from regio nal bowel. 2. No acute right renal pathology. POS: NAVARRO
[2017-08-23] MEDS: HumaLOG 300 UNITS/3 ML VIAL SC SCH ×2 (13:24→17:59)
--- NOTE | 2017-08-23 14:14 | PDOC.PN ---
- Subjective Encounter Start Date: 08/23/17 Encounter Start Time: 14:12 Mr. Snow does not have any complaints other than he needs his " crazy pill" . He further clarified this to mean Xanax. He denies leg pain. - Objective Resuscitation Status: Resuscitation Status FULL:Full Resuscitation MAR Reviewed: Yes Vital Signs & Weight: Vital Signs (12 hours) Temp Pulse Resp BP Pulse Ox 08/23/17 11:00 98.3 F 102 H 22 H 146/78 H 95 08/23/17 07:30 98.3 F 93 21 H 132/69 93 L 08/23/17 04:21 98.1 F 81 18 138/71 96 Weight Admit Weight 264 lb 8.864 oz Weight 264 lb I&O: 08/22/17 08/23/17 08/24/17 06:59 06:59 06:59 Intake Total 1989 2019 Output Total 1350 2185 Balance 640 -165 Result Diagrams: 08/20/17 03:47 08/23/17 04:03 Additional Labs: Accuchecks 08/23/17 08/23/17 08/23/17 11:30 04:04 01:42 POC Glucose 118 H 159 H 185 H 08/22/17 08/22/17 22:17 16:17 POC Glucose 242 H 280 H Phys Exam - Physical Examination HEENT: PERRLA Respiratory: no wheezing, no rales, no rhonchi, clear to auscultation bilateral Cardiovascular: RRR, no significant murmur Gastrointestinal: soft, non-tender, positive bowel sounds Musculoskeletal: no edema Dx/Plan (1) Cellulitis of right lower extremity Code(s): L03.115 - CELLULITIS OF RIGHT LOWER LIMB Status: Acute (2) Osteomyelitis of right tibia Code(s): M86.9 - OSTEOMYELITIS, UNSPECIFIED Status: Acute Comment: Seen by orthopedic surgery. On antibiotics. (3) Anemia of renal disease Code(s): D63.1 - ANEMIA IN CHRONIC KIDNEY DISEASE Status: Chronic Comment: Hemoglobin has decreased, most likely blood loss from surgical procedure. Is not symptomatic. Check stools occult blood. (4) CAD (coronary artery disease) Code(s): I25.10 - ATHSCL HEART DISEASE OF [place] CORONARY ARTERY W/O ANG PCTRS Status: Chronic Qualifiers: Comment: Stable. (5) DM2 (diabetes mellitus, type 2) Status: Chronic Qualifiers: Comment: BS is elevated. Increase levemir. Continue sliding scale. Polygraph Operator to see. (6) HTN (hypertension) Code(s): I10 - ESSENTIAL (PRIMARY) HYPERTENSION Status: Chronic Comment: stable. (7) CKD (chronic kidney disease) stage 4, GFR 15-29 ml/min Code(s): N18.4 - CHRONIC KIDNEY DISEASE, STAGE 4 (SEVERE) Status: Acute - Plan * Cellulitis, and Osteomyelitis of the right lower extremity- Patient will need to be on Vancomycin until October 10, and then Minocin for 6 months * CKD- stage 4- renal function is stable * HTN- blood pressure is stable * DM- blood glucose is stable * Awaiting surgery to remove antibiotic nail.
[2017-08-23] MEDS: ALPRAZolam 0.5 MG TAB PO PRN (15:54)
[2017-08-23] MEDS: Nystatin Ointment 15 GM TUBE TOP SCH (18:03)
[2017-08-23] MEDS: Polyethylene Glycol 3350 17 GM Packet PO SCH (21:52)
[2017-08-23] MEDS: ALPRAZolam 0.5 MG TAB PO SCH (21:52)
[2017-08-23] MEDS: Tamsulosin HCl 0.4 MG CAP PO SCH (21:52)
[2017-08-23] MEDS: Vancomycin HCl 500 MG in Sodium Chloride 0.9% 100 ML IVPB SCH (21:52)
[2017-08-24] MEDS: HYDROcodone/Acetaminophen 5/325 mg Tablet PO PRN ×3 (05:31→21:30)
[2017-08-24] MEDS: Levothyroxine Sodium 25 MCG TAB PO SCH (05:31)
[2017-08-24] MEDS: ALPRAZolam 0.5 MG TAB PO PRN (05:31)
[2017-08-24] MEDS: HumaLOG 300 UNITS/3 ML VIAL SC PRN ×2 (06:51→16:34)
[2017-08-24] MEDS: Insulin Detemir 100 UNITS/ML 45 UNITS in Pre-Filled Syringe SC SCH ×2 (08:21→21:28)
[2017-08-24] MEDS: Heparin 5,000 UNITS/ML VIAL SC SCH ×3 (08:21→21:32)
[2017-08-24] MEDS: Bumetanide 1 MG TAB PO SCH (08:22)
[2017-08-24] MEDS: Aspirin 81 mg Enteric Coated Tablet PO SCH (08:22)
[2017-08-24] MEDS: Famotidine 20 MG TAB PO SCH (08:22)
[2017-08-24] MEDS: Rosuvastatin 20 MG TAB PO SCH (08:22)
[2017-08-24] MEDS: Calcium Acetate 667 MG CAP PO SCH ×3 (08:22→16:34)
[2017-08-24] MEDS: hydrALAZINE 25 MG TAB PO SCH ×4 (08:22→21:32)
[2017-08-24] MEDS: DULoxetine 60 MG CAP PO SCH (08:22)
[2017-08-24] MEDS: Nystatin Ointment 15 GM TUBE TOP SCH (08:23)
[2017-08-24] MEDS: Senokot S 8.6-50 MG TAB PO SCH ×2 (08:24→19:58)
--- NOTE | 2017-08-24 12:19 | PRG ---
DATE OF SERVICE: 08/24/2017 SUBJECTIVE: This is a 66-year-old gentleman being seen for acute kidney injury. The patient denies any nausea, vomiting or chest pain. PHYSICAL EXAMINATION: GENERAL: Patient is awake, alert. VITAL SIGNS: Afebrile, pulse 85, breathing at 16, blood pressure 162/78. HEAD/NECK: Normocephalic. Atraumatic. EYES: EOMI. No deformity. EARS: Clear. No ulcers. NOSE: Intact. No lesions. MOUTH: Clear. No discharge. THROAT: Clear. No exudate. LUNGS: Clear. No crackles. CARDIAC: S1, S2. No rub. ABDOMEN: Benign. BS+. GENITALIA/RECTUM: Knight absent. BACK/EXTREMITIES: Edema 0+ Ulcer- NEUROLOGICAL: Alert and motor intact. SKIN: Rash- Bruise- LYMPHATICS: Edema- Ulcer- LABORATORY DATA: Pending. ASSESSMENT AND PLAN: 1. Stage 4 chronic kidney disease with acute kidney injury. Recheck labs. 2. Hypertension, stable. 3. Anemia. We will recheck hemoglobin. No urgent indication for dialysis. We will follow the wesley ent's renal function closely.
[2017-08-24] MEDS: HumaLOG 300 UNITS/3 ML VIAL SC SCH ×2 (12:23→16:33)
[2017-08-24 12:28] LABS: #Eosinphils 0.2 thou/uL (0.0-0.7); #Lymphocytes 1.6 thou/uL (1.20-3.40); #Monocytes 0.5 thou/uL (0.11-0.59); #Neutrophils 6.1 thou/uL (1.40-6.50); %Basophils 0.5 % (0.0-1.0); %Eosinophils 2.1 % (0.0-10.0); %Lymphocytes 18.7 % (21.0-51.0); %Monocytes 6.2 % (0.0-10.0); %Neutrophils 72.6 % (42.0-75.0); Hemoglobin 8.3 g/dL (14.0-18.0); Mean Corpuscular HGB CONC 32.9 g/dL (32.0-36.0); Mean Corpuscular Hemoglobin 29.5 pg (27.0-31.0); Mean Corpuscular Volume 89.6 fl (80.0-94.0); Mean Platelet Volume 7.4 fL (7.4-10.4); Platelet Count 329 thou/uL (130-400); RBC Distribution Width 16.3 % (11.5-14.5); Red Blood Cell (RBC) Count 2.82 mill/uL (4.70-6.10); White Blood Cell (WBC) Count 8.4 thou/uL (4.8-10.8)
[2017-08-24 12:46] LABS: Anion Gap 13 mmol/L (10-20); BUN (Urea Nitrogen) 34 mg/dL (8.4-25.7); Calc. Creatinine Clearance 50 mL/min (70-130); Calcium 9.2 mg/dL (7.8-10.44); Carbon Dioxide 27 mmol/L (23-31); Chloride 100 mmol/L (98-107); Estimated GFR-MDRD 27; Glucose 267 mg/dL (80-115); Sodium 135 mmol/L (136-145)
--- NOTE | 2017-08-24 15:52 | PDOC.PN ---
- Subjective Encounter Start Date: 08/24/17 Encounter Start Time: 15:50 Mr. Snow was seen today in follow-up of right lower extremity cellulitis. He does not have any complaints. - Objective Resuscitation Status: Resuscitation Status FULL:Full Resuscitation MAR Reviewed: Yes Vital Signs & Weight: Vital Signs (12 hours) Temp Pulse Resp BP BP Pulse Ox 08/24/17 12:23 88 148/77 H 08/24/17 12:18 97.9 F 88 20 148/77 H 97 08/24/17 08:40 97.9 F 88 20 97 08/24/17 08:22 85 163/76 H 08/24/17 08:05 98.2 F 83 16 163/76 H 95 08/24/17 04:50 98.0 F 85 16 162/78 H 95 Weight Admit Weight 264 lb 8.864 oz Weight 264 lb I&O: 08/23/17 08/24/17 08/25/17 06:59 06:59 06:59 Intake Total 2019 1790 Output Total 218 1650 Balance -165 140 Result Diagrams: 08/24/17 12:19 08/24/17 12:19 Additional Labs: Accuchecks 08/24/17 08/24/17 08/23/17 11:21 05:36 21:21 POC Glucose 277 H 274 H 148 H 08/23/17 16:18 POC Glucose 112 H Phys Exam - Physical Examination HEENT: PERRLA Respiratory: no wheezing, no rales, no rhonchi, clear to auscultation bilateral Cardiovascular: RRR, no significant murmur Gastrointestinal: soft, positive bowel sounds + trace edema, mild bruising Dx/Plan (1) Cellulitis of right lower extremity Code(s): L03.115 - CELLULITIS OF RIGHT LOWER LIMB Status: Acute (2) Osteomyelitis of right tibia Code(s): M86.9 - OSTEOMYELITIS, UNSPECIFIED Status: Acute Comment: Seen by orthopedic surgery. On antibiotics. (3) Anemia of renal disease Code(s): D63.1 - ANEMIA IN CHRONIC KIDNEY DISEASE Status: Chronic Comment: Hemoglobin has decreased, most likely blood loss from surgical procedure. Is not symptomatic. Check stools occult blood. (4) CAD (coronary artery disease) Code(s): I25.10 - ATHSCL HEART DISEASE OF [place] CORONARY ARTERY W/O ANG PCTRS Status: Chronic Qualifiers: Comment: Stable. (5) DM2 (diabetes mellitus, type 2) Status: Chronic Qualifiers: Comment: BS is elevated. Increase levemir. Continue sliding scale. 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 (6) HTN (hypertension) Code(s): I10 - ESSENTIAL (PRIMARY) HYPERTENSION Status: Chronic Comment: stable. (7) CKD (chronic kidney disease) stage 4, GFR 15-29 ml/min Code(s): N18.4 - CHRONIC KIDNEY DISEASE, STAGE 4 (SEVERE) Status: Acute - Plan * Cellulitis and Osteomyelitis of the right leg, and tibia( respectively) - continue IC Vancomycin * HTN- blood pressure is stable * DM- blood glucose is stable * CKD- stable * Awaiting placement, and removal of Antibiotic nail.
[2017-08-24] MEDS: Polyethylene Glycol 3350 17 GM Packet PO SCH (19:57)
[2017-08-24 20:34] LABS: Vancomycin, Trough 23.3 ug/mL
[2017-08-24] MEDS: Vancomycin HCl 500 MG in Sodium Chloride 0.9% 100 ML IVPB SCH (21:29)
[2017-08-24] MEDS: ALPRAZolam 0.5 MG TAB PO SCH (21:30)
[2017-08-24] MEDS: Tamsulosin HCl 0.4 MG CAP PO SCH (21:30)
[2017-08-25] MEDS: HYDROcodone/Acetaminophen 5/325 mg Tablet PO PRN ×2 (03:17→14:05)
[2017-08-25] MEDS: Levothyroxine Sodium 25 MCG TAB PO SCH (05:36)
[2017-08-25] MEDS: ALPRAZolam 0.5 MG TAB PO PRN ×2 (05:36→14:05)
[2017-08-25 08:37] VITALS: BP 156/79
[2017-08-25] MEDS: Famotidine 20 MG TAB PO SCH (10:17)
[2017-08-25] MEDS: Rosuvastatin 20 MG TAB PO SCH (10:17)
[2017-08-25] MEDS: Heparin 5,000 UNITS/ML VIAL SC SCH (10:17)
[2017-08-25] MEDS: DULoxetine 60 MG CAP PO SCH (10:17)
[2017-08-25] MEDS: Senokot S 8.6-50 MG TAB PO SCH (10:18)
[2017-08-25] MEDS: Calcium Acetate 667 MG CAP PO SCH ×2 (10:18→13:30)
[2017-08-25] MEDS: hydrALAZINE 25 MG TAB PO SCH ×2 (10:18→13:30)
[2017-08-25] MEDS: Bumetanide 1 MG TAB PO SCH (10:18)
[2017-08-25] MEDS: Aspirin 81 mg Enteric Coated Tablet PO SCH (10:18)
[2017-08-25] MEDS: Insulin Detemir 100 UNITS/ML 45 UNITS in Pre-Filled Syringe SC SCH (10:20)
[2017-08-25] MEDS: Nystatin Ointment 15 GM TUBE TOP SCH (10:23)
[2017-08-25 11:18] LABS: #Eosinphils 0.3 thou/uL (0.0-0.7); #Monocytes 0.6 thou/uL (0.11-0.59); %Basophils 0.4 % (0.0-1.0); %Monocytes 7.1 % (0.0-10.0); %Neutrophils 67.6 % (42.0-75.0); Hemoglobin 8.4 g/dL (14.0-18.0); Mean Corpuscular HGB CONC 31.8 g/dL (32.0-36.0); Mean Corpuscular Hemoglobin 28.5 pg (27.0-31.0); Mean Corpuscular Volume 89.5 fl (80.0-94.0); Mean Platelet Volume 7.5 fL (7.4-10.4); Platelet Count 326 thou/uL (130-400); RBC Distribution Width 16.1 % (11.5-14.5); Red Blood Cell (RBC) Count 2.93 mill/uL (4.70-6.10); White Blood Cell (WBC) Count 8.8 thou/uL (4.8-10.8)
--- NOTE | 2017-08-25 11:26 | PRG ---
DATE OF SERVICE: 08/25/2017 SUBJECTIVE: This is a 66-year-old gentleman being seen for acute kidney injury. The patient denies any nausea, vomiting, or chest pain. PHYSICAL EXAMINATION: GENERAL: Patient is awake, alert. VITAL SIGNS: Afebrile, pulse 81, breathing at 16, blood pressure 134/67. GENERAL APPEARANCE AND MENTAL STATUS: Fair. HEAD/NECK: Normocephalic. Atraumatic. EYES: EOMI. No deformity. EARS: Clear. No ulcers. NOSE: Intact. No lesions. MOUTH: Clear. No discharge. THROAT: Clear. No exudate. LUNGS: Clear. No crackles. CARDIAC: S1, S2. No rub. ABDOMEN: Benign. BS+. GENITALIA/RECTUM: Knight absent. BACK/EXTREMITIES: Edema 0+ Ulcer- NEUROLOGICAL: Alert and motor intact. SKIN: Rash- Bruise- LYMPHATICS: Edema- Ulcer- LABORATORY: Hemoglobin 8.3, creatinine 2.4. ASSESSMENT: 1. Stage 4 chronic kidney disease, stable. 2. Hypertension, stable. 3. Anemia, stable. 4. Hyperkalemia. Recommend a low potassium diet. Will recheck labs today. MTDD
[2017-08-25 11:34] LABS: Anion Gap 12 mmol/L (10-20); BUN (Urea Nitrogen) 37 mg/dL (8.4-25.7); Calc. Creatinine Clearance 53 mL/min (70-130); Calcium 9.1 mg/dL (7.8-10.44); Carbon Dioxide 28 mmol/L (23-31); Chloride 103 mmol/L (98-107); Estimated GFR-MDRD 28; Glucose 81 mg/dL (80-115); Potassium 4.9 mmol/L (3.5-5.1); Sodium 138 mmol/L (136-145)
[2017-08-25 12:21] VITALS: TEMP 98
[2017-08-25] MEDS: HumaLOG 300 UNITS/3 ML VIAL SC SCH (13:30)
--- NOTE | 2017-08-25 20:47 | DIS ---
DATE OF ADMISSION: 08/10/2017 DATE OF DISCHARGE: 08/25/2017 DISCHARGE DISPOSITION: Back to his assisted living facility. DISCHARGE DIAGNOSES: 1. Cellulitis and osteomyelitis of the right leg and right tibia. 2. Diabetes mellitus 3. Deconditioning. 4. Chronic kidney disease stage IV. 5. Hypertension. 6. Coronary artery disease. 7. Diabetes mellitus type 1. DISCHARGE MEDICATIONS: Include vancomycin 750 mg every other day until 10/10. He is to continue Tyl enol 500 mg q.6 h. as needed, alprazolam 0.5 mg t.i.d. and at bedtime as needed, ascorbic acid 500 mg daily, aspirin 81 mg daily, Lipitor 40 mg daily, bumetanide 0.5 mg daily, calcium acetate 1334 mg t. i.d., Dexilant 60 mg daily, Cymbalta 60 mg twice a day, Duragesic patch 25 mcg every 3 days, Humalog sliding scale, hydralazine 25 mg q.i.d., Atco 5/325 to 7.5 mg q.6 h. as needed, hydroxyzine 25 mg t. i.d., Levemir insulin 45 units subq q.a.m., levothyroxine 25 mcg daily, magnesium hydroxide p.r.n., m ultivitamin once a day, Zofran 4 mg as needed, Crestor 20 mg daily, Senokot p.r.n., Flomax 0.4 mg miguel angel ly. PROCEDURES DONE DURING ADMISSION: The patient had a nuclear bone scan showing findings suspicious of osteomyelitis and the proximal tibia. The patient also had removal of hardware of 3 locking screws and a nail, also a bone biopsy and irrigation and placement of an intramedullary nailing antibiotic s pacer. CODE STATUS: FULL CODE. ALLERGIES: To SULFA. HOSPITAL COURSE: Mr. Snow is a pleasant 66-year-old who was admitted for worsening redness in hi s legs as well as swelling and pain. He was found to have a recurrence of cellulitis in the right lo wer extremity. It was discovered that he also had the development of osteomyelitis and the tibia. Oscar e was started on IV antibiotics. The bacterial culture from the leg tissue grew methicillin-resistan t Staph and he was seen by Dr. Patrick, who recommended IV vancomycin for about 6-8 weeks. Therapy darryl l be ending on 10/10. The patient had removal of the infected hardware and placement of an antibioti c nail. He will need to have this removed approximately 1 week from the time of his discharge here a t our facility. In the interim, he will be transferred back to his assisted living facility on the I V antibiotics and then return in a week to have the antibiotic nail removed.
[2017-08-26] MEDS ORDERED: Vancomycin HCl 750 MG in Sodium Chloride 0.9% 250 ML 250 ML IVPB SCH (21:00)
== END 2017-08-25 16:04 | DRG 580 ==
LOC: ERS 19:12 → 3SE 21:31 → SURG B 08-11 17:12
PROVIDERS: ADMIT Internal Medicine; ATTEND Internal Medicine
PROC: 30233N1 Transfusion of Nonautologous Red Blood Cells into Peripheral Vein, Percutaneous Approach (ICD-10-PCS; 2017-08-11)
PROC: 0QHG06Z Insertion of Intramedullary Internal Fixation Device into Right Tibia, Open Approach (ICD-10-PCS; principal; 2017-08-17)
PROC: 0QBG0ZX Excision of Right Tibia, Open Approach, Diagnostic (ICD-10-PCS; 2017-08-17)
PROC: 0QPG04Z Removal of Internal Fixation Device from Right Tibia, Open Approach (ICD-10-PCS; 2017-08-17)
PROC: 0YH Anatomical Regions, Lower Extremities, Insertion (ICD-10-PCS; 2017-08-17)
PROC: 02HV33Z Insertion of Infusion Device into Superior Vena Cava, Percutaneous Approach (ICD-10-PCS; 2017-08-19)
DX: L03.115 Cellulitis of right lower limb (principal); N17.9 Acute kidney failure, unspecified; E10.22 Type 1 diabetes mellitus with diabetic chronic kidney disease; M86.161 Other acute osteomyelitis, right tibia and fibula; M00.9 Pyogenic arthritis, unspecified; E10.40 Type 1 diabetes mellitus with diabetic neuropathy, unspecified; S82.101A Unspecified fracture of upper end of right tibia, initial encounter for closed fracture; D63.1 Anemia in chronic kidney disease; E87.1 Hypo-osmolality and hyponatremia; N18.4 Chronic kidney disease, stage 4 (severe); T84.622A Infection and inflammatory reaction due to internal fixation device of right tibia, initial encounter; E10.69 Type 1 diabetes mellitus with other specified complication; E10.65 Type 1 diabetes mellitus with hyperglycemia; I12.9 Hypertensive chronic kidney disease with stage 1 through stage 4 chronic kidney disease, or unspecified chronic kidney disease; I25.10 Atherosclerotic heart disease of native coronary artery without angina pectoris; B95.62 Methicillin resistant Staphylococcus aureus infection as the cause of diseases classified elsewhere; Z95.1 Presence of aortocoronary bypass graft; Z89.421 Acquired absence of other right toe(s); I87.8 Other specified disorders of veins; E87.5 Hyperkalemia; E66.9 Obesity, unspecified; I87.2 Venous insufficiency (chronic) (peripheral); Z68.37 Body mass index [BMI] 37.0-37.9, adult; E10.649 Type 1 diabetes mellitus with hypoglycemia without coma
CPT/HCPCS: 36415; 36416; 36430; 36569; 76001; 76770; 78315; 80048; 80053; 80202; 81003; 81015; 83605; 83735; 85025; 85027; 85610; 85652; 85730; 86140; 86850; 86900; 86901; 87070; 87077; 87186; 87205; 96365; 96366; 96375; A4216; A9503; C1713; C1751; C1769; G8978-GP-CN; G8979-GP-CK; J0692; J1100; J1170; J1644; J1815; J2001; J2405; J2704; J3010; J3260; J3370; J7050; P9016

== ENCOUNTER 2017-09-02 08:00 | Inpatient (IN) | payer MEDICARE ==
[2017-09-02] MEDS ORDERED: Insulin Regular 300 UNITS/3 ML VIAL ONE (08:55)
[2017-09-02 09:55] LABS: INR-International Normal Ratio 1.1; Prothrombin Time 13.8 SEC (12.0-14.7)
[2017-09-02 09:56] LABS: PTT 37.6 SEC (22.9-36.1)
[2017-09-02] MEDS ORDERED: Ondansetron HCl/PF 4 MG/2 ML Vial IVP PRN ×2 (11:01→13:44)
[2017-09-02] MEDS ORDERED: Fentanyl 100 MCG/2 ML VIAL ONE ×3 (11:19→12:08)
--- NOTE | 2017-09-02 13:01 | HP ---
CHIEF COMPLAINT: Right lower extremity pain. HISTORY OF PRESENT ILLNESS: Mr. Snow is a 66-year-old male who is well known to our service. He has had a tibia fracture last summer of 2016, which became infected. The patient was treated with I V antibiotics in an attempt to keep the nail in place for removal. Later, the patient was in a [facility] until about had a graft for an unhealed wound by Dr. Ordoñez in June and had a cellulitis, increasing pain in his right leg. Given this, seeing the films on the patient's x-ray had healed. I felt that I would at that point discussed with him removing his nail. I placed an ant ibiotic spacer in early of 08/2017. The patient then was admitted afterwards and then was sent to [facility] where he was previously living. The patient was overnight admitted for elevated blood bruce gars. The patient has a history of elevated blood sugars. He understood that we are planning to abi e the antibiotic nail out that we placed at about 2 weeks postoperative. The plan is he will be tori maria for that plan of course. PAST MEDICAL HISTORY: Diabetes type 1, chronic kidney disease stage 4, hypertension, coronary artery disease. PAST SURGICAL HISTORY: Coronary artery bypass, left ankle and right elbow surgery not otherwise spec ified, right fifth toe amputation, the above stated tibia nail removal grafting. MEDICATIONS: Please see administration full list. SOCIAL HISTORY: Patient is a nonsmoker, nondrinker. Two children, . His son is Maricruz mendoza. FAMILY HISTORY: Significant for diabetes and coronary artery disease. ALLERGIES: SULFA. PHYSICAL EXAMINATION: GENERAL: Alert and oriented male in no acute distress, resting comfortably in bed. HEENT: Extraocular muscles intact. LUNGS: Unlabored, nontender to palpation, bilateral flanks. CARDIOVASCULAR: Regular rate. EXTREMITIES: The patient's right lower extremity has got chronic venous stasis changes. The patient 's sutures are clean, dry, and intact. There is no gross erythema or drainage noted. The patient giang s dry, scaly skin. The patient's exam continues to have minimal flexion and extension of his toes. LABORATORY DATA: The patient's most recent hemoglobin is 7.6. IMPRESSION: 1. Right tibia nail with postoperative infection, osteomyelitis, status post antibiotic spacer nail placement. 2. Diabetes. 3. Hypertension. 4. Coronary artery disease. 5. Obesity. 6. Anemia of chronic disease. ASSESSMENT AND PLAN: The patient will undergo antibiotics nail removal versus exchange as needed. H e undergone I&D and closure. The patient will be admitted to the hospital for IV antibiotics and lik silvia be discharged home, followed by medicine. I discussed with patient the risks and benefits of suleiman salas and he understands. He is currently not actually in any pain since we have done the antibiotic nail, he has been ambulating on his leg. We will follow up with the patient in the hospital postoper atively.
--- NOTE | 2017-09-02 13:11 | OP ---
DATE OF SERVICE: 09/02/2017 PREOPERATIVE DIAGNOSES: Right proximal tibial fracture with intramedullary nailing with osteomyeliti s, postoperative infection, and status post implantation of antibiotic nail. PROCEDURES PERFORMED: 1. Irrigation and debridement on of bone/osteomyelitis, right tibia. 2. Removal of antibiotic nail. STAFF: Clem Hussein M.D. FAMILY LAW ATTORNEY: Michael Mccoy PA-C ANESTHESIA: . The patient received general endotracheal intubation. ESTIMATED BLOOD LOSS: 100 mL TOURNIQUET TIME: None. IMPLANTS: None. EXPLANTS: Hubcap with antibiotic spacer. ANTIBIOTICS: Patient is currently on scheduled vancomycin. COMPLICATIONS: None. HISTORY OF PRESENT ILLNESS: Mr. Snow is a pleasant 66-year-old male with diabetes, coronary chio ry disease, end-stage renal disease, and osteomyelitis of right leg. The patient has been followed b y my service for almost a calendar year. The patient had a recent antibiotic nail placed, states carlos t he is currently feeling good, has no pain, ambulating on his right leg. I discussed him preoperati vely risks and benefits of I&D of the tibia with removal of antibiotic spacer and need for further pr ocedures. The patient and family understood the risks and benefits of procedure to include pain, sca r, bleeding, infection, damage to vital structures, decreased range of motion or strength, failure of failure, continued pain despite intervention, need for further surgeries, loss of life or limb. The patient and family understood the risks and benefits of procedure and elected to proceed. PROCEDURE IN DETAIL: After timeout was performed, the patient's right lower extremity as the operati ve site based on sight, consents, and markings. After timeout, the patient's right extremity was pre pped and draped in sterile fashion. The sutures had been removed before the procedure. All sites of proximal screw holes with distal screw holes used to bluntly open up the skin. I found the tendon t ear which we cut and removed excess. We then exposed and came down on the patient's nail. We remove d the hubcap as well as the entire antibiotic nail. We curetted out the canal. We then washed with 5 liters of fluid. We used the distal tibia screw hole, washed fluid through distally to help with e vacuation, we completed our washout. We then closed with 0 PDS closed the tendon and Prolene for the skin. The patient will be placed in a knee immobilizer, do weightbearing as tolerated once the sutu res are taken out in 2-3 weeks postop. The patient will be admitted to hospital and continue to have antibiotics, post-op pain control, and eventually transfer back to [facility]. The patient's out come is guarded, and he potentially may require long-term antibiotics for suppression.
[2017-09-02] MEDS ORDERED: Fentanyl 5000 MCG/250 ML CADD IVPB PRN (13:44)
[2017-09-02] MEDS ORDERED: diphenhydrAMINE 50 MG/ML VIAL IM PRN (13:44)
[2017-09-02] MEDS ORDERED: Zolpidem Tartrate 5 MG TAB PO PRN (13:44)
[2017-09-02] MEDS ORDERED: Naloxone HCl 0.4 mg/ml Vial IV PRN (13:44)
[2017-09-02] MEDS ORDERED: Promethazine HCl 25 MG/ML VIAL IM PRN ×2 (13:44→14:58)
[2017-09-02] MEDS ORDERED: diphenhydrAMINE 50 MG/ML VIAL IVP PRN (13:44)
[2017-09-02] MEDS ORDERED: Communication Order-Pharmacy FS SCH ×2 (13:45→14:58)
[2017-09-02] MEDS ORDERED: traMADol HCl 50 MG TAB PO PRN ×2 (14:58)
[2017-09-02] MEDS ORDERED: HYDROcodone/Acetaminophen 10/325 mg Tablet PO PRN ×2 (14:58)
[2017-09-02] MEDS ORDERED: Fentanyl 100 MCG/2 ML VIAL SLOW IVP PRN (14:58)
[2017-09-02] MEDS ORDERED: Ondansetron HCl/PF 4 MG/2 ML Vial IV PRN (14:58)
[2017-09-02] MEDS ORDERED: Acetaminophen 325 MG TAB PO PRN (14:58)
[2017-09-02] MEDS ORDERED: Bisacodyl 10 MG SUPP PR PRN ×2 (14:58→15:12)
[2017-09-02] MEDS ORDERED: Dextrose 5% in Water 1,000 ML IV PRN (15:11)
[2017-09-02] MEDS ORDERED: Dextrose 50% Abboject 50 ML SYRINGE SLOW IVP PRN (15:11)
--- NOTE | 2017-09-02 15:18 | PDOC.PN ---
- Subjective Encounter Start Date: 09/02/17 Encounter Start Time: 15:15 patient is seen today, alert and oriented, he is S/p Right TIbial Fracture with intramedullary nail which was infected and diagnosed osteomyelitis on vancomycin, the infected nail is reomved and irrigated and then replaced with new Antibiotics Nail implantation, Patient has known h/o DM type2 on insulin pump a home,known HTN, with h/o CABG. Patient is post op day 1 today, he is on pain pump well controlled. He has back pain. No other concenr snoted. - Objective MAR Reviewed: Yes Vital Signs & Weight: Weight Weight 265 lb Additional Labs: Accuchecks 09/02/17 09/02/17 09/02/17 11:06 09:31 08:51 POC Glucose 238 H 249 H 327 H Radiology Reviewed by me: Yes Phys Exam - Physical Examination HEENT: PERRLA, moist MMs Neck: no nodes, no JVD Respiratory: no wheezing, no rales Cardiovascular: RRR, no significant murmur Gastrointestinal: soft, non-tender Musculoskeletal: edema present (right leg in Cast) Neurological: non-focal, normal sensation Lymphatic: no nodes Dx/Plan (1) Osteomyelitis of right tibia Code(s): M86.9 - OSTEOMYELITIS, UNSPECIFIED Status: Acute Qualifiers: Osteomyelitis type: other acute Qualified Code(s): M86.161 - Other acute osteomyelitis, right tibia and fibula Comment: Seen by orthopedic surgwey Post op today day 1 , Lola has intramedulary removal and rteplaceing with new one, Will get CBC and Blood Cultures. discussed with PA of Dr. Hussein, said he would discuss with his doctor about Antibitoics, his last Blood Cultures were positive for MRSA on . (2) CAD (coronary artery disease) Code(s): I25.10 - ATHSCL HEART DISEASE OF [place] CORONARY ARTERY W/O ANG PCTRS Status: Chronic Qualifiers: Comment: Stable. Will need to restart on Aspirin as sonn as Ortho feel appropriate to do so. wait for ortho recommedations. (3) DM2 (diabetes mellitus, type 2) Status: Chronic Qualifiers: Comment: Will restart on Home dose levemir and SSI. Plan to Keep BG 140-180, titrate up the levemir as needed. (4) HTN (hypertension) Code(s): I10 - ESSENTIAL (PRIMARY) HYPERTENSION Status: Chronic Comment: stable. restart pt on home Meds. Keep BP <130/80 - Plan cont current plan of care, continue antibiotics, PT/OT, social service technician, incentive spirometry, DVT proph w/SCDs * . - Discharge Day Encounter end time: 16:00 Review of Systems - Review of Systems Constitutional: weakness Eyes: negative: Pain, Vision Change, Conjunctivae Inflammation, Eyelid Inflammation, Redness, Other ENT: negative: Ear Pain, Ear Discharge, Nose Pain, Nose Discharge, Nose Congestion, Mouth Pain, Mouth Swelling, Throat Pain, Throat Swelling, Other Respiratory: negative: Cough, Dry, Shortness of Breath, Hemoptysis, SOB with Excertion, Pleuritic Pain, Sputum, Wheezing Cardiovascular: negative: chest pain, palpitations, orthopnea, paroxysmal nocturnal dyspnea, edema, light headedness, other Gastrointestinal: negative: Nausea, Vomiting, Abdominal Pain, Diarrhea, Constipation, Melena, Hematochezia, Other Genitourinary: negative: Dysuria, Frequency, Incontinence, Hematuria, Retention , Other Musculoskeletal: Leg Pain - Medications/Allergies Allergies/Adverse Reactions: Allergies Allergy/AdvReac Type Severity Reaction Status Date / Time Sulfa (Sulfonamide Allergy Verified 09/01/17 15:37 Antibiotics) Medications: Current Medications Acetaminophen (Tylenol) 650 mg PO Q6H PRN PRN Reason: Headache/Temp >101F/Mild Pain Albuterol/Ipratropium (Duoneb) 3 ml NEB TID-RT CROW Atorvastatin Calcium (Lipitor) 40 mg PO HS CROW Bisacodyl (Dulcolax) 10 mg MO DAILYPRN PRN PRN Reason: Constipation Bisacodyl (Dulcolax) 10 mg MO Q8H PRN PRN Reason: Constipation Bumetanide (Bumex) 0.5 mg PO BID-AC CROW Calcium Acetate (Phoslo) 1,334 mg PO TID-WM CROW Dextrose/Water (Dextrose 50%) 25 gm SLOW IVP PRN PRN PRN Reason: Hypoglycemia Diphenhydramine HCl (Benadryl) 25 mg IVP Q3H PRN PRN Reason: Itching Diphenhydramine HCl (Benadryl) 25 mg PO Q3H PRN PRN Reason: Itching Diphenhydramine HCl (Benadryl) 25 mg IM Q3H PRN PRN Reason: Itching Docusate Sodium (Colace) 100 mg PO BID [facility] Duloxetine HCl (Cymbalta) 60 mg PO BID [facility] Enoxaparin Sodium (Lovenox) 30 mg SC 0900 [facility] Fentanyl (Fentanyl Cadd) 0 mcg IVPB INF PRN PRN Reason: Pain Fentanyl (Duragesic) 25 mcg TD Q3D@1600 CROW Glucagon (Glucagon) 1 mg IM PRN PRN PRN Reason: Hypoglycemia Hydralazine HCl (Apresoline) 25 mg PO QID [facility] Dextrose/Water (D5w) 1,000 mls @ 0 mls/hr IV .Q0M PRN; As Directed PRN Reason: Hypoglycemia Insulin Detemir 25 units/ (Miscellaneous Medication) 0.25 mls @ 0 mls/hr SC HS [facility] Insulin Human Lispro (Humalog) 0 units SC .MODERATE SLIDING SC PRN PRN Reason: Moderate [place] Scale Levothyroxine Sodium (Synthroid) 25 mcg PO 0600 [facility] Miscellaneous Information (Communication Order-Pharmacy) 1 each FS ONE [facility] Stop: 09/02/17 23:00 Miscellaneous Information (Communication Order-Pharmacy) 1 each FS ONE [facility] Stop: 09/02/17 23:00 Naloxone HCl (Narcan) 0.2 mg IV Q5MIN PRN PRN Reason: Opiate Reversal Ondansetron HCl (Zofran) 4 mg IV Q6H PRN PRN Reason: Nausea Promethazine HCl (Phenergan) 12.5 mg IM Q4H PRN PRN Reason: Nausea Rosuvastatin Calcium (Crestor) 20 mg PO QAM [facility] Sodium Chloride (Flush - Normal Saline) 10 ml IVF PRN PRN PRN Reason: Saline Flush Tamsulosin HCl (Flomax) 0.4 mg PO HS [facility] Zolpidem Tartrate (Ambien) 5 mg PO HSPRN PRN PRN Reason: Insomnia
[2017-09-02 15:44] LABS: #Basophils 0.1 thou/uL (0.0-0.2); #Eosinphils 0.2 thou/uL (0.0-0.7); #Lymphocytes 1.5 thou/uL (1.20-3.40); #Monocytes 0.5 thou/uL (0.11-0.59); #Neutrophils 6.4 thou/uL (1.40-6.50); %Basophils 0.9 % (0.0-1.0); %Eosinophils 2.3 % (0.0-10.0); %Lymphocytes 16.8 % (21.0-51.0); %Monocytes 5.3 % (0.0-10.0); %Neutrophils 74.7 % (42.0-75.0); Hemoglobin 7.6 g/dL (14.0-18.0); Mean Corpuscular HGB CONC 33.2 g/dL (32.0-36.0); Mean Corpuscular Hemoglobin 29.7 pg (27.0-31.0); Mean Corpuscular Volume 89.6 fl (80.0-94.0); Mean Platelet Volume 7.4 fL (7.4-10.4); Platelet Count 249 thou/uL (130-400); Red Blood Cell (RBC) Count 2.55 mill/uL (4.70-6.10); White Blood Cell (WBC) Count 8.6 thou/uL (4.8-10.8)
[2017-09-02 15:51] LABS: Hemoglobin A1c 7.1 % (4.0-6.0)
[2017-09-02 16:04] LABS: Anion Gap 11 mmol/L (10-20); BUN (Urea Nitrogen) 44 mg/dL (8.4-25.7); Calc. Creatinine Clearance 48 mL/min (70-130); Carbon Dioxide 23 mmol/L (23-31); Chloride 103 mmol/L (98-107); Estimated GFR-MDRD 25; Glucose 268 mg/dL (80-115); Potassium 4.4 mmol/L (3.5-5.1); Sodium 133 mmol/L (136-145)
[2017-09-02] MEDS ORDERED: PROPOFOL 200 MG/20 ML VIAL ONE (16:13)
[2017-09-02] MEDS ORDERED: Lidocaine 1% PF 5 ML VIAL ONE (16:13)
[2017-09-02] MEDS ORDERED: Succinylcholine Chloride 20 MG/ML 10 ml SYRINGE FS ONE (16:13)
[2017-09-02] MEDS ORDERED: PHENYLEPHRINE-NS 100 MCG/ML 10 ML SYRINGE ONE (16:13)
[2017-09-02] MEDS ORDERED: ePHEDrine/0.9% NaCl/PF SYRINGE 50 mg/10 ml ONE (16:13)
[2017-09-02] MEDS: Bumetanide 1 MG TAB PO SCH (16:22)
[2017-09-02] MEDS: hydrALAZINE 25 MG TAB PO SCH ×2 (16:22→20:04)
[2017-09-02] MEDS: Calcium Acetate 667 MG CAP PO SCH (16:22)
[2017-09-02] MEDS: DULoxetine 60 MG CAP PO SCH (20:03)
[2017-09-02] MEDS: Atorvastatin Calcium 40 MG TAB PO SCH (20:03)
[2017-09-02] MEDS: Docusate 100 MG CAP PO SCH (20:03)
[2017-09-02] MEDS: Tamsulosin HCl 0.4 MG CAP PO SCH (20:03)
[2017-09-02] MEDS: Insulin Detemir 100 UNITS/ML 35 UNITS in Admixture Fee 1 EACH SC SCH (20:04)
[2017-09-02] MEDS ORDERED: Insulin Detemir 100 UNITS/ML 25 UNITS in Admixture Fee 1 EACH SC SCH (21:00)
[2017-09-03 04:20] LABS: #Eosinphils 0.2 thou/uL (0.0-0.7); #Lymphocytes 1.5 thou/uL (1.20-3.40); #Monocytes 0.4 thou/uL (0.11-0.59); #Neutrophils 3.4 thou/uL (1.40-6.50); %Basophils 0.3 % (0.0-1.0); %Eosinophils 3.3 % (0.0-10.0); %Lymphocytes 26.6 % (21.0-51.0); %Neutrophils 61.8 % (42.0-75.0); Hemoglobin 7.7 g/dL (14.0-18.0); Mean Corpuscular HGB CONC 32.4 g/dL (32.0-36.0); Mean Corpuscular Hemoglobin 29.3 pg (27.0-31.0); Mean Corpuscular Volume 90.3 fl (80.0-94.0); Mean Platelet Volume 7.8 fL (7.4-10.4); Platelet Count 229 thou/uL (130-400); RBC Distribution Width 15.3 % (11.5-14.5); Red Blood Cell (RBC) Count 2.62 mill/uL (4.70-6.10); White Blood Cell (WBC) Count 5.5 thou/uL (4.8-10.8)
[2017-09-03 04:36] LABS: ALT (SGPT) Less than 7 U/L (8-55); AST (SGOT) 10 U/L (5-34); Albumin 2.8 g/dL (3.4-4.8); Alkaline Phosphatase 137 U/L (40-150); Anion Gap 15 mmol/L (10-20); BUN (Urea Nitrogen) 45 mg/dL (8.4-25.7); Bilirubin, Total 0.2 mg/dL (0.2-1.2); Calc. Creatinine Clearance 43 mL/min (70-130); Calcium 8.7 mg/dL (7.8-10.44); Carbon Dioxide 22 mmol/L (23-31); Chloride 100 mmol/L (98-107); Estimated GFR-MDRD 22; Globulin 3.7 g/dL (2.4-3.5); Glucose 430 mg/dL (80-115); Potassium 4.7 mmol/L (3.5-5.1); Protein, Total 6.5 g/dL (5.8-8.1); Sodium 132 mmol/L (136-145)
[2017-09-03] MEDS: Levothyroxine Sodium 25 MCG TAB PO SCH (05:58)
[2017-09-03] MEDS: Docusate 100 MG CAP PO SCH ×2 (08:30→20:47)
[2017-09-03] MEDS: Calcium Acetate 667 MG CAP PO SCH ×3 (08:30→17:06)
[2017-09-03] MEDS: hydrALAZINE 25 MG TAB PO SCH ×4 (08:30→20:48)
[2017-09-03] MEDS: DULoxetine 60 MG CAP PO SCH ×2 (08:30→20:47)
[2017-09-03] MEDS: Enoxaparin Sodium 30 MG/0.3 ML SYRINGE SC SCH (08:30)
[2017-09-03] MEDS: Bumetanide 1 MG TAB PO SCH ×2 (08:31→17:06)
[2017-09-03] MEDS: Rosuvastatin 20 MG TAB PO SCH (08:43)
[2017-09-03] MEDS: Insulin Detemir 100 UNITS/ML 35 UNITS in Admixture Fee 1 EACH SC SCH (08:43)
[2017-09-03] MEDS: diphenhydrAMINE 25 MG CAP PO PRN ×2 (11:42→20:47)
[2017-09-03] MEDS: Sodium Chloride 0.9% 1,000 ML IV SCH (11:42)
[2017-09-03] MEDS: HumaLOG 300 UNITS/3 ML VIAL SC PRN ×2 (11:45→17:07)
[2017-09-03] MEDS ORDERED: Insulin Detemir 100 UNITS/ML 5 UNITS in Pre-Filled Syringe 1 EACH SC SCH (12:15)
[2017-09-03] MEDS: ALPRAZolam 0.5 MG TAB PO SCH ×2 (12:49→17:06)
--- NOTE | 2017-09-03 13:10 | CON ---
DATE OF CONSULTATION: 09/03/2017 CONSULTING PHYSICIAN: Monika REASON FOR CONSULTATION: Chronic kidney disease. REASON FOR ADMISSION: Right lower extremity pain. HISTORY OF PRESENT ILLNESS: A 66-year-old male with history of type 2 diabetes, hypertension, chroni c kidney disease, came to the hospital with the above complaints and is being treated by Orthopedic Rebecca guzman. The patient's creatinine is stable and he does have chronic kidney disease. He denies any c hest pain, palpitation, fever or chills, no nausea or vomiting to me. PAST MEDICAL HISTORY: Diabetes, hypertension, coronary artery disease, chronic kidney disease. PAST SURGICAL HISTORY: Coronary artery bypass, left ankle and right elbow surgery, left toe surgery. HOME MEDICATIONS: Xanax, Lantus, [place], ascorbic acid, Cymbalta, Levemir, Synthroid, Humulin, MiraLa x, Senokot, Crestor. ALLERGIES: SULFA. SOCIAL HISTORY: No smoking, alcohol or drug abuse. FAMILY HISTORY: No history of kidney disease. REVIEW OF SYSTEMS: The following complete review of systems was negative, unless otherwise mentioned in the HPI or below: Constitutional: Weight loss or gain, ability to conduct usual activities. Skin: Rash, itching. Eyes: Double vision, pain. ENT/Mouth: Nose bleeding, neck stiffness, pain, tenderness. Cardiovascular: Palpitations, dyspnea on exertion, orthopnea. Respiratory: Shortness of breath, wheezing, cough, hemoptysis, fever or night sweats. Gastrointestinal: Poor appetite, abdominal pain, heartburn, nausea, vomiting, constipation, or diarrhea. Genitourinary: Urgency, frequency, dysuria, nocturia. Musculoskeletal: Pain, swelling. Neurologic/Psychiatric: Anxiety, depression. Allergy/Immunologic: Skin rash, bleeding tendency. PHYSICAL EXAMINATION: GENERAL: This is an elderly male in no apparent distress. VITAL SIGNS: Temperature 97.8, pulse 92, respiratory rate 18, blood pressure 109/50. HEENT: Atraumatic, normocephalic. Oral mucosa is moist. NECK: Supple. CARDIOVASCULAR: S1, S2 heard. Rate and rhythm regular. RESPIRATORY: Clear. ABDOMEN: Soft. MUSCULOSKELETAL: 1+ edema. DERMATOLOGIC: No skin rash. NEUROLOGIC: Alert, awake. PSYCHIATRIC: Mood and affect normal. LABORATORY AND X-RAY FINDINGS: Creatinine is 2.8, potassium was 4.7. ASSESSMENT AND PLAN: 1. Acute kidney injury on chronic kidney disease stage 4. The patient needs close follow up as outp atient. 2. Hyperglycemia. 3. Type 2 diabetes. 4. Edema. 5. Hypertension. 6. Renal function close to baseline. No acute indication for dialysis. We will monitor. The patient needs close follow up as outpatient. We will follow. Thank you for the consult.
[2017-09-03] MEDS ORDERED: Vancomycin HCl 750 MG in Sodium Chloride 0.9% 250 ML 250 ML IVPB SCH (15:00)
--- NOTE | 2017-09-03 15:00 | PDOC.PN ---
- Subjective Encounter Start Date: 09/03/17 Encounter Start Time: 10:00 PATIENT is seen today, alert and oriented. No other concern snoted. Patient still has pain 4/10 on RESIDENTIAL ENERGY AUDITOR. - Objective MAR Reviewed: Yes Vital Signs & Weight: Vital Signs (12 hours) Temp Pulse Resp BP BP Pulse Ox 09/03/17 14:32 80 20 09/03/17 14:15 95/62 09/03/17 11:48 98.3 F 92 18 96/52 L 95 09/03/17 09:34 93 L 09/03/17 09:29 92 20 93 L 09/03/17 08:46 97.8 F 92 20 97 09/03/17 08:30 109/54 L 09/03/17 08:09 97.8 F 89 16 118/72 97 09/03/17 04:23 98.1 F 83 16 116/69 96 Weight Weight 265 lb I&O: 09/02/17 09/03/17 09/04/17 06:59 06:59 06:59 Intake Total 1360 Output Total 1175 Balance 185 Result Diagrams: 09/03/17 03:30 09/03/17 03:30 Additional Labs: Accuchecks 09/03/17 09/03/17 09/02/17 11:05 05:49 20:34 POC Glucose 315 H 387 H 494 H 09/02/17 12:33 POC Glucose 209 H Radiology Reviewed by me: Yes Phys Exam - Physical Examination Constitutional: NAD HEENT: PERRLA, moist MMs Neck: no nodes, no JVD Respiratory: no wheezing, no rales Cardiovascular: RRR, no significant murmur Gastrointestinal: soft, non-tender Musculoskeletal: pulses present Neurological: non-focal, normal sensation Dx/Plan (1) Osteomyelitis of right tibia Code(s): M86.9 - OSTEOMYELITIS, UNSPECIFIED Status: Acute Qualifiers: Osteomyelitis type: other acute Qualified Code(s): M86.161 - Other acute osteomyelitis, right tibia and fibula Comment: Seen by orthopedic surgwey Post op today day2 , Lola has intramedulary removal and rteplaceing with new one, Stbale on RESIDENTIAL ENERGY AUDITOR. No Antibiotics yet, i will leave this upto orthopedics, Discussed with nurse to confirm with Orthopedics PA. (2) CAD (coronary artery disease) Code(s): I25.10 - ATHSCL HEART DISEASE OF [place] CORONARY ARTERY W/O ANG PCTRS Status: Chronic Qualifiers: Comment: Stable. Aspoirin when Able to by orthopedics (3) DM2 (diabetes mellitus, type 2) Status: Chronic Qualifiers: Comment: Will increase levemir 40units BID and SSI. Plan to Keep BG 140-180, titrate up the levemir as needed. (4) HTN (hypertension) Code(s): I10 - ESSENTIAL (PRIMARY) HYPERTENSION Status: Chronic Comment: stable. restart pt on home Meds. Keep BP <130/80 - Plan cont current plan of care, PT/OT, social worker health services, respiratory therapy, incentive spirometry, DVT proph w/lovenox * . - Discharge Day Encounter end time: 10:35 Review of Systems - Review of Systems Constitutional: negative: fever, chills, sweats, weakness, malaise, other Eyes: negative: Pain, Vision Change, Conjunctivae Inflammation, Eyelid Inflammation, Redness, Other ENT: negative: Ear Pain, Ear Discharge, Nose Pain, Nose Discharge, Nose Congestion, Mouth Pain, Mouth Swelling, Throat Pain, Throat Swelling, Other Respiratory: negative: Cough, Dry, Shortness of Breath, Hemoptysis, SOB with Excertion, Pleuritic Pain, Sputum, Wheezing Cardiovascular: negative: chest pain, palpitations, orthopnea, paroxysmal nocturnal dyspnea, edema, light headedness, other Genitourinary: negative: Dysuria, Frequency, Incontinence, Hematuria, Retention , Other Musculoskeletal: Leg Pain - Medications/Allergies Allergies/Adverse Reactions: Allergies Allergy/AdvReac Type Severity Reaction Status Date / Time Sulfa (Sulfonamide Allergy Verified 09/01/17 15:37 Antibiotics) Medications: Current Medications Acetaminophen (Tylenol) 650 mg PO Q6H PRN PRN Reason: Headache/Temp >101F/Mild Pain Albuterol/Ipratropium (Duoneb) 3 ml NEB TID-RT [facility] Last Admin: 09/03/17 14:32 Dose: 3 ml Alprazolam (Xanax) 0.5 mg PO 0800,1300,1800 [facility] Last Admin: 09/03/17 12:49 Dose: 0.5 mg Alprazolam (Xanax) 0.5 mg PO HS [facility] Atorvastatin Calcium (Lipitor) 40 mg PO HS [facility] Last Admin: 09/02/17 20:03 Dose: 40 mg Bisacodyl (Dulcolax) 10 mg [place] Q8H PRN PRN Reason: Constipation Bumetanide (Bumex) 0.5 mg PO BID-AC [facility] Last Admin: 09/03/17 08:31 Dose: 0.5 mg Calcium Acetate (Phoslo) 1,334 mg PO TID-WM [facility] Last Admin: 09/03/17 11:42 Dose: 1,334 mg Dextrose/Water (Dextrose 50%) 25 gm SLOW IVP PRN PRN PRN Reason: Hypoglycemia Diphenhydramine HCl (Benadryl) 25 mg IVP Q3H PRN PRN Reason: Itching Last Admin: 09/03/17 00:18 Dose: 25 mg Diphenhydramine HCl (Benadryl) 25 mg PO Q3H PRN PRN Reason: Itching Last Admin: 09/03/17 11:42 Dose: 25 mg Diphenhydramine HCl (Benadryl) 25 mg IM Q3H PRN PRN Reason: Itching Docusate Sodium (Colace) 100 mg PO BID [facility] Last Admin: 09/03/17 08:30 Dose: 100 mg Duloxetine HCl (Cymbalta) 60 mg PO BID [facility] Last Admin: 09/03/17 08:30 Dose: 60 mg Enoxaparin Sodium (Lovenox) 30 mg SC 0900 [facility] Last Admin: 09/03/17 08:30 Dose: 30 mg Fentanyl (Fentanyl Cadd) 0 mcg IVPB INF PRN PRN Reason: Pain Fentanyl (Duragesic) 25 mcg TD Q3D@1600 [facility] Last Admin: 09/02/17 16:46 Dose: 25 mcg Glucagon (Glucagon) 1 mg IM PRN PRN PRN Reason: Hypoglycemia Hydralazine HCl (Apresoline) 25 mg PO QID [facility] Last Admin: 09/03/17 14:15 Dose: Not Given Dextrose/Water (D5w) 1,000 mls @ 0 mls/hr IV .Q0M PRN; As Directed PRN Reason: Hypoglycemia Insulin Detemir 40 units/ (Miscellaneous Medication) 0.4 mls @ 0 mls/hr SC BID [facility] PRN Reason: As Directed Sodium Chloride (Normal Saline 0.9%) 1,000 mls @ 75 mls/hr IV .[id number] [facility] Last Admin: 09/03/17 11:42 Dose: 1,000 mls Vancomycin HCl 750 mg/ Sodium (Chloride) 250 mls @ 250 mls/hr IVPB 0300,1500 [facility] Insulin Human Lispro (Humalog) 0 units SC .MODERATE SLIDING SC PRN PRN Reason: Moderate Correctional Scale Last Admin: 09/03/17 11:45 Dose: 8 unit Levothyroxine Sodium (Synthroid) 25 mcg PO 0600 [facility] Last Admin: 09/03/17 05:58 Dose: 25 mcg Naloxone HCl (Narcan) 0.2 mg IV Q5MIN PRN PRN Reason: Opiate Reversal Ondansetron HCl (Zofran) 4 mg IV Q6H PRN PRN Reason: Nausea Promethazine HCl (Phenergan) 12.5 mg IM Q4H PRN PRN Reason: Nausea Rosuvastatin Calcium (Crestor) 20 mg PO QAM [facility] Last Admin: 09/03/17 08:43 Dose: 20 mg Sodium Chloride (Flush - Normal Saline) 10 ml IVF PRN PRN PRN Reason: Saline Flush Tamsulosin HCl (Flomax) 0.4 mg PO HS [facility] Last Admin: 09/02/17 20:03 Dose: 0.4 mg Zolpidem Tartrate (Ambien) 5 mg PO HSPRN PRN PRN Reason: Insomnia Last Admin: 09/02/17 20:03 Dose: 5 mg
[2017-09-03] MEDS ORDERED: Sterile Water 10 ML VIAL IVP SCH (19:03)
[2017-09-03] MEDS ORDERED: Activase 2 MG VIAL CATH SCH (19:03)
[2017-09-03] MEDS: Insulin Detemir 100 UNITS/ML 40 UNITS in Pre-Filled Syringe 1 EACH SC SCH (20:46)
[2017-09-03] MEDS: Tamsulosin HCl 0.4 MG CAP PO SCH (20:47)
[2017-09-03] MEDS: Atorvastatin Calcium 40 MG TAB PO SCH (20:47)
[2017-09-03] MEDS ORDERED: ALPRAZolam 0.5 MG TAB PO SCH (21:00)
--- NOTE | 2017-09-03 22:23 | CON ---
DATE OF CONSULTATION: 09/03/2017 REASON FOR CONSULTATION: Readmission for removal of tibial nail and washout. HISTORY OF PRESENT ILLNESS: A 66-year-old known to us from prior visits who has a history of type 2 diabetes, hypertension, and stage III renal insufficiency with previous right tibia, fibula fracture in 01/2017. The patient had an intervention and developed an infection at the site. We decided to t reat for a protracted period of time with vancomycin and gram negative coverage, which was cefepime. He received pretty much 42 days in the long term. In June, he had a nonhealing wound in the right patellar tendon area with exposed tendon and had debridement, an application of skin graft and then developed worsening inflammatory changes around the knee area and was admitted at the beginning of this month. He had removal of the remaining hardware from the right tibia fibula and at this time , repeat imaging studies were suggestive of osteomyelitis. This consisted of a bone scan, which show ed findings suspicious of the right proximal tibial osteomyelitis. The organism isolated was methici llin-resistant Staphylococcus aureus and we are planning to continue IV vancomycin through a PICC sherita e in left upper extremity. The end date of therapy was going to be until the end of September or the first weeks of October. The patient at this time is admitted for irrigation and debridement of the rig ht tibial bone and removal of antibiotic nail. The procedure was reviewed. The area was washed. Th e nail was removed and the canal was curetted out. Currently, he is having moderate pain in the righ t knee area. No headaches, no change in visual symptoms, sore throat, odynophagia or dysphagia. No dyspnea or cough. No chest pain. No abdominal pain. He is voiding spontaneously. No diarrhea. No change in neurological condition. PAST MEDICAL AND SURGICAL HISTORY: Obesity, type 2 diabetes, renal insufficiency stage 3, hypertensi on, neuropathy, fracture of the right lower extremity with ORIF and then the complications noted abov e. ALLERGIES: SULFA DRUGS with rash. CURRENT MEDICATIONS: Tylenol, DuoNebs, Xanax, Lipitor, Dulcolax, Bumex, PhosLo, dextrose, Benadryl, Cymbalta, Colace, Lovenox, fentanyl, glucagon, insulin, Synthroid, Narcan, Crestor and vancomycin. FAMILY HISTORY: Noncontributory. SOCIAL HISTORY: Lives in a long term. No smoking history. PHYSICAL EXAMINATION: VITAL SIGNS: The patient has been afebrile through the hospital stay. Blood pressure 194/57, pulse 95, respirations 12-20 and O2 sat 96%. SKIN: The findings in the operative site did not remove the dressings at this time. The patient has a PICC line in the left upper extremity. PICC line is flushing, but does not allow withdrawal of bl ood. Does not have a Knight catheter. HEENT: Somewhat disconjugate eye movements. Oral cavity with numerous missing teeth, some gum disea se. NECK: Supple. LUNGS: Symmetric clear breath sounds. HEART: S1 and S2, regular rate. ABDOMEN: Slightly distended, but not tender. No ascites. No bladder distention. GENITOURINARY: No genital abnormalities. EXTREMITIES: Pulses of left lower extremity is 1+ in dorsalis pedis. NEUROLOGIC: He is awake, alert, oriented and follows commands. LABORATORY DATA: White cell count 8.6 and 5.5, hemoglobin 7.6, MCV 89, platelets 249 with essentiall y normal differential. Chemistry with a creatinine of 2.88, which is fairly around his average. Hyp erglycemia noted ranging from mid 200s to 400s. Albumin 2.8. Two sets of blood cultures, no growth to date. MRSA from 08/17, 2 different samples and previously had MRSA and Staph epidermidis from tib ia tissue from February. ASSESSMENT AND DISCUSSION: Type 2 diabetes with chronic renal insufficiency, fracture right tibia wi th the complications noted above, now admitted for removal of the nail impregnated with antimicrobial s. The patient is scheduled to continue on vancomycin at current dose until the end of September and then transition to oral minocycline suppressive therapy for a protracted period of time. The dose wi ll be 100 mg twice daily to be started after the discontinuation of the vancomycin at the end of .
[2017-09-04] MEDS: Sodium Chloride 0.9% 1,000 ML IV SCH ×2 (02:01→12:38)
[2017-09-04] MEDS: Vancomycin HCl 500 MG in Sodium Chloride 0.9% 100 ML IVPB SCH ×2 (02:01→14:59)
[2017-09-04] MEDS: Levothyroxine Sodium 25 MCG TAB PO SCH (05:34)
[2017-09-04] MEDS: diphenhydrAMINE 25 MG CAP PO PRN (05:40)
[2017-09-04 06:34] LABS: Anion Gap 10 mmol/L (10-20); BUN (Urea Nitrogen) 45 mg/dL (8.4-25.7); Calc. Creatinine Clearance 47 mL/min (70-130); Calcium 8.8 mg/dL (7.8-10.44); Carbon Dioxide 27 mmol/L (23-31); Chloride 105 mmol/L (98-107); Estimated GFR-MDRD 24; Glucose 136 mg/dL (80-115); Potassium 4.5 mmol/L (3.5-5.1); Sodium 137 mmol/L (136-145)
--- NOTE | 2017-09-04 09:07 | PRG ---
DATE OF CONSULTATION: 09/04/2017 HISTORY OF PRESENT ILLNESS: Mr. Snow is a pleasant 66-year-old male who is well-known to my serv ice. He has multiple medical problems to include end-stage renal disease, diabetes, history of right coronary artery disease, right tibia fracture with postoperative infection, osteomyelitis, status po st antibiotic nail exchange. The patient is resting comfortably in bed, currently using a NETWORK DESKTOP SUPPORT SPECIALIST. He h as a history of chronic pain use. The patient previously was at [facility]. The patient is curre nt on IV antibiotics under the direction of Dr. Patrick followed by Medicine for control of his blood sugars. The patient is comfortable, resting in bed. He has a knee immobilizer. PHYSICAL EXAMINATION: VITAL SIGNS: The is afebrile. Vital signs are stable. GENERAL: Alert and oriented male in no acute distress. The patient's right lower extremity knee imm obilizer is in place. A little strike-through on the dressing, unchanged exam to the limb distally. IMPRESSION: Right tibia osteomyelitis secondary to postoperative infection status post tibia nail ex change with multiple medical problems. ASSESSMENT AND PLAN: The patient will be discharged back to nursing home. I would like for him t o stay in his knee immobilizer for a week to allow the sutures to heal in place. I do not want the s utures to come back out for 3 weeks given the patient's wound complication issues. He may weightbear as tolerated. The patient will receive his IV antibiotics under the direction of Dr. Patrick and need s antibiotic suppression for a prolonged period of time. The patient ultimately also will need to co ntinue to be medically managed as an outpatient for his brittle diabetes. The patient understands th is. He is in good spirits. We will discontinue his NETWORK DESKTOP SUPPORT SPECIALIST and transition him to p.o. pain medication.
[2017-09-04] MEDS ORDERED: HYDROcodone/Acetaminophen 5/325 mg Tablet PO PRN (09:17)
[2017-09-04] MEDS: hydrALAZINE 25 MG TAB PO SCH ×3 (09:33→16:41)
[2017-09-04] MEDS: Calcium Acetate 667 MG CAP PO SCH ×3 (09:34→16:41)
[2017-09-04] MEDS: DULoxetine 60 MG CAP PO SCH (09:35)
[2017-09-04] MEDS: Bumetanide 1 MG TAB PO SCH ×2 (09:35→16:41)
[2017-09-04] MEDS: ALPRAZolam 0.5 MG TAB PO SCH ×3 (09:36→16:40)
[2017-09-04] MEDS: Docusate 100 MG CAP PO SCH (09:37)
[2017-09-04] MEDS: Insulin Detemir 100 UNITS/ML 40 UNITS in Pre-Filled Syringe 1 EACH SC SCH (09:37)
[2017-09-04] MEDS: Enoxaparin Sodium 30 MG/0.3 ML SYRINGE SC SCH (09:45)
[2017-09-04] MEDS: Rosuvastatin 20 MG TAB PO SCH (09:45)
[2017-09-04] MEDS: HYDROcodone/Acetaminophen 5/325 mg Tablet PO PRN ×2 (12:41→16:40)
--- NOTE | 2017-09-04 14:58 | PDOC.PN ---
- Subjective Encounter Start Date: 09/04/17 Encounter Start Time: 07:15 Patient is seen today, drowsy, pt is S/p Medicated Nick replacement for right Tibia. poorly controlled DM. - Objective MAR Reviewed: Yes Vital Signs & Weight: Vital Signs (12 hours) Temp Pulse Resp BP BP Pulse Ox 09/04/17 12:39 86 125/71 09/04/17 11:00 98 F 86 14 125/71 97 09/04/17 09:51 96 09/04/17 09:50 98.0 F 88 16 97 09/04/17 09:33 88 107/64 09/04/17 07:30 98 F 88 16 107/64 97 09/04/17 04:37 98.6 F 92 19 127/72 98 Weight Weight 265 lb I&O: 09/03/17 09/04/17 09/05/17 06:59 06:59 06:59 Intake Total 1360 Output Total 1175 1700 Balance 185 -1700 Result Diagrams: 09/03/17 03:30 09/04/17 06:05 Additional Labs: Accuchecks 09/04/17 09/04/17 09/03/17 11:00 05:32 20:28 POC Glucose 159 H 149 H 243 H 09/03/17 16:19 POC Glucose 273 H Phys Exam - Physical Examination HEENT: PERRLA, moist MMs Neck: no nodes, no JVD Respiratory: no wheezing, no rales Cardiovascular: RRR, no significant murmur Gastrointestinal: soft, non-tender Musculoskeletal: no edema, pulses present Neurological: non-focal Dx/Plan (1) Osteomyelitis of right tibia Code(s): M86.9 - OSTEOMYELITIS, UNSPECIFIED Status: Acute Qualifiers: Osteomyelitis type: other acute Qualified Code(s): M86.161 - Other acute osteomyelitis, right tibia and fibula Comment: Seen by orthopedic surgwey Post op today day3 , Luzt has intramedulary removal and rteplaceing with new one, Vladislav on BAG BUNDLER. No Antibiotics yet, Pt will be seen by ID today to address Antibitoics. (2) CAD (coronary artery disease) Code(s): I25.10 - ATHSCL HEART DISEASE OF [place] CORONARY ARTERY W/O ANG PCTRS Status: Chronic Qualifiers: Comment: Stable. Aspirin when Able to by orthopedics (3) DM2 (diabetes mellitus, type 2) Status: Chronic Qualifiers: Comment: Well controlled now, Will increase levemir 40units BID and SSI. Plan to Keep BG 140-180, titrate up the levemir as needed. Patient planned to be Sent to Rehab today. Will sign off. (4) HTN (hypertension) Code(s): I10 - ESSENTIAL (PRIMARY) HYPERTENSION Status: Chronic Comment: stable. restart pt on home Meds. Keep BP <130/80 - Plan cont current plan of care, PT/OT, respiratory therapy, DVT proph w/lovenox Will sign off, pt will malia to be back on his insulin pump when he goes home. - Discharge Day Encounter end time: 07:45 Review of Systems - Review of Systems ENT: negative: Ear Pain, Ear Discharge, Nose Pain, Nose Discharge, Nose Congestion, Mouth Pain, Mouth Swelling, Throat Pain, Throat Swelling, Other Respiratory: negative: Cough, Dry, Shortness of Breath, Hemoptysis, SOB with Excertion, Pleuritic Pain, Sputum, Wheezing Cardiovascular: negative: chest pain, palpitations, orthopnea, paroxysmal nocturnal dyspnea, edema, light headedness, other Musculoskeletal: Leg Pain Neurological: negative: Weakness, Numbness, Incoordination, Change in Speech, Confusion, Seizures, Other - Medications/Allergies Allergies/Adverse Reactions: Allergies Allergy/AdvReac Type Severity Reaction Status Date / Time Sulfa (Sulfonamide Allergy Verified 09/01/17 15:37 Antibiotics) Medications: Current Medications Acetaminophen (Tylenol) 650 mg PO Q6H PRN PRN Reason: Headache/Temp >101F/Mild Pain Hydrocodone Bitart/Acetaminophen ([place] 5/325) 1 tab PO Q4H PRN PRN Reason: PAIN SCALE 1-4 Hydrocodone Bitart/Acetaminophen ([place] 5/325) 2 tab PO Q4H PRN PRN Reason: PAIN SCALE 5-10 Last Admin: 09/04/17 12:41 Dose: 2 tab Albuterol/Ipratropium (Duoneb) 3 ml NEB TID-RT [facility] Last Admin: 09/04/17 09:50 Dose: 3 ml Alprazolam (Xanax) 0.5 mg PO 0800,1300,1800 [facility] Last Admin: 09/04/17 12:39 Dose: 0.5 mg Alprazolam (Xanax) 0.5 mg PO [facility] Last Admin: 09/03/17 20:48 Dose: 0.5 mg Atorvastatin Calcium (Lipitor) 40 mg PO [facility] Last Admin: 09/03/17 20:47 Dose: 40 mg Bisacodyl (Dulcolax) 10 mg [place] Q8H PRN PRN Reason: Constipation Bumetanide (Bumex) 0.5 mg PO BID-AC [facility] Last Admin: 09/04/17 09:35 Dose: 0.5 mg Calcium Acetate (Phoslo) 1,334 mg PO TID-WM [facility] Last Admin: 09/04/17 12:39 Dose: 1,334 mg Dextrose/Water (Dextrose 50%) 25 gm SLOW IVP PRN PRN PRN Reason: Hypoglycemia Diphenhydramine HCl (Benadryl) 25 mg IVP Q3H PRN PRN Reason: Itching Last Admin: 09/03/17 00:18 Dose: 25 mg Diphenhydramine HCl (Benadryl) 25 mg PO Q3H PRN PRN Reason: Itching Last Admin: 09/04/17 05:40 Dose: 25 mg Diphenhydramine HCl (Benadryl) 25 mg IM Q3H PRN PRN Reason: Itching Docusate Sodium (Colace) 100 mg PO BID [facility] Last Admin: 09/04/17 09:37 Dose: 100 mg Duloxetine HCl (Cymbalta) 60 mg PO BID [facility] Last Admin: 09/04/17 09:35 Dose: 60 mg Enoxaparin Sodium (Lovenox) 30 mg SC 0900 [facility] Last Admin: 09/04/17 09:45 Dose: 30 mg Fentanyl (Duragesic) 25 mcg TD Q3D@1600 [facility] Last Admin: 09/02/17 16:46 Dose: 25 mcg Glucagon (Glucagon) 1 mg IM PRN PRN PRN Reason: Hypoglycemia Hydralazine HCl (Apresoline) 25 mg PO QID [facility] Last Admin: 09/04/17 12:39 Dose: 25 mg Dextrose/Water (D5w) 1,000 mls @ 0 mls/hr IV .Q0M PRN; As Directed PRN Reason: Hypoglycemia Insulin Detemir 40 units/ (Miscellaneous Medication) 0.4 mls @ 0 mls/hr SC BID [facility] PRN Reason: As Directed Last Admin: 09/04/17 09:37 Dose: 0.4 mls Sodium Chloride (Normal Saline 0.9%) 1,000 mls @ 75 mls/hr IV .[id number] [facility] Last Admin: 09/04/17 12:38 Dose: Not Given Vancomycin HCl 500 mg/ Sodium (Chloride) 100 mls @ 100 mls/hr IVPB 0300,1500 [facility] Last Admin: 09/04/17 02:01 Dose: 100 mls Insulin Human Lispro (Humalog) 0 units SC .MODERATE SLIDING SC PRN PRN Reason: Moderate Correctional Scale Last Admin: 09/03/17 17:07 Dose: 6 unit Levothyroxine Sodium (Synthroid) 25 mcg PO 0600 [facility] Last Admin: 09/04/17 05:34 Dose: 25 mcg Miscellaneous Medication (Pharmacy To Dose) 1 each IVPB ONE PRN PRN Reason: DOSING Stop: 10/03/17 18:26 Naloxone HCl (Narcan) 0.2 mg IV Q5MIN PRN PRN Reason: Opiate Reversal Ondansetron HCl (Zofran) 4 mg IV Q6H PRN PRN Reason: Nausea Promethazine HCl (Phenergan) 12.5 mg IM Q4H PRN PRN Reason: Nausea Rosuvastatin Calcium (Crestor) [facility] [place] Last Admin: 09/04/17 09:45 Dose: 20 mg Sodium Chloride (Flush - Normal Saline) 10 ml IVF PRN PRN PRN Reason: Saline Flush Sodium Chloride (Flush - Normal Saline) 10 ml IVF PRN PRN PRN Reason: Saline Flush Tamsulosin HCl (Flomax) 0.4 mg PO HS [facility] Last Admin: 09/03/17 20:47 Dose: 0.4 mg Zolpidem Tartrate (Ambien) 5 mg PO HSPRN PRN PRN Reason: Insomnia Last Admin: 09/02/17 20:03 Dose: 5 mg
[2017-09-04] MEDS: HumaLOG 300 UNITS/3 ML VIAL SC PRN (16:41)
[2017-09-04 16:42] VITALS: BP 119/71; TEMP 98.4
--- NOTE | 2017-09-04 19:53 | PRG ---
DATE OF SERVICE: 09/04/2017 SUBJECTIVE: Patient was seen and examined at bedside and overnight events noted. Patient denies any shortness of breath or chest pain or palpitation. No history of nausea or vomiting or diarrhea or f ever or chills or cramps. OBJECTIVE: GENERAL: Elderly male in no apparent distress. VITAL SIGNS: Temperature 98.4, pulse 89, respiratory 14, blood pressure 119/71. HEENT: Atraumatic, normocephalic. Oral mucosa is moist. NECK: Supple. CARDIOVASCULAR: S1, S2 heard. Rate and rhythm regular. RESPIRATORY: Clear to auscultation. GASTROINTESTINAL: Abdomen is soft. MUSCULOSKELETAL: No tenderness. No edema. DERMATOLOGIC: No skin rash. NEUROLOGIC: Alert and awake and oriented x3. No focal neurologic deficits. Moving all the extremit ies. PSYCHIATRIC: Mood and affect normal. LABORATORY DATA: Not done today. ASSESSMENT AND PLAN: 1. Acute kidney injury on chronic kidney disease stage 4, stable. 2. Hyperglycemia. 3. Type 2 diabetes. 4. Edema. 5. Hypertension. 6. Overall function is stable. We will sign off.
== END 2017-09-04 17:16 | DRG 496 ==
LOC: SDC 08:00 → SURG A 10:34
PROVIDERS: ADMIT Orthopaedic Surgery; ATTEND Orthopaedic Surgery
PROC: 0QPG04Z Removal of Internal Fixation Device from Right Tibia, Open Approach (ICD-10-PCS; principal; 2017-09-02)
DX: T84.622A Infection and inflammatory reaction due to internal fixation device of right tibia, initial encounter (principal); M86.8X6 Other osteomyelitis, lower leg; N17.9 Acute kidney failure, unspecified; N18.4 Chronic kidney disease, stage 4 (severe); E10.22 Type 1 diabetes mellitus with diabetic chronic kidney disease; E10.65 Type 1 diabetes mellitus with hyperglycemia; Y79.3 Surgical instruments, materials and orthopedic devices (including sutures) associated with adverse incidents; T81.4XXD Infection following a procedure, subsequent encounter; I12.9 Hypertensive chronic kidney disease with stage 1 through stage 4 chronic kidney disease, or unspecified chronic kidney disease; I25.10 Atherosclerotic heart disease of native coronary artery without angina pectoris; Z95.1 Presence of aortocoronary bypass graft; D63.8 Anemia in other chronic diseases classified elsewhere; E66.9 Obesity, unspecified; Z68.38 Body mass index [BMI] 38.0-38.9, adult
CPT/HCPCS: 36415; 36416; 80048; 80053; 83036; 85025; 85610; 85730; 86850; 86900; 86901; 87040; 94640; G8978-GP-CM; G8979-GP-CK; J1200; J1650; J1815; J2001; J2704; J2997; J3010; J3370; J7050; J7620